=== PATIENT | male | born 1940 | race American Indian/Alaskan Native ===

== ENCOUNTER 2022-01-25 16:54 | Inpatient (IN) | payer MEDICARE ==
--- NOTE | 2022-01-25 17:59 | XRay Report ---
CHEST 2 VIEWS INDICATION / CLINICAL INFORMATION: Syncope. COMPARISON: None available. FINDINGS: SUPPORT DEVICES: None. HEART / MEDIASTINUM: Cardiomegaly with normal pulmonary vascularity. LUNGS / PLEURA: No significant pulmonary or pleural abnormality. No pneumothorax. ADDITIONAL FINDINGS: No significant additional findings. IMPRESSION: 1. Cardiomegaly without CHF Signer Name: Andrew Elder MD Signed: 01/25/2022 5:55 PM Workstation Name: [id number]
[2022-01-25 18:26] LABS: Hematocrit 45.7 % (35.5-45.6); Hemoglobin 15.6 gm/dl (11.8-15.2); Mean Corpuscular HGB Conc 34 % (32-34); Mean Corpuscular Volume 92 fl (84-94); Platelet Count 146 K/mm3 (140-440); Red Blood Count 4.97 M/mm3 (3.65-5.03); Red Cell Distribution Width 14.2 % (13.2-15.2)
[2022-01-25 18:36] LABS: INR 1.64 (0.87-1.13)
[2022-01-25 18:49] LABS: Alanine Aminotransferase 15 units/L (7-56); Albumin 3.8 g/dL (3.9-5); BUN/Creatinine Ratio 15; Blood Urea Nitrogen 17 mg/dL (9-20); Calcium 9.6 mg/dL (8.4-10.2); Hemolysis Index 15
[2022-01-25 19:41] LABS: HDL Cholesterol 49 mg/dL (40-59); LDL Cholesterol,Direct 87 mg/dL (50-130)
--- NOTE | 2022-01-25 20:12 | Cat Scan Report ---
CT head/brain wo con INDICATION / CLINICAL INFORMATION: 81 years Male; SYNCOPE. TECHNIQUE: Routine CT head without contrast. All CT scans at this location are performed using CT dos e reduction for ALARA by means of automated exposure control. COMPARISON: None. FINDINGS: BRAIN / INTRACRANIAL CONTENTS: No acute hemorrhage, mass effect, midline shift, hydrocephalus, or acu te, large territorial infarct. Mild to moderate, diffuse cerebral and cerebellar atrophy. There are [id number] areas of decreased attenuation in the white matter of the cerebral hemisph eres. These are nonspecific findings and may be related to microangiopathy (hypertension, diabetes, a therosclerosis), given the patient's age. It might be difficult to evaluate for small areas of ischem ia without diffusion imaging by MRI. CRANIOCERVICAL JUNCTION: No significant abnormality. ORBITS: No significant abnormality of visualized orbits. SINUSES / MASTOIDS: Visualized paranasal sinuses and mastoid air cells are essentially clear. ADDITIONAL FINDINGS: Atherosclerotic disease is seen in the anterior circulation. IMPRESSION: 1. No focal mass, hemorrhage, hydrocephalus, or acute, large territorial infarct. Signer Name: Carlos Gil MD, III Signed: 01/25/2022 8:08 PM Workstation Name: [id number]
[2022-01-25 20:19] LABS: Basophils % (Manual) 0 % (0.0-1.8); RBC Morphology Normal; Total Cells Counted 100
[2022-01-25] MEDS ORDERED: SODIUM CHLORIDE 0.9% 1000 ML 1,000 ML IV ONE (23:34)
[2022-01-26 00:05] LABS: INR 1.56 (0.87-1.13)
[2022-01-26] MEDS ORDERED: ONDANSETRON 4 MG/2 ML INJ IV PRN (02:16)
[2022-01-26] MEDS ORDERED: MORPHINE 4 MG/1 ML INJ IV PRN (02:16)
[2022-01-26] MEDS ORDERED: ACETAMINOPHEN 325 MG TAB PO PRN (02:16)
[2022-01-26] MEDS ORDERED: MORPHINE 2 MG/1 ML INJ IV PRN (02:16)
--- NOTE | 2022-01-26 02:18 | Emergency Department Report ---
ED General Adult HPI - General Chief complaint: Syncope Stated complaint: LOOSING TOO MUCH WATER/FAINTED Time Seen by Provider: 01/25/22 23:31 Source: patient Mode of arrival: Ambulatory Limitations: No Limitations - History of Present Illness Severity scale (0 -10): 0 - Related Data Allergies Allergy/AdvReac Type Severity Reaction Status Date / Time No Known Allergies Allergy Verified 01/25/22 17:25 ED Review of Systems ROS: Stated complaint: LOOSING TOO MUCH WATER/FAINTED Other details as noted in HPI ED Physical Exam - General Limitations: No Limitations General appearance: alert, in no apparent distress - Head Head exam: Present: atraumatic, normocephalic - Eye Eye exam: Present: normal appearance - ENT ENT exam: Present: mucous membranes moist - Neck Neck exam: Present: normal inspection - Respiratory Respiratory exam: Present: normal lung sounds bilaterally. Absent: respiratory distress - Cardiovascular Cardiovascular Exam: Present: regular rate, normal rhythm. Absent: systolic murmur, diastolic murmur, rubs, gallop - GI/Abdominal GI/Abdominal exam: Present: soft, normal bowel sounds - Rectal Rectal exam: Present: deferred - Extremities Exam Extremities exam: Present: normal inspection - Back Exam Back exam: Present: normal inspection - Neurological Exam Neurological exam: Present: alert, oriented X3 - Psychiatric Psychiatric exam: Present: normal affect, normal mood - Skin Skin exam: Present: warm, dry, intact, normal color. Absent: rash ED Course Vital Signs 01/25/22 01/25/22 01/25/22 17:20 23:18 23:30 Temperature 98.3 F Pulse Rate 60 62 Respiratory 20 20 Rate Blood Pressure Blood Pressure 95/63 [Right] O2 Sat by Pulse 100 95 Oximetry 01/25/22 01/25/22 01/26/22 23:31 23:45 00:01 Temperature Pulse Rate 64 64 59 L Respiratory 19 17 16 Rate Blood Pressure 133/86 133/86 133/86 Blood Pressure [Right] O2 Sat by Pulse 81 L 98 97 Oximetry 01/26/22 01/26/22 01/26/22 00:15 00:31 00:45 Temperature Pulse Rate 56 L 65 72 Respiratory 22 15 19 Rate Blood Pressure 133/86 117/73 117/73 Blood Pressure [Right] O2 Sat by Pulse 99 46 L 36 L Oximetry 01/26/22 01/26/22 01:01 01:15 Temperature Pulse Rate 63 68 Respiratory 15 16 Rate Blood Pressure 118/75 118/75 Blood Pressure [Right] O2 Sat by Pulse Oximetry ED Medical Decision Making - Lab Data Result diagrams: 01/25/22 17:57 01/25/22 17:57 - EKG Data -: EKG Interpreted by Me - EKG Data Interpretation: other (afib ) - Radiology Data Radiology results: pending, report reviewed, image reviewed - Medical Decision Making work up showed elevated trop , head CT negative , will admit for obs and card consult Critical care attestation.: If time is entered above; I have spent that time in minutes in the direct care of this critically ill patient, excluding procedure time. ED Disposition Clinical Impression: Syncope, Elevated troponin Disposition: ADMITTED INPATIENT Is pt being admited?: Yes Does the pt Need Aspirin: No Condition: Stable Instructions: Syncope (ED) Referrals: HAIR BOB MD [Primary Care Provider] - 3-5 Days
--- NOTE | 2022-01-26 02:29 | History and Physical Report ---
History of Present Illness Date of examination: 01/26/22 Date of admission: 01/26/2022 Chief complaint: Syncope History of present illness: 81-year-old -[place] male with significant past medical history of atrial fibrillation on Eliquis presents to the emergency room today for evaluation after having a syncopal episode. 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 He denies any chest pain or shortness of breath, denies any headache or dizziness denies any diaphoresis. Patient denies any fever or chills, no nausea or vomiting and no abdominal pain. [facility] Work-up in the emergency room today significant findings on the labs white troponin of 0.074. BNP of 4367. Chest x-ray reveals cardiomegaly without CHF. CT scan of the head was unremarkable. Patient being admitted for evaluation of his syncopal episode and the elevated troponin. Past History Past Medical History: atrial fib Past Surgical History: No surgical history Social history: no significant social history Family history: no significant family history Medications and Allergies Allergies Allergy/AdvReac Type Severity Reaction Status Date / Time No Known Allergies Allergy Verified 01/25/22 17:25 Active Meds: Active Medications Acetaminophen (Acetaminophen 325 Mg Tab) 650 mg PO Q4H PRN PRN Reason: Pain MILD(1-3)/Fever >100.5/CAMACHO Sodium Chloride (Nacl 0.9% 1000 Ml) 1,000 mls @ 250 mls/hr IV ONCE ONE Stop: 01/26/22 03:33 Last Admin: 01/26/22 00:03 Dose: 250 mls/hr Magnesium Hydroxide (Magnesium Hydroxide (Mom) Oral Liqd Udc) 30 ml PO Q4H PRN PRN Reason: Constipation Morphine Sulfate (Morphine 2 Mg/1 Ml Inj) 2 mg IV Q4H PRN PRN Reason: Pain, Moderate (4-6) Morphine Sulfate (Morphine 4 Mg/1 Ml Inj) 4 mg IV Q4H PRN PRN Reason: Pain , Severe (7-10) Ondansetron HCl (Ondansetron 4 Mg/2 Ml Inj) 4 mg IV Q8H PRN PRN Reason: Nausea And Vomiting Sodium Chloride (Sodium Chloride 0.9% 10 Ml Flush Syringe) 10 ml IV BID KELI Sodium Chloride (Sodium Chloride 0.9% 10 Ml Flush Syringe) 10 ml IV PRN PRN PRN Reason: LINE FLUSH Review of Systems Constitutional: no fever, no chills Ears, nose, mouth and throat: no nasal congestion, no sore throat Cardiovascular: no chest pain, no palpitations Respiratory: no cough, no shortness of breath Gastrointestinal: no abdominal pain, no nausea, no vomiting, no diarrhea Genitourinary Male: no dysuria, no hematuria, no flank pain Musculoskeletal: no neck pain, no low back pain Integumentary: no rash, no pruritis Neurological: no headaches, no confusion Psychiatric: no anxiety, no depression Endocrine: no polyphagia, no polydipsia, no polyuria, no nocturia Exam - Constitutional Vitals: Temp Pulse Resp BP Pulse Ox 98.3 F 68 16 118/75 36 L 01/25/22 17:20 01/26/22 01:15 01/26/22 01:15 01/26/22 01:15 01/26/22 00:45 General appearance: Present: no acute distress, well-nourished - EENT Eyes: Present: PERRL, EOM intact. Absent: scleral icterus ENT: hearing intact, clear oral mucosa, dentition normal - Neck Neck: Present: supple, normal ROM - Respiratory Respiratory effort: normal Respiratory: bilateral: CTA - Cardiovascular Rhythm: regular Heart Sounds: Present: S1 & S2. Absent: gallop, systolic murmur, diastolic murmur, rub, click - Extremities Extremities: no ischemia, pulses intact, pulses symmetrical, normal temperature, normal color, Full ROM Extremity abnormal: edema (2+ bilateral lower extremity edema) Peripheral Pulses: within normal limits - Abdominal General gastrointestinal: Present: soft, non-tender, non-distended, normal bowel sounds. Absent: mass - Integumentary Integumentary: Present: clear, warm, dry, normal turgor. Absent: rash - Musculoskeletal Musculoskeletal: strength equal bilaterally - Psychiatric Psychiatric: appropriate mood/affect, intact judgment & insight, memory intact, cooperative - Neurologic Neurologic: CNII-XII intact, no focal deficits, moves all extremities HEART Score - HEART Score Troponin: Troponin T 0.074 ng/mL (0.00-0.029) H 01/25/22 23:43 Results - Labs CBC & Chem 7: 01/25/22 17:57 01/25/22 17:57 Labs: Abnormal lab results 01/25/22 01/25/22 01/25/22 Range/Units 17:57 17:57 17:57 WBC 3.9 L (4.5-11.0) K/mm3 Hgb 15.6 H (11.8-15.2) gm/dl Hct 45.7 H (35.5-45.6) % Monocytes % (Manual) 20.0 H (0.0-7.3) % Lymphocytes # (Manual) 0.8 L (1.2-5.4) K/mm3 PT 21.4 H (12.2-14.9) Sec. INR 1.64 H (0.87-1.13) Sodium 135 L (137-145) mmol/L Chloride 91.4 L (98-107) mmol/L Carbon Dioxide 33 H (22-30) mmol/L Glucose 106 H (75-100) mg/dL Total Bilirubin 1.30 H (0.1-1.2) mg/dL Troponin T 0.074 H (0.00-0.029) ng/mL NT-Pro-B Natriuret Pep (0-900) pg/mL Albumin 3.8 L (3.9-5) g/dL 01/25/22 01/25/22 01/25/22 Range/Units 23:43 23:43 23:43 WBC (4.5-11.0) K/mm3 Hgb (11.8-15.2) gm/dl Hct (35.5-45.6) % Monocytes % (Manual) (0.0-7.3) % Lymphocytes # (Manual) (1.2-5.4) K/mm3 PT 20.6 H (12.2-14.9) Sec. INR 1.56 H (0.87-1.13) Sodium (137-145) mmol/L Chloride (98-107) mmol/L Carbon Dioxide (22-30) mmol/L Glucose (75-100) mg/dL Total Bilirubin (0.1-1.2) mg/dL Troponin T 0.074 H (0.00-0.029) ng/mL NT-Pro-B Natriuret Pep 4367 H (0-900) pg/mL Albumin (3.9-5) g/dL Assessment and Plan Assessment: 1. Syncope 2. Elevated troponin 3. History of A. fibrate controlled. Patient on Eliquis Plan: 1. Patient admitted and will be scheduled for echocardiogram, carotid Doppler. 2. Consult placed to cardiology for evaluation and recommendations. Patient follows up with 3. We will resume routine home medications once reconciled. 4 DVT prophylaxis: Patient currently on Eliquis. CODE STATUS: Full code
--- NOTE | 2022-01-26 10:31 | Consultation ---
History of Present Illness Consult date: 01/26/22 Consult reason: atrial fibrillation, congestive heart failure, syncope History of present illness: The patient is an 81-year-old man with a history of longstanding, dilated nonischemic cardiomyopathy. He has chronic atrial fibrillation on warfarin therapy. His cardiomyopathy dates back to 2007, when a cardiac catheterization demonstrated normal coronary arteries, but ejection fraction 20%. With medical therapy, he demonstrated near complete resolution of his cardiomyopathy by 2013. However in the past 2 weeks, he presented to the office with 3+ edema extending to the thighs, fatigue and dyspnea which was new occurring over the previous 2 weeks. We repeated the echocardiogram which now showed a recurrence of his card iomyopathy, ejection fraction was now back to 20 to 25%. The patient was recommended for hospitalization, but adamantly refused, preferring instead to be treated with oral diuretics at home. We placed him on furosemide and metolazone, which was effective and on return to the clinic a week later there was marked reduction in his lower extremity edema and his shortness of breath and fatigue had near complete resolution. He presented to the emergency room yesterday, following a syncopal episode at home. He surmises that the weakness and syncope was from his continued diuresis and possible volume loss. On his presentation to the emergency room, his heart rate was 60 and blood pressure was 95 systolic. This morning, he looks and feels better, has no chest pain, no shortness of breath and his edema is only restricted to the feet. There was no palpitations associated with the syncopal spell yesterday. EKG is atrial fibrillation with a well-controlled ventricular rate, no acute ST or T wave changes. Chest x-ray reveals a moderate severity cardiomegaly, but clear lungs. Past History Past Medical History: atrial fib, heart failure Past Surgical History: No surgical history Social history: no significant social history Family history: no significant family history Medications and Allergies Allergies Allergy/AdvReac Type Severity Reaction Status Date / Time No Known Allergies Allergy Verified 01/25/22 17:25 Home Medications Medication Instructions Recorded Confirmed Last Taken Type Aspirin BABY CHEW TAB 81 mg PO DAILY 01/26/22 01/26/22 01/25/22 10:00 History AtorvaSTATin 10 mg PO DAILY 01/26/22 01/26/22 01/25/22 10:00 History Coreg 3.125 mg PO BID 01/26/22 01/26/22 01/25/22 16:00 History Furosemide [Lasix] 40 mg PO DAILY 01/26/22 01/26/22 01/25/22 10:00 History Lisinopril [Zestril TAB] 2.5 mg PO QDAY 01/26/22 01/26/22 01/25/22 10:00 History Spironolactone [Aldactone] 25 mg PO QDAY 01/26/22 01/26/22 01/25/22 History Warfarin [Coumadin] 4 mg PO DAILY 01/26/22 01/26/22 01/25/22 16:00 History Active Meds: Active Medications Acetaminophen (Acetaminophen 325 Mg Tab) 650 mg PO Q4H PRN PRN Reason: Pain MILD(1-3)/Fever >100.5/CAMACHO Magnesium Hydroxide (Magnesium Hydroxide (Mom) Oral Liqd Udc) 30 ml PO Q4H PRN PRN Reason: Constipation Morphine Sulfate (Morphine 2 Mg/1 Ml Inj) 2 mg IV Q4H PRN PRN Reason: Pain, Moderate (4-6) Morphine Sulfate (Morphine 4 Mg/1 Ml Inj) 4 mg IV Q4H PRN PRN Reason: Pain , Severe (7-10) Ondansetron HCl (Ondansetron 4 Mg/2 Ml Inj) 4 mg IV Q8H PRN PRN Reason: Nausea And Vomiting Sodium Chloride (Sodium Chloride 0.9% 10 Ml Flush Syringe) 10 ml IV BID KELI Sodium Chloride (Sodium Chloride 0.9% 10 Ml Flush Syringe) 10 ml IV PRN PRN PRN Reason: LINE FLUSH Review of Systems Cardiovascular: syncope, lightheadedness, shortness of breath, no chest pain, no orthopnea, no palpitations, no rapid/irregular heart beat, no edema Physical Examination Vital Signs Temp Pulse Resp BP Pulse Ox 98.3 F 60 20 95/63 100 01/25/22 17:20 01/25/22 17:20 01/25/22 17:20 01/25/22 17:20 01/25/22 17:20 General appearance: no acute distress HEENT: Positive: PERRL Neck: Positive: neck supple Cardiac: Positive: irregularly irregular Lungs: Positive: Decreased Breath Sounds Neuro: Positive: Grossly Intact Abdomen: Positive: Soft Male genitourinary: Positive: deferred Skin: Positive: Clear Extremities: Present: +1 Edema Results 01/25/22 17:57 01/25/22 17:57 Cardiac Enzymes 01/25/22 Range/Units 17:57 AST 27 (5-40) units/L Coagulation 01/25/22 01/25/22 Range/Units 17:57 23:43 PT 21.4 H 20.6 H (12.2-14.9) Sec. INR 1.64 H 1.56 H (0.87-1.13) Lipids 01/25/22 Range/Units 17:57 Triglycerides 78 (2-149) mg/dL Cholesterol 147 (50-199) mg/dL HDL Cholesterol 49 (40-59) mg/dL Cholesterol/HDL Ratio 3.00 % CBC 01/25/22 Range/Units 17:57 WBC 3.9 L (4.5-11.0) K/mm3 RBC 4.97 (3.65-5.03) M/mm3 Hgb 15.6 H (11.8-15.2) gm/dl Hct 45.7 H (35.5-45.6) % Plt Count 146 (140-440) K/mm3 Comprehensive Metabolic Panel 01/25/22 Range/Units 17:57 Sodium 135 L (137-145) mmol/L Potassium 3.7 (3.6-5.0) mmol/L Chloride 91.4 L (98-107) mmol/L Carbon Dioxide 33 H (22-30) mmol/L BUN 17 (9-20) mg/dL Creatinine 1.1 (0.8-1.3) mg/dL Glucose 106 H (75-100) mg/dL Calcium 9.6 (8.4-10.2) mg/dL AST 27 (5-40) units/L ALT 15 (7-56) units/L Alkaline Phosphatase 71 (35-129) units/L Total Protein 7.3 (6.3-8.2) g/dL Albumin 3.8 L (3.9-5) g/dL EKG interpretations - Telemetry EKG Rhythm: Atrial Fibrillation Assessment and Plan - Patient Problems (1) Syncope Current Visit: Yes Status: Acute Plan to address problem: Syncope likely due to hypovolemia following recent diuresis, but due to underlying cardiomyopathy, I would recommend LifeVest monitoring. I have order ed a LifeVest and following LifeVest fitting, the patient will be stable for cardiac discharge. With regards to his medications, I will reduce the doses of lisinopril, and discontinue metolazone. Continue furosemide at moderate doses. (2) Chronic systolic heart failure Current Visit: Yes Status: Acute Plan to address problem: Patient has acute on chronic systolic heart failure which is resolving with outpatient medical therapy as outlined above.
--- NOTE | 2022-01-26 13:51 | Electrocardiograph Report ---
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
--- NOTE | 2022-01-26 14:49 | Vascular Lab Report ---
DUPLEX DOPPLER ULTRASOUND CAROTID, BILATERAL INDICATION / CLINICAL INFORMATION: syncope. COMPARISON: None available. FINDINGS: RIGHT CAROTID: Moderate atherosclerotic plaque. - PLAQUE ESTIMATE (%): < 50% - CCA velocity: 51 cm/sec. - ICA peak systolic velocity: 43 cm/sec. - ICA/CCA PSV Ratio: Less than 2. Right Vertebral Artery: Antegrade flow. LEFT CAROTID: Moderate atherosclerotic plaque. - PLAQUE ESTIMATE (%): < 50% - CCA velocity: 34 cm/sec. - ICA peak systolic velocity: 68 cm/sec. - ICA/CCA PSV Ratio: 2.0 Left Vertebral Artery: Antegrade flow. IMPRESSION: 1. Right Internal Carotid Artery: Less than 50% diameter stenosis. 2. Left Internal Carotid Artery: Less than 50% diameter stenosis. Velocity criteria are extrapolated from diameter data as defined by the Society of Radiologists in Ul trasound Consensus Conference, Radiology 2003; 229;340-346. NO STENOSIS (NORMAL) - Plaque = none; ICA PSV < 125 cm/sec; ICA/CCA PSV Ratio < 2.0 <50% STENOSIS - Plaque < 50%; ICA PSV < 125 cm/sec; ICA/CCA PSV Ratio < 2.0 50-69% STENOSIS - Plaque > 50%; ICA PSV = 125-230 cm/sec; ICA/CCA PSV Ratio = 2.0-4.0 >70% BUT <100% STENOSIS - Plaque > 50%; ICA PSV > 230 cm/sec; ICA/CCA PSV Ratio > 4.0 NEAR OCCLUSION - Plaque = visible lumen; ICA PSV = high/low/none; ICA/CCA PSV Ratio = variable TOTAL OCCLUSION - Plaque = no lumen; ICA PSV = none; ICA/CCA PSV Ratio = N/A Scribed by: Natalie Vergara RDMS, RVT, RMSKS Scribed: 01/26/2022 12:39 PM I have reviewed the images, agree with this report, and edited this report as needed. Signer Name: Mario Casey MD Signed: 01/26/2022 2:45 PM Workstation Name: [email or web address]
[2022-01-26] MEDS: FUROSEMIDE 40 MG TAB PO SCH (16:48)
[2022-01-26] MEDS: carvediloL 3.125 MG TAB PO SCH ×2 (16:48→22:23)
[2022-01-26] MEDS: SPIRONOLACTONE 25 MG TAB PO SCH (16:49)
[2022-01-26] MEDS ORDERED: WARFARIN 5 MG TAB PO SCH ×2 (17:00)
--- NOTE | 2022-01-27 02:02 | Event Note ---
Date: 01/26/22 Patient seen and evaluated Patient evaluated Admitted for syncopal episode at home Patient has nonischemic cardiomyopathy with ejection fraction for 20% Follows with [facility] heart cardiology consult appreciated Patient with atrial fibrillation he is rate controlled and on Eliquis Patient attributes his syncope to diuretics Called Glucoscan blockages less than 50% Echocardiogram done in the office 20 to 25% Possible discharge tomorrow if patient is stable Time spent 25 minutes
[2022-01-27 05:17] LABS: Basophils % (Auto) 0.8 % (0.0-1.8); Eosinophils % (Auto) 0.7 % (0.0-4.3); Hematocrit 47.8 % (35.5-45.6); Hemoglobin 16.1 gm/dl (11.8-15.2); Lymphocytes # (Auto) 0.6 K/mm3 (1.2-5.4); Lymphocytes % (Auto) 12.8 % (13.4-35.0); Mean Corpuscular HGB Conc 34 % (32-34); Mean Corpuscular Volume 93 fl (84-94); Monocytes # (Auto) 0.7 K/mm3 (0.0-0.8); Platelet Count 149 K/mm3 (140-440); Red Blood Count 5.15 M/mm3 (3.65-5.03); Red Cell Distribution Width 14.2 % (13.2-15.2)
[2022-01-27 05:31] LABS: INR 1.57 (0.87-1.13)
[2022-01-27 05:36] LABS: BUN/Creatinine Ratio 22; Blood Urea Nitrogen 22 mg/dL (9-20); Calcium 9.1 mg/dL (8.4-10.2); Hemolysis Index 84
--- NOTE | 2022-01-27 09:02 | Discharge Summary ---
Providers - Providers Date of Admission: 01/26/22 02:17 Date of discharge: 01/27/22 Attending physician: ELMER BELTRAN MD 01/26/22 02:16 Consult to Physician [CONS] Routine Comment: Consulting Provider: CASSY BROOKS Physician Instructions: Reason For Exam: Syncope, Elevated troponin Primary care physician: HAIR BOB Hospitalization Reason for admission: Syncope Condition: Stable Pertinent studies: Reviewed. Procedures: None. Hospital course: Patient is a 81-year-old male with past medical history of atrial fibrillation on Eliquis, longstanding dilated nonischemic cardiomyopathy who presented to the ED for evaluation after syncopal episodes at home. 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 Patient denied any chest pain, shortness of breath, headache, dizziness, diaphoresis, fevers or chills, nausea, vomiting, abdominal pain, or altered mentation. Patient follows up with [facility]. On presentation, the patient was found to to have soft blood pressure of 95/63 that improved with IV fluid resuscitation. Cardiology was consulted upon admission. Patient's metolazone was discontinued. His dose of lisinopril was also reduced. Patient was evaluated with chest x-ray, CT head noncontrast, and bilateral carotid Dopplers that were unremarkable. Cardiology recommended LifeVest for patient. Patient is medically clear for discharge. Disposition: 01 HOME / SELF CARE / HOMELESS Final Discharge Diagnosis (Prints w/discharge instructions): Syncope, nonischemic cardiomyopathy, chronic atrial fibrillation on Eliquis Time spent for discharge: 45 min Core Measure Documentation - Palliative Care Palliative Care/ Comfort Measures: Not Applicable - Core Measures Any of the following diagnoses?: history only Exam - Constitutional Vitals: Temp Pulse Resp BP Pulse Ox 98.2 F 55 L 16 114/70 85 01/27/22 05:50 01/27/22 05:50 01/27/22 05:50 01/27/22 05:50 01/27/22 05:50 Plan Activity: advance as tolerated Diet: low salt Additional Instructions: Patient is a 81-year-old male with past medical history of atrial fibrillation on Eliquis, longstanding dilated nonischemic cardiomyopathy who presented to the ED for evaluation after syncopal episodes at home. 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 Patient denied any chest pain, shortness of breath, headache, dizziness, diaphoresis, fevers or chills, nausea, vomiting, abdominal pain, or altered mentation. Patient follows up with [facility]. On presentation, the patient was found to to have soft blood pressure of 95/63 that improved with IV fluid resuscitation. Cardiology was consulted upon admission. Patient's metolazone was discontinued. His dose of lisinopril was also reduced. Patient was evaluated with chest x-ray, CT head noncontrast, and bilateral carotid Dopplers that were unremarkable. Cardiology recommended LifeVest for patient. Patient is medically clear for discharge. Care Plan Goals: Patient is medically clear for discharge. Assessment: Patient is a 81-year-old male with past medical history of atrial fibrillation on Eliquis, longstanding dilated nonischemic cardiomyopathy who presented to the ED for evaluation after syncopal episodes at home. 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 Patient denied any chest pain, shortness of breath, headache, dizziness, diaphoresis, fevers or chills, nausea, vomiting, abdominal pain, or altered mentation. Patient follows up with [facility]. On presentation, the patient was found to to have soft blood pressure of 95/63 that improved with IV fluid resuscitation. Cardiology was consulted upon admission. Patient's metolazone was discontinued. His dose of lisinopril was also reduced. Patient was evaluated with chest x-ray, CT head noncontrast, and bilateral carotid Dopplers that were unremarkable. Cardiology recommended LifeVest for patient. Patient is medically clear for discharge. Follow up with: HAIR BOB MD [Primary Care Provider] - 3-5 Days
--- NOTE | 2022-01-27 09:32 | Progress Note ---
Assessment and Plan 1. Chronic combined systolic and diastolic heart failure 2. Dilated nonischemic cardiomyopathy 3. Chronic atrial fibrillation with a controlled ventricular response 4. Syncope and collapse Plan. Patient is currently stable etiology of syncope and collapse was felt to be secondary to excessive diuresis. Medication has been adjusted. 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 Subjective Date of service: 01/27/22 Interval history: No cardiac symptoms Objective Vital Signs Temp Pulse Resp BP BP Pulse Ox 01/27/22 09:03 97.3 F L 01/27/22 09:00 20 98 01/27/22 08:09 53 L 20 132/89 97 01/27/22 05:50 98.2 F 55 L 16 114/70 85 01/26/22 23:01 98.1 F 53 L 16 104/71 100 01/26/22 20:55 60 98 01/26/22 19:08 98.9 F 87 18 123/88 99 01/26/22 17:00 18 100 01/26/22 13:21 19 94/63 - Physical Examination General: Appears Well, No Apparent Distress HEENT: Positive: PERRL Neck: Positive: neck supple, trachea midline. Negative: JVD/HJR Cardiac: Positive: Reg Rate and Rhythm, irregularly irregular, S1/S2, PMI, Dilated, Laterally Displaced Lungs: Positive: clear to auscultation, No Wheeze, Rales, Rhonchi Neuro: Positive: Grossly Intact Abdomen: Positive: Soft Skin: Positive: Clear Extremities: Absent: edema - Labs and Meds Coagulation 01/27/22 Range/Units 04:34 PT 21.1 H (12.2-14.9) Sec. INR 1.57 H (0.87-1.13) CBC 01/27/22 Range/Units 04:34 WBC 4.5 (4.5-11.0) K/mm3 RBC 5.15 H (3.65-5.03) M/mm3 Hgb 16.1 H (11.8-15.2) gm/dl Hct 47.8 H (35.5-45.6) % Plt Count 149 (140-440) K/mm3 Lymph # (Auto) 0.6 L (1.2-5.4) K/mm3 Spink # (Auto) 0.7 (0.0-0.8) K/mm3 Eos # (Auto) 0.0 (0.0-0.4) K/mm3 Baso # (Auto) 0.0 (0.0-0.1) K/mm3 Comprehensive Metabolic Panel 01/27/22 Range/Units 04:34 Sodium 138 (137-145) mmol/L Potassium 4.1 (3.6-5.0) mmol/L Chloride 94.8 L (98-107) mmol/L Carbon Dioxide 31 H (22-30) mmol/L BUN 22 H (9-20) mg/dL Creatinine 1.0 (0.8-1.3) mg/dL Glucose 85 (75-100) mg/dL Calcium 9.1 (8.4-10.2) mg/dL
[2022-01-27] MEDS: FUROSEMIDE 40 MG TAB PO SCH (10:15)
[2022-01-27] MEDS: carvediloL 3.125 MG TAB PO SCH ×2 (10:15→22:07)
[2022-01-27] MEDS: LISINOPRIL 5 MG TAB PO SCH (10:15)
[2022-01-27] MEDS: SPIRONOLACTONE 25 MG TAB PO SCH (10:16)
--- NOTE | 2022-01-27 13:16 | Progress Note ---
Assessment and Plan Assessment and plan: #Syncope Likely secondary to overdiuresis given recent increase in diuretic dose by outpatient clinical systems educator #Dilated nonischemic cardiomyopathy Continue Coreg 3.125 mg twice daily, p.o. Lasix 40 mg daily, lisinopril 2.5 mg daily, spironolactone 25 mg daily. Mother told his own has been discontinued. Cardiology consulted; appreciate recs Pending LifeVest. #Rate controlled atrial fibrillation Patient will continue warfarin 5 mg daily (INR goal 23) #Discharge planning - Patient is pending LifeVest - Case management has been made aware. - Discharge is tentatively 48-72 hours #Advanced care planning -Disease education conducted, care plan discussed, diagnoses discussed, prognosis discussed, and patient acknowledges understanding with care plan -Time: +30 min Disposition Plan: Continue medical management Total Time Spent with Patient (Minutes): 45 min History Interval history: No acute events overnight. Hospitalist Physical - Constitutional Vitals: Temp Pulse Resp BP Pulse Ox 97.3 F L 53 L 20 132/89 98 01/27/22 09:03 01/27/22 08:09 01/27/22 09:00 01/27/22 08:09 01/27/22 09:00 General appearance: Present: no acute distress, well-nourished - EENT Eyes: Present: PERRL, EOM intact ENT: hearing intact, clear oral mucosa, dentition normal - Neck Neck: Present: supple, normal ROM - Respiratory Respiratory effort: normal Respiratory: bilateral: CTA - Cardiovascular Rhythm: regular Heart Sounds: Present: S1 & S2 - Extremities Extremities: no ischemia, pulses intact, pulses symmetrical, No edema, normal temperature, normal color, Full ROM Peripheral Pulses: within normal limits - Abdominal General gastrointestinal: soft, non-tender, non-distended, normal bowel sounds - Integumentary Integumentary: Present: clear, warm, dry - Psychiatric Psychiatric: appropriate mood/affect, intact judgment & insight, memory intact, cooperative - Neurologic Neurologic: CNII-XII intact, moves all extremities - Allied Health Allied health notes reviewed: nursing HEART Score - HEART Score Troponin: Troponin T 0.074 ng/mL (0.00-0.029) H 01/25/22 23:43 Results - Labs CBC & Chem 7: 01/27/22 04:34 01/27/22 04:34 Labs: Laboratory Last Values WBC 4.5 K/mm3 (4.5-11.0) 01/27/22 04:34 RBC 5.15 M/mm3 (3.65-5.03) H 01/27/22 04:34 Hgb 16.1 gm/dl (11.8-15.2) H 01/27/22 04:34 Hct 47.8 % (35.5-45.6) H 01/27/22 04:34 MCV 93 fl (84-94) 01/27/22 04:34 MCH 31 pg (28-32) 01/27/22 04:34 MCHC 34 % (32-34) 01/27/22 04:34 RDW 14.2 % (13.2-15.2) 01/27/22 04:34 Plt Count 149 K/mm3 (140-440) 01/27/22 04:34 Lymph % (Auto) 12.8 % (13.4-35.0) L 01/27/22 04:34 [place]un % (Auto) 16.0 % (0.0-7.3) H 01/27/22 04:34 Eos % (Auto) 0.7 % (0.0-4.3) 01/27/22 04:34 Baso % (Auto) 0.8 % (0.0-1.8) 01/27/22 04:34 Lymph # (Auto) 0.6 K/mm3 (1.2-5.4) L 01/27/22 04:34 [place]un # (Auto) 0.7 K/mm3 (0.0-0.8) 01/27/22 04:34 Eos # (Auto) 0.0 K/mm3 (0.0-0.4) 01/27/22 04:34 Baso # (Auto) 0.0 K/mm3 (0.0-0.1) 01/27/22 04:34 Add Manual Diff Complete 01/25/22 17:57 Total Counted 100 01/25/22 17:57 Seg Neutrophils % 69.7 % (40.0-70.0) 01/27/22 04:34 Seg Neuts % (Manual) 59.0 % (40.0-70.0) 01/25/22 17:57 Band Neutrophils % 0 % 01/25/22 17:57 Lymphocytes % (Manual) 20.0 % (13.4-35.0) 01/25/22 17:57 Reactive Lymphs % (Man) 0 % 01/25/22 17:57 Monocytes % (Manual) 20.0 % (0.0-7.3) H 01/25/22 17:57 Eosinophils % (Manual) 1.0 % (0.0-4.3) 01/25/22 17:57 Basophils % (Manual) 0 % (0.0-1.8) 01/25/22 17:57 Metamyelocytes % 0 % 01/25/22 17:57 Myelocytes % 0 % 01/25/22 17:57 Promyelocytes % 0 % 01/25/22 17:57 Blast Cells % 0 % 01/25/22 17:57 Nucleated RBC % Not Reportable 01/25/22 17:57 Seg Neutrophils # 3.1 K/mm3 (1.8-7.7) 01/27/22 04:34 Seg Neutrophils # Man 2.3 K/mm3 (1.8-7.7) 01/25/22 17:57 Band Neutrophils # 0.0 K/mm3 01/25/22 17:57 Lymphocytes # (Manual) 0.8 K/mm3 (1.2-5.4) L 01/25/22 17:57 Abs React Lymphs (Man) 0.0 K/mm3 01/25/22 17:57 Monocytes # (Manual) 0.8 K/mm3 (0.0-0.8) 01/25/22 17:57 Eosinophils # (Manual) 0.0 K/mm3 (0.0-0.4) 01/25/22 17:57 Basophils # (Manual) 0.0 K/mm3 (0.0-0.1) 01/25/22 17:57 Metamyelocytes # 0.0 K/mm3 01/25/22 17:57 Myelocytes # 0.0 K/mm3 01/25/22 17:57 Promyelocytes # 0.0 K/mm3 01/25/22 17:57 Blast Cells # 0.0 K/mm3 01/25/22 17:57 WBC Morphology Not Reportable 01/25/22 17:57 Hypersegmented Neuts Not Reportable 01/25/22 17:57 Hyposegmented Neuts Not Reportable 01/25/22 17:57 Hypogranular Neuts Not Reportable 01/25/22 17:57 Smudge Cells Not Reportable 01/25/22 17:57 Toxic Granulation Not Reportable 01/25/22 17:57 Toxic Vacuolation Not Reportable 01/25/22 17:57 Dohle Bodies Not Reportable 01/25/22 17:57 Pelger-Huet Anomaly Not Reportable 01/25/22 17:57 Bruno Rods Not Reportable 01/25/22 17:57 Platelet Estimate Not Reportable 01/25/22 17:57 Clumped Platelets Not Reportable 01/25/22 17:57 Plt Clumps, EDTA Not Reportable 01/25/22 17:57 Large Platelets Not Reportable 01/25/22 17:57 Giant Platelets Not Reportable 01/25/22 17:57 Platelet Satelliting Not Reportable 01/25/22 17:57 Plt Morphology Comment Not Reportable 01/25/22 17:57 RBC Morphology Normal 01/25/22 17:57 Dimorphic RBCs Not Reportable 01/25/22 17:57 Polychromasia Not Reportable 01/25/22 17:57 Hypochromasia Not Reportable 01/25/22 17:57 Poikilocytosis Not Reportable 01/25/22 17:57 Anisocytosis Not Reportable 01/25/22 17:57 Microcytosis Not Reportable 01/25/22 17:57 Macrocytosis Not Reportable 01/25/22 17:57 Spherocytes Not Reportable 01/25/22 17:57 Pappenheimer Bodies Not Reportable 01/25/22 17:57 Sickle Cells Not Reportable 01/25/22 17:57 Target Cells Not Reportable 01/25/22 17:57 Tear Drop Cells Not Reportable 01/25/22 17:57 Ovalocytes Not Reportable 01/25/22 17:57 Helmet Cells Not Reportable 01/25/22 17:57 [place] Bodies Not Reportable 01/25/22 17:57 [place] Rings Not Reportable 01/25/22 17:57 Nori Cells Not Reportable 01/25/22 17:57 Bite Cells Not Reportable 01/25/22 17:57 Crenated Cell Not Reportable 01/25/22 17:57 Elliptocytes Not Reportable 01/25/22 17:57 Acanthocytes (Spur) Not Reportable 01/25/22 17:57 Rouleaux Not Reportable 01/25/22 17:57 Hemoglobin C Crystals Not Reportable 01/25/22 17:57 Schistocytes Not Reportable 01/25/22 17:57 Malaria parasites Not Reportable 01/25/22 17:57 Jayesh Bodies Not Reportable 01/25/22 17:57 Hem Pathologist Commnt No 01/25/22 17:57 PT 21.1 Sec. (12.2-14.9) H 01/27/22 04:34 INR 1.57 (0.87-1.13) H 01/27/22 04:34 Sodium 138 mmol/L (137-145) 01/27/22 04:34 Potassium 4.1 mmol/L (3.6-5.0) 01/27/22 04:34 Chloride 94.8 mmol/L (98-107) L 01/27/22 04:34 Carbon Dioxide 31 mmol/L (22-30) H 01/27/22 04:34 Anion Gap 16 mmol/L 01/27/22 04:34 BUN 22 mg/dL (9-20) H 01/27/22 04:34 Creatinine 1.0 mg/dL (0.8-1.3) 01/27/22 04:34 Estimated GFR > 60 ml/min 01/27/22 04:34 BUN/Creatinine Ratio 22 % 01/27/22 04:34 Glucose 85 mg/dL (75-100) 01/27/22 04:34 Calcium 9.1 mg/dL (8.4-10.2) 01/27/22 04:34 Total Bilirubin 1.30 mg/dL (0.1-1.2) H 01/25/22 17:57 AST 27 units/L (5-40) 01/25/22 17:57 ALT 15 units/L (7-56) 01/25/22 17:57 Alkaline Phosphatase 71 units/L (35-129) 01/25/22 17:57 Troponin T 0.074 ng/mL (0.00-0.029) H 01/25/22 23:43 NT-Pro-B Natriuret Pep 4367 pg/mL (0-900) H 01/25/22 23:43 Total Protein 7.3 g/dL (6.3-8.2) 01/25/22 17:57 Albumin 3.8 g/dL (3.9-5) L 01/25/22 17:57 Albumin/Globulin Ratio 1.1 % 01/25/22 17:57 Triglycerides 78 mg/dL (2-149) 01/25/22 17:57 Cholesterol 147 mg/dL (50-199) 01/25/22 17:57 LDL Cholesterol Direct 87 mg/dL (50-130) 01/25/22 17:57 HDL Cholesterol 49 mg/dL (40-59) 01/25/22 17:57 Cholesterol/HDL Ratio 3.00 % 01/25/22 17:57 Garvin/IV: Voiding Method Toilet Active Medications - Current Medications Current Medications: Generic Name Dose Route Start Last Admin Trade Name Freq PRN Reason Stop Dose Admin Acetaminophen 650 mg 01/26/22 02:16 Acetaminophen 325 Mg Tab PO Q4H PRN Pain MILD(1-3)/Fever >100.5/CAMACHO Carvedilol 3.125 mg 01/26/22 13:00 01/27/22 10:15 Carvedilol 3.125 Mg Tab PO 3.125 mg BID KELI Administration Furosemide 40 mg 01/26/22 13:00 01/27/22 10:15 Furosemide 40 Mg Tab PO 40 mg QDAY KELI Administration Lisinopril 2.5 mg 01/27/22 10:00 01/27/22 10:15 Lisinopril 5 Mg Tab PO 2.5 mg QDAY KELI Administration Magnesium Hydroxide 30 ml 01/26/22 02:16 Magnesium Hydroxide (Mom) Oral Liqd Udc PO Q4H PRN Constipation Morphine Sulfate 2 mg 01/26/22 02:16 Morphine 2 Mg/1 Ml Inj IV Q4H PRN Pain, Moderate (4-6) Morphine Sulfate 4 mg 01/26/22 02:16 Morphine 4 Mg/1 Ml Inj IV Q4H PRN Pain , Severe (7-10) Ondansetron HCl 4 mg 01/26/22 02:16 Ondansetron 4 Mg/2 Ml Inj IV Q8H PRN Nausea And Vomiting Sodium Chloride 10 ml 01/26/22 10:00 01/27/22 10:16 Sodium Chloride 0.9% 10 Ml Flush Syringe IV 10 ml BID KELI Administration Sodium Chloride 10 ml 01/26/22 02:16 Sodium Chloride 0.9% 10 Ml Flush Syringe IV PRN PRN LINE FLUSH Spironolactone 25 mg 01/26/22 13:00 01/27/22 10:16 Spironolactone 25 Mg Tab PO 25 mg QDAY KELI Administration Warfarin Sodium 5 mg 01/26/22 17:00 01/26/22 16:50 Warfarin 5 Mg Tab PO 5 mg DAILY@1700 KELI Administration Warfarin Sodium 7.5 mg 01/27/22 17:00 Warfarin 7.5 Mg Tab PO 01/27/22 17:01 DAILY@1700 ONE
[2022-01-27] MEDS ORDERED: WARFARIN 7.5 MG TAB PO ONE (17:00)
[2022-01-28 05:15] LABS: INR 1.51 (0.87-1.13)
[2022-01-28] MEDS: SPIRONOLACTONE 25 MG TAB PO SCH (09:08)
[2022-01-28] MEDS: carvediloL 3.125 MG TAB PO SCH ×3 (09:09→21:21)
[2022-01-28] MEDS: LISINOPRIL 5 MG TAB PO SCH (09:09)
[2022-01-28] MEDS: FUROSEMIDE 40 MG TAB PO SCH (09:09)
--- NOTE | 2022-01-28 09:24 | Progress Note ---
Assessment and Plan Assessment and plan: #Syncoperesolved Likely secondary to overdiuresis given recent increase in diuretic dose by outpatient senior accountant #Dilated nonischemic cardiomyopathystable Continue Coreg 3.125 mg twice daily, p.o. Lasix 40 mg daily, lisinopril 2.5 mg daily, spironolactone 25 mg daily. Mother told his own has been discontinued. Cardiology consulted; appreciate recs Pending LifeVest. #Rate controlled atrial fibrillationstable Patient will continue warfarin 7.5 mg daily (INR goal 23) #Discharge planning - Patient is pending LifeVest - Case management has been made aware. - Discharge is tentatively 24-48 hours #Advanced care planning -Disease education conducted, care plan discussed, diagnoses discussed, prognosis discussed, and patient acknowledges understanding with care plan -Time: +30 min Disposition Plan: Pending LifeVest. Total Time Spent with Patient (Minutes): 30 min History Interval history: No acute events over night. The patient denies fevers, chills, nausea, vomiting, abdominal pain, chest pain/pressure, shortness of breath, urinary symptoms, we akness, or confusion. Hospitalist Physical - Constitutional Vitals: Temp Pulse Resp BP Pulse Ox 98.6 F 51 L 16 116/73 99 01/28/22 07:39 01/28/22 09:09 01/28/22 08:22 01/28/22 09:09 01/28/22 08:22 General appearance: Present: no acute distress, well-nourished - EENT Eyes: Present: PERRL, EOM intact ENT: hearing intact, clear oral mucosa, dentition normal - Neck Neck: Present: supple, normal ROM - Respiratory Respiratory effort: normal Respiratory: bilateral: CTA - Cardiovascular Rhythm: regular Heart Sounds: Present: S1 & S2 - Extremities Extremities: no ischemia, pulses intact, pulses symmetrical, No edema, normal temperature, normal color, Full ROM Peripheral Pulses: within normal limits - Abdominal General gastrointestinal: soft, non-tender, non-distended, normal bowel sounds - Integumentary Integumentary: Present: clear, warm, dry - Psychiatric Psychiatric: appropriate mood/affect, intact judgment & insight, memory intact, cooperative - Neurologic Neurologic: CNII-XII intact, moves all extremities - Allied Health Allied health notes reviewed: nursing HEART Score - HEART Score Troponin: Troponin T 0.074 ng/mL (0.00-0.029) H 01/25/22 23:43 Results - Labs CBC & Chem 7: 01/27/22 04:34 01/27/22 04:34 Labs: Laboratory Last Values WBC 4.5 K/mm3 (4.5-11.0) 01/27/22 04:34 RBC 5.15 M/mm3 (3.65-5.03) H 01/27/22 04:34 Hgb 16.1 gm/dl (11.8-15.2) H 01/27/22 04:34 Hct 47.8 % (35.5-45.6) H 01/27/22 04:34 MCV 93 fl (84-94) 01/27/22 04:34 MCH 31 pg (28-32) 01/27/22 04:34 MCHC 34 % (32-34) 01/27/22 04:34 RDW 14.2 % (13.2-15.2) 01/27/22 04:34 Plt Count 149 K/mm3 (140-440) 01/27/22 04:34 Lymph % (Auto) 12.8 % (13.4-35.0) L 01/27/22 04:34 [place] % (Auto) 16.0 % (0.0-7.3) H 01/27/22 04:34 Eos % (Auto) 0.7 % (0.0-4.3) 01/27/22 04:34 Baso % (Auto) 0.8 % (0.0-1.8) 01/27/22 04:34 Lymph # (Auto) 0.6 K/mm3 (1.2-5.4) L 01/27/22 04:34 [place] # (Auto) 0.7 K/mm3 (0.0-0.8) 01/27/22 04:34 Eos # (Auto) 0.0 K/mm3 (0.0-0.4) 01/27/22 04:34 Baso # (Auto) 0.0 K/mm3 (0.0-0.1) 01/27/22 04:34 Add Manual Diff Complete 01/25/22 17:57 Total Counted 100 01/25/22 17:57 Seg Neutrophils % 69.7 % (40.0-70.0) 01/27/22 04:34 Seg Neuts % (Manual) 59.0 % (40.0-70.0) 01/25/22 17:57 Band Neutrophils % 0 % 01/25/22 17:57 Lymphocytes % (Manual) 20.0 % (13.4-35.0) 01/25/22 17:57 Reactive Lymphs % (Man) 0 % 01/25/22 17:57 Monocytes % (Manual) 20.0 % (0.0-7.3) H 01/25/22 17:57 Eosinophils % (Manual) 1.0 % (0.0-4.3) 01/25/22 17:57 Basophils % (Manual) 0 % (0.0-1.8) 01/25/22 17:57 Metamyelocytes % 0 % 01/25/22 17:57 Myelocytes % 0 % 01/25/22 17:57 Promyelocytes % 0 % 01/25/22 17:57 Blast Cells % 0 % 01/25/22 17:57 Nucleated RBC % Not Reportable 01/25/22 17:57 Seg Neutrophils # 3.1 K/mm3 (1.8-7.7) 01/27/22 04:34 Seg Neutrophils # Man 2.3 K/mm3 (1.8-7.7) 01/25/22 17:57 Band Neutrophils # 0.0 K/mm3 01/25/22 17:57 Lymphocytes # (Manual) 0.8 K/mm3 (1.2-5.4) L 01/25/22 17:57 Abs React Lymphs (Man) 0.0 K/mm3 01/25/22 17:57 Monocytes # (Manual) 0.8 K/mm3 (0.0-0.8) 01/25/22 17:57 Eosinophils # (Manual) 0.0 K/mm3 (0.0-0.4) 01/25/22 17:57 Basophils # (Manual) 0.0 K/mm3 (0.0-0.1) 01/25/22 17:57 Metamyelocytes # 0.0 K/mm3 01/25/22 17:57 Myelocytes # 0.0 K/mm3 01/25/22 17:57 Promyelocytes # 0.0 K/mm3 01/25/22 17:57 Blast Cells # 0.0 K/mm3 01/25/22 17:57 WBC Morphology Not Reportable 01/25/22 17:57 Hypersegmented Neuts Not Reportable 01/25/22 17:57 Hyposegmented Neuts Not Reportable 01/25/22 17:57 Hypogranular Neuts Not Reportable 01/25/22 17:57 Smudge Cells Not Reportable 01/25/22 17:57 Toxic Granulation Not Reportable 01/25/22 17:57 Toxic Vacuolation Not Reportable 01/25/22 17:57 Dohle Bodies Not Reportable 01/25/22 17:57 Pelger-Huet Anomaly Not Reportable 01/25/22 17:57 Bruno Rods Not Reportable 01/25/22 17:57 Platelet Estimate Not Reportable 01/25/22 17:57 Clumped Platelets Not Reportable 01/25/22 17:57 Plt Clumps, EDTA Not Reportable 01/25/22 17:57 Large Platelets Not Reportable 01/25/22 17:57 Giant Platelets Not Reportable 01/25/22 17:57 Platelet Satelliting Not Reportable 01/25/22 17:57 Plt Morphology Comment Not Reportable 01/25/22 17:57 RBC Morphology Normal 01/25/22 17:57 Dimorphic RBCs Not Reportable 01/25/22 17:57 Polychromasia Not Reportable 01/25/22 17:57 Hypochromasia Not Reportable 01/25/22 17:57 Poikilocytosis Not Reportable 01/25/22 17:57 Anisocytosis Not Reportable 01/25/22 17:57 Microcytosis Not Reportable 01/25/22 17:57 Macrocytosis Not Reportable 01/25/22 17:57 Spherocytes Not Reportable 01/25/22 17:57 Pappenheimer Bodies Not Reportable 01/25/22 17:57 Sickle Cells Not Reportable 01/25/22 17:57 Target Cells Not Reportable 01/25/22 17:57 Tear Drop Cells Not Reportable 01/25/22 17:57 Ovalocytes Not Reportable 01/25/22 17:57 Helmet Cells Not Reportable 01/25/22 17:57 [place] Bodies Not Reportable 01/25/22 17:57 [place] Rings Not Reportable 01/25/22 17:57 [place] Cells Not Reportable 01/25/22 17:57 Bite Cells Not Reportable 01/25/22 17:57 Crenated Cell Not Reportable 01/25/22 17:57 Elliptocytes Not Reportable 01/25/22 17:57 Acanthocytes (Spur) Not Reportable 01/25/22 17:57 Rouleaux Not Reportable 01/25/22 17:57 Hemoglobin C Crystals Not Reportable 01/25/22 17:57 Schistocytes Not Reportable 01/25/22 17:57 Malaria parasites Not Reportable 01/25/22 17:57 Jayesh Bodies Not Reportable 01/25/22 17:57 Hem Pathologist Commnt No 01/25/22 17:57 PT 20.5 Sec. (12.2-14.9) H 01/28/22 04:25 INR 1.51 (0.87-1.13) H 01/28/22 04:25 Sodium 138 mmol/L (137-145) 01/27/22 04:34 Potassium 4.1 mmol/L (3.6-5.0) 01/27/22 04:34 Chloride 94.8 mmol/L (98-107) L 01/27/22 04:34 Carbon Dioxide 31 mmol/L (22-30) H 01/27/22 04:34 Anion Gap 16 mmol/L 01/27/22 04:34 BUN 22 mg/dL (9-20) H 01/27/22 04:34 Creatinine 1.0 mg/dL (0.8-1.3) 01/27/22 04:34 Estimated GFR > 60 ml/min 01/27/22 04:34 BUN/Creatinine Ratio 22 % 01/27/22 04:34 Glucose 85 mg/dL (75-100) 01/27/22 04:34 Calcium 9.1 mg/dL (8.4-10.2) 01/27/22 04:34 Total Bilirubin 1.30 mg/dL (0.1-1.2) H 01/25/22 17:57 AST 27 units/L (5-40) 01/25/22 17:57 ALT 15 units/L (7-56) 01/25/22 17:57 Alkaline Phosphatase 71 units/L (35-129) 01/25/22 17:57 Troponin T 0.074 ng/mL (0.00-0.029) H 01/25/22 23:43 NT-Pro-B Natriuret Pep 4367 pg/mL (0-900) H 01/25/22 23:43 Total Protein 7.3 g/dL (6.3-8.2) 01/25/22 17:57 Albumin 3.8 g/dL (3.9-5) L 01/25/22 17:57 Albumin/Globulin Ratio 1.1 % 01/25/22 17:57 Triglycerides 78 mg/dL (2-149) 01/25/22 17:57 Cholesterol 147 mg/dL (50-199) 01/25/22 17:57 LDL Cholesterol Direct 87 mg/dL (50-130) 01/25/22 17:57 HDL Cholesterol 49 mg/dL (40-59) 01/25/22 17:57 Cholesterol/HDL Ratio 3.00 % 01/25/22 17:57 Garvin/IV: Voiding Method Toilet Active Medications - Current Medications Current Medications: Generic Name Dose Route Start Last Admin Trade Name Freq PRN Reason Stop Dose Admin Acetaminophen 650 mg 01/26/22 02:16 Acetaminophen 325 Mg Tab PO Q4H PRN Pain MILD(1-3)/Fever >100.5/[place] Carvedilol 3.125 mg 01/26/22 13:00 01/28/22 09:09 Carvedilol 3.125 Mg Tab PO Not Given BID KELI Furosemide 40 mg 01/26/22 13:00 01/28/22 09:09 Furosemide 40 Mg Tab PO 40 mg QDAY KELI Administration Lisinopril 2.5 mg 01/27/22 10:00 01/28/22 09:09 Lisinopril 5 Mg Tab PO 2.5 mg QDAY KELI Administration Magnesium Hydroxide 30 ml 01/26/22 02:16 Magnesium Hydroxide (Mom) Oral Liqd Udc PO Q4H PRN Constipation Morphine Sulfate 2 mg 01/26/22 02:16 Morphine 2 Mg/1 Ml Inj IV Q4H PRN Pain, Moderate (4-6) Morphine Sulfate 4 mg 01/26/22 02:16 Morphine 4 Mg/1 Ml Inj IV Q4H PRN Pain , Severe (7-10) Ondansetron HCl 4 mg 01/26/22 02:16 Ondansetron 4 Mg/2 Ml Inj IV Q8H PRN Nausea And Vomiting Sodium Chloride 10 ml 01/26/22 10:00 01/28/22 09:10 Sodium Chloride 0.9% 10 Ml Flush Syringe IV 10 ml BID KELI Administration Sodium Chloride 10 ml 01/26/22 02:16 Sodium Chloride 0.9% 10 Ml Flush Syringe IV PRN PRN LINE FLUSH Spironolactone 25 mg 01/26/22 13:00 01/28/22 09:08 Spironolactone 25 Mg Tab PO 25 mg QDAY KELI Administration
--- NOTE | 2022-01-28 09:51 | Progress Note ---
Assessment and Plan 1. Chronic combined systolic and diastolic heart failure 2. Dilated nonischemic cardiomyopathy 3. Chronic atrial fibrillation with a controlled ventricular response 4. Syncope and collapse Plan. Patient is currently stable etiology of syncope and collapse was felt to be secondary to excessive diuresis. Medication has been adjusted. He is to follow-up with his continuous improvement black belt in the office in 10 days. Subjective Date of service: 01/28/22 Interval history: No cardiac symptoms Objective Vital Signs Temp Pulse Pulse Resp BP BP Pulse Ox 01/28/22 09:09 51 L 116/73 01/28/22 09:08 56 L 116/73 01/28/22 08:22 51 L 16 99 01/28/22 08:21 51 L 01/28/22 07:39 98.6 F 51 L 16 116/73 92 01/28/22 01:02 98.2 F 90 20 103/68 97 01/27/22 23:36 98 01/27/22 20:50 59 L 01/27/22 19:53 97.5 F L 50 L 18 101/72 98 01/27/22 16:00 98.5 F 59 L 18 99/67 96 01/27/22 12:30 97.3 F L 55 L 20 96 01/27/22 12:29 126/85 - Physical Examination General: Appears Well, No Apparent Distress HEENT: Positive: PERRL Neck: Positive: neck supple, trachea midline. Negative: JVD/HJR Cardiac: Positive: Regular Rate, S1/S2, PMI, Dilated, Laterally Displaced. Negative: S3, S4 Lungs: Positive: clear to auscultation, No Wheeze, Rales, Rhonchi Neuro: Positive: Grossly Intact Abdomen: Positive: Soft Skin: Positive: Clear Extremities: Absent: edema - Labs and Meds Coagulation 01/28/22 Range/Units 04:25 PT 20.5 H (12.2-14.9) Sec. INR 1.51 H (0.87-1.13)
[2022-01-28] MEDS: MAGNESIUM HYDROXIDE (MOM) ORAL LIQD UDC PO PRN (12:24)
[2022-01-28] MEDS ORDERED: WARFARIN 10 MG TAB PO SCH (17:00)
[2022-01-29 05:22] LABS: INR 1.71 (0.87-1.13)
[2022-01-29] MEDS: MAGNESIUM HYDROXIDE (MOM) ORAL LIQD UDC PO PRN ×2 (08:32→16:53)
--- NOTE | 2022-01-29 10:10 | Progress Note ---
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 Lasix 40 mg daily, lisinopril 2.5 mg daily, spironolactone 25 mg daily. Mother told his own has been discontinued. Cardiology consulted; appreciate recs Pending LifeVest. #Rate controlled atrial fibrillationstable Patient will continue warfarin 7.5 mg daily (INR goal 23) #Discharge planning - Patient is pending LifeVest - Case management has been made aware. - Discharge is tentatively 0-24 hours #Advanced care planning -Disease education conducted, care plan discussed, diagnoses discussed, prognosis discussed, and patient acknowledges understanding with care plan -Time: +30 min Disposition Plan: Pending LifeVest Total Time Spent with Patient (Minutes): 30 minutes History Interval history: No acute events over night. The patient denies fevers, chills, nausea, vomiting, abdominal pain, chest pain/pressure, shortness of breath, urinary symptoms, we akness, or confusion. Hospitalist Physical - Constitutional Vitals: Temp Pulse Resp BP Pulse Ox 98.0 F 53 L 18 117/75 93 01/29/22 07:58 01/29/22 07:59 01/29/22 07:58 01/29/22 07:58 01/29/22 07:59 General appearance: Present: no acute distress, well-nourished - EENT Eyes: Present: PERRL, EOM intact ENT: hearing intact, clear oral mucosa, dentition normal - Neck Neck: Present: supple, normal ROM - Respiratory Respiratory effort: normal Respiratory: bilateral: CTA - Cardiovascular Rhythm: regular Heart Sounds: Present: S1 & S2 - Extremities Extremities: no ischemia, pulses intact, pulses symmetrical, No edema, normal temperature, normal color, Full ROM Peripheral Pulses: within normal limits - Abdominal General gastrointestinal: soft, non-tender, non-distended, normal bowel sounds - Integumentary Integumentary: Present: clear, warm, dry - Psychiatric Psychiatric: appropriate mood/affect, intact judgment & insight, memory intact, cooperative - Neurologic Neurologic: CNII-XII intact, moves all extremities - Allied Health Allied health notes reviewed: nursing HEART Score - HEART Score Troponin: Troponin T 0.074 ng/mL (0.00-0.029) H 01/25/22 23:43 Results - Labs CBC & Chem 7: 01/27/22 04:34 01/27/22 04:34 Labs: Laboratory Last Values WBC 4.5 K/mm3 (4.5-11.0) 01/27/22 04:34 RBC 5.15 M/mm3 (3.65-5.03) H 01/27/22 04:34 Hgb 16.1 gm/dl (11.8-15.2) H 01/27/22 04:34 Hct 47.8 % (35.5-45.6) H 01/27/22 04:34 MCV 93 fl (84-94) 01/27/22 04:34 MCH 31 pg (28-32) 01/27/22 04:34 MCHC 34 % (32-34) 01/27/22 04:34 RDW 14.2 % (13.2-15.2) 01/27/22 04:34 Plt Count 149 K/mm3 (140-440) 01/27/22 04:34 Lymph % (Auto) 12.8 % (13.4-35.0) L 01/27/22 04:34 [place] % (Auto) 16.0 % (0.0-7.3) H 01/27/22 04:34 Eos % (Auto) 0.7 % (0.0-4.3) 01/27/22 04:34 Baso % (Auto) 0.8 % (0.0-1.8) 01/27/22 04:34 Lymph # (Auto) 0.6 K/mm3 (1.2-5.4) L 01/27/22 04:34 [place] # (Auto) 0.7 K/mm3 (0.0-0.8) 01/27/22 04:34 Eos # (Auto) 0.0 K/mm3 (0.0-0.4) 01/27/22 04:34 Baso # (Auto) 0.0 K/mm3 (0.0-0.1) 01/27/22 04:34 Add Manual Diff Complete 01/25/22 17:57 Total Counted 100 01/25/22 17:57 Seg Neutrophils % 69.7 % (40.0-70.0) 01/27/22 04:34 Seg Neuts % (Manual) 59.0 % (40.0-70.0) 01/25/22 17:57 Band Neutrophils % 0 % 01/25/22 17:57 Lymphocytes % (Manual) 20.0 % (13.4-35.0) 01/25/22 17:57 Reactive Lymphs % (Man) 0 % 01/25/22 17:57 Monocytes % (Manual) 20.0 % (0.0-7.3) H 01/25/22 17:57 Eosinophils % (Manual) 1.0 % (0.0-4.3) 01/25/22 17:57 Basophils % (Manual) 0 % (0.0-1.8) 01/25/22 17:57 Metamyelocytes % 0 % 01/25/22 17:57 Myelocytes % 0 % 01/25/22 17:57 Promyelocytes % 0 % 01/25/22 17:57 Blast Cells % 0 % 01/25/22 17:57 Nucleated RBC % Not Reportable 01/25/22 17:57 Seg Neutrophils # 3.1 K/mm3 (1.8-7.7) 01/27/22 04:34 Seg Neutrophils # Man 2.3 K/mm3 (1.8-7.7) 01/25/22 17:57 Band Neutrophils # 0.0 K/mm3 01/25/22 17:57 Lymphocytes # (Manual) 0.8 K/mm3 (1.2-5.4) L 01/25/22 17:57 Abs React Lymphs (Man) 0.0 K/mm3 01/25/22 17:57 Monocytes # (Manual) 0.8 K/mm3 (0.0-0.8) 01/25/22 17:57 Eosinophils # (Manual) 0.0 K/mm3 (0.0-0.4) 01/25/22 17:57 Basophils # (Manual) 0.0 K/mm3 (0.0-0.1) 01/25/22 17:57 Metamyelocytes # 0.0 K/mm3 01/25/22 17:57 Myelocytes # 0.0 K/mm3 01/25/22 17:57 Promyelocytes # 0.0 K/mm3 01/25/22 17:57 Blast Cells # 0.0 K/mm3 01/25/22 17:57 WBC Morphology Not Reportable 01/25/22 17:57 Hypersegmented Neuts Not Reportable 01/25/22 17:57 Hyposegmented Neuts Not Reportable 01/25/22 17:57 Hypogranular Neuts Not Reportable 01/25/22 17:57 Smudge Cells Not Reportable 01/25/22 17:57 Toxic Granulation Not Reportable 01/25/22 17:57 Toxic Vacuolation Not Reportable 01/25/22 17:57 Dohle Bodies Not Reportable 01/25/22 17:57 Pelger-Huet Anomaly Not Reportable 01/25/22 17:57 Bruno Rods Not Reportable 01/25/22 17:57 Platelet Estimate Not Reportable 01/25/22 17:57 Clumped Platelets Not Reportable 01/25/22 17:57 Plt Clumps, EDTA Not Reportable 01/25/22 17:57 Large Platelets Not Reportable 01/25/22 17:57 Giant Platelets Not Reportable 01/25/22 17:57 Platelet Satelliting Not Reportable 01/25/22 17:57 Plt Morphology Comment Not Reportable 01/25/22 17:57 RBC Morphology Normal 01/25/22 17:57 Dimorphic RBCs Not Reportable 01/25/22 17:57 Polychromasia Not Reportable 01/25/22 17:57 Hypochromasia Not Reportable 01/25/22 17:57 Poikilocytosis Not Reportable 01/25/22 17:57 Anisocytosis Not Reportable 01/25/22 17:57 Microcytosis Not Reportable 01/25/22 17:57 Macrocytosis Not Reportable 01/25/22 17:57 Spherocytes Not Reportable 01/25/22 17:57 Pappenheimer Bodies Not Reportable 01/25/22 17:57 Sickle Cells Not Reportable 01/25/22 17:57 Target Cells Not Reportable 01/25/22 17:57 Tear Drop Cells Not Reportable 01/25/22 17:57 Ovalocytes Not Reportable 01/25/22 17:57 Helmet Cells Not Reportable 01/25/22 17:57 [place]-Twain Bodies Not Reportable 01/25/22 17:57 [place] Rings Not Reportable 01/25/22 17:57 Nori Cells Not Reportable 01/25/22 17:57 Bite Cells Not Reportable 01/25/22 17:57 Crenated Cell Not Reportable 01/25/22 17:57 Elliptocytes Not Reportable 01/25/22 17:57 Acanthocytes (Spur) Not Reportable 01/25/22 17:57 Rouleaux Not Reportable 01/25/22 17:57 Hemoglobin C Crystals Not Reportable 01/25/22 17:57 Schistocytes Not Reportable 01/25/22 17:57 Malaria parasites Not Reportable 01/25/22 17:57 Jayesh Bodies Not Reportable 01/25/22 17:57 Hem Pathologist Commnt No 01/25/22 17:57 PT 22.7 Sec. (12.2-14.9) H 01/29/22 04:48 INR 1.71 (0.87-1.13) H 01/29/22 04:48 Sodium 138 mmol/L (137-145) 01/27/22 04:34 Potassium 4.1 mmol/L (3.6-5.0) 01/27/22 04:34 Chloride 94.8 mmol/L (98-107) L 01/27/22 04:34 Carbon Dioxide 31 mmol/L (22-30) H 01/27/22 04:34 Anion Gap 16 mmol/L 01/27/22 04:34 BUN 22 mg/dL (9-20) H 01/27/22 04:34 Creatinine 1.0 mg/dL (0.8-1.3) 01/27/22 04:34 Estimated GFR > 60 ml/min 01/27/22 04:34 BUN/Creatinine Ratio 22 % 01/27/22 04:34 Glucose 85 mg/dL (75-100) 01/27/22 04:34 Calcium 9.1 mg/dL (8.4-10.2) 01/27/22 04:34 Total Bilirubin 1.30 mg/dL (0.1-1.2) H 01/25/22 17:57 AST 27 units/L (5-40) 01/25/22 17:57 ALT 15 units/L (7-56) 01/25/22 17:57 Alkaline Phosphatase 71 units/L (35-129) 01/25/22 17:57 Troponin T 0.074 ng/mL (0.00-0.029) H 01/25/22 23:43 NT-Pro-B Natriuret Pep 4367 pg/mL (0-900) H 01/25/22 23:43 Total Protein 7.3 g/dL (6.3-8.2) 01/25/22 17:57 Albumin 3.8 g/dL (3.9-5) L 01/25/22 17:57 Albumin/Globulin Ratio 1.1 % 01/25/22 17:57 Triglycerides 78 mg/dL (2-149) 01/25/22 17:57 Cholesterol 147 mg/dL (50-199) 01/25/22 17:57 LDL Cholesterol Direct 87 mg/dL (50-130) 01/25/22 17:57 HDL Cholesterol 49 mg/dL (40-59) 01/25/22 17:57 Cholesterol/HDL Ratio 3.00 % 01/25/22 17:57 [place]/IV: Voiding Method Condom Catheter Active Medications - Current Medications Current Medications: Generic Name Dose Route Start Last Admin Trade Name Freq PRN Reason Stop Dose Admin Acetaminophen 650 mg 01/26/22 02:16 Acetaminophen 325 Mg Tab PO Q4H PRN Pain MILD(1-3)/Fever >100.5/[place] Carvedilol 3.125 mg 01/26/22 13:00 01/28/22 21:21 Carvedilol 3.125 Mg Tab PO Not Given BID KELI Furosemide 40 mg 01/26/22 13:00 01/28/22 09:09 Furosemide 40 Mg Tab PO 40 mg QDAY KELI Administration Lisinopril 2.5 mg 01/27/22 10:00 01/28/22 09:09 Lisinopril 5 Mg Tab PO 2.5 mg QDAY KELI Administration Magnesium Hydroxide 30 ml 01/26/22 02:16 01/29/22 08:32 Magnesium Hydroxide (Mom) Oral Liqd Udc PO 30 ml Q4H PRN Administration Constipation Morphine Sulfate 2 mg 01/26/22 02:16 Morphine 2 Mg/1 Ml Inj IV Q4H PRN Pain, Moderate (4-6) Morphine Sulfate 4 mg 01/26/22 02:16 Morphine 4 Mg/1 Ml Inj IV Q4H PRN Pain , Severe (7-10) Ondansetron HCl 4 mg 01/26/22 02:16 Ondansetron 4 Mg/2 Ml Inj IV Q8H PRN Nausea And Vomiting Sodium Chloride 10 ml 01/26/22 10:00 01/28/22 21:22 Sodium Chloride 0.9% 10 Ml Flush Syringe IV 10 ml BID KELI Administration Sodium Chloride 10 ml 01/26/22 02:16 Sodium Chloride 0.9% 10 Ml Flush Syringe IV PRN PRN LINE FLUSH Spironolactone 25 mg 01/26/22 13:00 01/28/22 09:08 Spironolactone 25 Mg Tab PO 25 mg QDAY KELI Administration Warfarin Sodium 5 mg 01/29/22 17:00 Warfarin 5 Mg Tab PO 01/30/22 16:59 DAILY@1700 NR
[2022-01-29] MEDS: FUROSEMIDE 40 MG TAB PO SCH (10:12)
[2022-01-29] MEDS: LISINOPRIL 5 MG TAB PO SCH (10:12)
[2022-01-29] MEDS: SPIRONOLACTONE 25 MG TAB PO SCH (10:13)
[2022-01-29] MEDS: carvediloL 3.125 MG TAB PO SCH (10:14)
--- NOTE | 2022-01-29 12:33 | Progress Note ---
Assessment and Plan - Patient Problems (1) Syncope Current Visit: Yes Status: Acute Plan to address problem: Syncope determined likely due to hypovolemia. Due to underlying severe cardiomyopathy, we have recommended LifeVest monitoring on discharge. He is awaiting LifeVest fitting prior to anticipated discharge today. (2) Chronic systolic heart failure Current Visit: Yes Status: Acute Plan to address problem: Patient has acute on chronic systolic heart failure which is resolving with outpatient medical therapy as outlined above. Subjective Date of service: 01/29/22 Principal diagnosis: Systolic heart failure, chronic atrial fibrillation Interval history: Patient is comfortable, no acute distress. His edema has completely resolved. He is still awaiting fitting of recommended LifeVest. Objective Vital Signs Temp Pulse Resp BP BP Pulse Ox 01/29/22 11:47 54 L 98 01/29/22 11:08 96 01/29/22 11:00 98.2 F 64 123/75 01/29/22 07:59 53 L 93 01/29/22 07:58 98.0 F 18 117/75 01/29/22 05:18 98.7 F 54 L 16 114/69 100 01/29/22 05:00 16 100 01/29/22 03:00 56 L 01/29/22 00:25 99.4 F 52 L 16 95/61 100 01/28/22 21:21 56 L 94/57 01/28/22 20:27 99.3 F 56 L 16 94/57 99 01/28/22 16:16 100 H - Physical Examination General: Appears Well, No Apparent Distress HEENT: Positive: PERRL Neck: Positive: neck supple, trachea midline. Negative: JVD/HJR Cardiac: Positive: Irregularly Regular Lungs: Positive: clear to auscultation Neuro: Positive: Grossly Intact Abdomen: Positive: Soft Skin: Positive: Clear Extremities: Absent: edema - Labs and Meds Coagulation 01/29/22 Range/Units 04:48 PT 22.7 H (12.2-14.9) Sec. INR 1.71 H (0.87-1.13)
[2022-01-29] MEDS ORDERED: WARFARIN 5 MG TAB PO NR (17:00)
[2022-01-29 18:14] VITALS: BP 137/46
== END 2022-01-29 19:05 | disposition home or self-care (01) | DRG 641 ==
LOC: ED 16:54 → 4A 01-26 02:17
PROVIDERS: ADMIT Internal Medicine Geriatric Medicine; ATTEND Student in an Organized Health Care Education/Training Program
DX: E86.1 Hypovolemia (principal); I50.42 Chronic combined systolic (congestive) and diastolic (congestive) heart failure; I42.0 Dilated cardiomyopathy; I48.20 Chronic atrial fibrillation, unspecified; R77.8 Other specified abnormalities of plasma proteins; Z79.82 Long term (current) use of aspirin; Z79.899 Other long term (current) drug therapy; Z79.01 Long term (current) use of anticoagulants
CPT/HCPCS: 36415; 70450; 71046; 80048; 80053; 80061; 83880; 84484; 85007; 85025; 85610; 93005; 93880; G0378; J7030

== ENCOUNTER 2022-01-30 00:13 | Emergency (ER) | payer MEDICARE ==
--- NOTE | 2022-01-30 00:28 | Event Note ---
Date: 01/30/22 Medical screening examination note: 81-year-old gentleman brought to the hospital by EMS with an EMS articulated complaint of painless loss of consciousness. Patient currently awake, alert, breathing spontaneously, protecting airway and in no acute distress. Obtain EKG, appropriate laboratory studies, place patient on court recording monitor, detailed history and physical to be performed.
[2022-01-30 01:12] LABS: Hematocrit 45.7 % (35.5-45.6); Hemoglobin 15.4 gm/dl (11.8-15.2); Mean Corpuscular HGB Conc 34 % (32-34); Mean Corpuscular Volume 91 fl (84-94); Platelet Count 131 K/mm3 (140-440)
--- NOTE | 2022-01-30 01:22 | XRay Report ---
CHEST 1 VIEW 01/30/2022 12:03 AM INDICATION / CLINICAL INFORMATION: Syncope. COMPARISON: 01/25/2022 FINDINGS: SUPPORT DEVICES: External monitor device. HEART / MEDIASTINUM: Unchanged cardiomegaly LUNGS / PLEURA: No significant pulmonary or pleural abnormality. No pneumothorax. ADDITIONAL FINDINGS: No significant additional findings. IMPRESSION: 1. No acute findings. Signer Name: Emre Toro DO Signed: 01/30/2022 1:18 AM Workstation Name: [id number]
[2022-01-30 01:34] LABS: Alanine Aminotransferase 27 units/L (7-56); Albumin 3.5 g/dL (3.9-5); BUN/Creatinine Ratio 30; Blood Urea Nitrogen 30 mg/dL (9-20); Calcium 9.6 mg/dL (8.4-10.2); Hemolysis Index 39
[2022-01-30 01:37] LABS: INR 1.87 (0.87-1.13)
[2022-01-30] MEDS ORDERED: SODIUM CHLORIDE 0.9% 250ML 250 ML IV ONE (01:58)
--- NOTE | 2022-01-30 01:58 | Emergency Department Report ---
ED General Adult HPI - General Chief complaint: Syncope Stated complaint: SYNCOPE PUI?: No Time Seen by Provider: 01/30/22 01:34 Source: patient, EMS ( EMS documentation not available at time of chart dictation ), RN notes reviewed, old records reviewed Mode of arrival: Wheelchair Limitations: No Limitations - History of Present Illness Initial comments: The patient was evaluated in the emergency department for symptoms described in the history of present illness. He/she was evaluated in the context of the global COVID-19 pandemic, which necessitated consideration that the patient might be at risk for infection with the virus that causes COVID-19. Institutional protocols and algorithms that pertain to the evaluation of patients at risk for COVID-19 are in a state of rapid change based on information released by regulatory bodies including the CDC and federal and state organizations. These policies and algorithms were followed during the patient's care in the emergency department. Please note that these policies, procedures and recommendations changed on a rapid basis. Patient is a pleasant and cooperative 81-year-old gentleman, who presents to the department today with a complaint of losing consciousness while defecating. It happened earlier on yesterday, and was not associate with physical pain. Prior to the event, the patient reports that he is in his usual state of health. He denies headache, neck pain, chest pain, abdominal pain, new/different shortness of breath, urinary symptoms, hematemesis and bright red blood per rectum. Of note, this patient was recently admitted to the medical service for evaluation of syncope. Has past medical history includes A. fib on Eliquis, longstanding dilated nonischemic cardiomyopathy, and was felt to be over diuresed. He had a carotid duplex which was essentially unremarkable, he is discharged with a LifeVest which he continues to remain compliant with. He was recently seen by [facility], who he also follows up with, his metaxalone is discontinued, and lisinopril dose is reduced. The patient has just been in the ER for hours at this point time, without recurrent episodes of loss of consciousness. He reports that he feels a little bit chilly, but otherwise denies complaints. He lives at home with his , who called 911. -: Sudden Consistency: now resolved Improves with: none Worsens with: other (Defecation) - Related Data Home Medications Medication Instructions Recorded Confirmed Last Taken Aspirin BABY CHEW TAB 81 mg PO DAILY 01/26/22 01/26/22 01/25/22 10:00 AtorvaSTATin 10 mg PO DAILY 01/26/22 01/26/22 01/25/22 10:00 Coreg 3.125 mg PO BID 01/26/22 01/26/22 01/25/22 16:00 Furosemide [Lasix] 40 mg PO DAILY 01/26/22 01/26/22 01/25/22 10:00 Lisinopril [Zestril TAB] 2.5 mg PO QDAY 01/26/22 01/26/22 01/25/22 10:00 Spironolactone [Aldactone] 25 mg PO QDAY 01/26/22 01/26/22 01/25/22 Warfarin [Coumadin] 4 mg PO DAILY 01/26/22 01/26/22 01/25/22 16:00 Allergies Allergy/AdvReac Type Severity Reaction Status Date / Time No Known Allergies Allergy Verified 01/25/22 17:25 ED Review of Systems ROS: Stated complaint: SYNCOPE Other details as noted in HPI Constitutional: denies: fever Eyes: denies: eye discharge ENT: denies: epistaxis Respiratory: denies: wheezing Cardiovascular: syncope. denies: chest pain Gastrointestinal: denies: abdominal pain, hematemesis, melena, hematochezia Genitourinary: denies: dysuria Neurological: denies: weakness Hematological/Lymphatic: denies: easy bleeding ED Past Medical Hx - Social History Smoking Status: Never Smoker Substance Use Type: None - Medications Home Medications: Home Medications Medication Instructions Recorded Confirmed Last Taken Type Aspirin BABY CHEW TAB 81 mg PO DAILY 01/26/22 01/26/22 01/25/22 10:00 History AtorvaSTATin 10 mg PO DAILY 01/26/22 01/26/22 01/25/22 10:00 History Coreg 3.125 mg PO BID 01/26/22 01/26/22 01/25/22 16:00 History Furosemide [Lasix] 40 mg PO DAILY 01/26/22 01/26/22 01/25/22 10:00 History Lisinopril [Zestril TAB] 2.5 mg PO QDAY 01/26/22 01/26/22 01/25/22 10:00 History Spironolactone [Aldactone] 25 mg PO QDAY 01/26/22 01/26/22 01/25/22 History Warfarin [Coumadin] 4 mg PO DAILY 01/26/22 01/26/22 01/25/22 16:00 History ED Physical Exam - General Limitations: No Limitations General appearance: alert, in no apparent distress - Head Head exam: Present: atraumatic, normocephalic - Eye Eye exam: Present: normal appearance, EOMI. Absent: nystagmus - ENT ENT exam: Present: normal exam, normal orophraynx, mucous membranes moist, normal external ear exam - Neck Neck exam: Present: normal inspection, full ROM. Absent: tenderness, meningismus - Respiratory Respiratory exam: Present: normal lung sounds bilaterally. Absent: respiratory distress, wheezes, rales, rhonchi, stridor, decreased breath sounds - Cardiovascular Cardiovascular Exam: Present: bradycardia, irregular rhythm, normal heart sounds. Absent: systolic murmur, diastolic murmur, rubs, gallop - GI/Abdominal GI/Abdominal exam: Present: soft, normal bowel sounds. Absent: distended, tenderness, guarding, rigid - Rectal Rectal exam: Present: normal inspection, heme (-) stool, other (Patient provides verbal consent for rectal examination. Chaperoned by Derian Kilgore). Absent: black stool, bloody stool, fecal impaction, hemorrhoids, mass - Extremities Exam Extremities exam: Present: normal inspection, full ROM, other (2+ pulses noted in the bilateral upper and lower extremities. There is no palpable cord. negative Homans sign. Muscular compartments are soft. The pelvis is stable.). Absent: calf tenderness - Back Exam Back exam: Present: normal inspection. Absent: tenderness, CVA tenderness (R), CVA tenderness (L), paraspinal tenderness, vertebral tenderness - Neurological Exam Neurological exam: Present: alert, oriented X3, other (There is no facial droop. The tongue is midline. EOMI. Sensation is intact to light touch. 5 out of 5 strength in 4 extremities). Absent: motor sensory deficit - Psychiatric Psychiatric exam: Present: flat affect - Skin Skin exam: Present: warm, dry, intact, normal color. Absent: rash ED Course Vital Signs 01/30/22 01/30/22 01/30/22 00:49 00:54 01:00 Temperature Pulse Rate 59 L 60 Respiratory 14 15 15 Rate Blood Pressure 105/66 105/66 Blood Pressure [Right] O2 Sat by Pulse 100 Oximetry 01/30/22 01/30/22 01/30/22 01:16 01:30 01:34 Temperature Pulse Rate 60 57 L Respiratory 16 16 Rate Blood Pressure 101/58 77/58 Blood Pressure 109/69 [Right] O2 Sat by Pulse 99 100 Oximetry 01/30/22 01/30/22 01/30/22 01:46 02:00 02:04 Temperature Pulse Rate 57 L 73 Respiratory 15 13 Rate Blood Pressure 109/69 106/71 Blood Pressure 111/81 [Right] O2 Sat by Pulse 99 86 Oximetry 01/30/22 01/30/22 01/30/22 02:07 02:16 02:30 Temperature 98.7 F Pulse Rate 56 L 62 65 Respiratory 14 11 L 13 Rate Blood Pressure 111/81 107/74 Blood Pressure 111/81 [Right] O2 Sat by Pulse 100 100 100 Oximetry 01/30/22 01/30/22 01/30/22 02:46 03:00 03:05 Temperature Pulse Rate 65 59 L Respiratory 14 15 Rate Blood Pressure 103/66 88/55 Blood Pressure 100/66 [Right] O2 Sat by Pulse 100 99 Oximetry 01/30/22 01/30/22 03:16 03:30 Temperature Pulse Rate 60 63 Respiratory 13 15 Rate Blood Pressure 100/64 100/63 Blood Pressure [Right] O2 Sat by Pulse 99 100 Oximetry - Reevaluation(s) Reevaluation #1: 01/30/22 02:27 Differential diagnosis, including not limited to: Orthostasis, vagal event, electrolyte derangement, type II troponin leak Assessment and plan: 81-year-old gentleman, with complex past medical history, just evaluated at this hospital and discharged yesterday for syncope, felt to be secondary to overzealous diuresis, medications adjusted appropriately by his cardiology team, observed in the hospital for days without documentation of recurrent episode of syncope or loss of consciousness, who presents to the department today with an episode of loss of consciousness after defecating. This is very suspicious for vagal event. His physical exam is benign and unremarkable. He has no blood on rectal examination. He did not hit his head and he denies a headache. He has a chronically elevated troponin, and I suspect that his troponin leak today is a type II troponin leak. I did contact covering cardiology, Dr. Nguyen, and I discussed the patient's history, physical, laboratory studies and clinical impression. He is in agreement that this is likely a type II troponin leak, and does not require further diagnostic investigation or evaluation. Patient is observed in this department for hours without clinical decompensation, or recurrent episode of loss of consciousness. He continues to wear his LifeVest. It appears that he may be discharged to follow-up with his outpatient brand executive Return precautions are reviewed. All questions answered. Guaiac negative on rectal examination 01/30/22 03:39 Sleeping comfortably in stretcher. No acute distress. Blood pressure 100/64. Unchanged rhythm on monitor. No recurrent loss of consciousness. Reevaluation #2: 01/30/22 04:03 Patient observed in this department for approximately 4 hours. No episodes of loss of consciousness. Continues to sleep comfortably. He does have a componen t of low blood pressure, but this appears to be chronic when compared to his prior values. He is also sleeping at this time, and is quite diminutive. I believe he is reasonable and suitable to follow-up with his outpatient primary care brand executive for further outpatient evaluation management. I suspect that this patient had a vagal event when defecating. ED Medical Decision Making - Lab Data Result diagrams: 01/30/22 00:34 01/30/22 00:34 Vital Signs 01/30/22 01/30/22 01/30/22 00:49 00:54 01:00 Temperature Pulse Rate 59 L 60 Respiratory 14 15 15 Rate Blood Pressure 105/66 105/66 Blood Pressure [Right] O2 Sat by Pulse 100 Oximetry 01/30/22 01/30/22 01/30/22 01:16 01:30 01:34 Temperature Pulse Rate 60 57 L Respiratory 16 16 Rate Blood Pressure 101/58 77/58 Blood Pressure 109/69 [Right] O2 Sat by Pulse 99 100 Oximetry 01/30/22 01/30/22 01/30/22 01:46 02:00 02:04 Temperature Pulse Rate 57 L 73 Respiratory 15 13 Rate Blood Pressure 109/69 106/71 Blood Pressure 111/81 [Right] O2 Sat by Pulse 99 86 Oximetry 01/30/22 02:07 Temperature 98.7 F Pulse Rate 56 L Respiratory 14 Rate Blood Pressure Blood Pressure 111/81 [Right] O2 Sat by Pulse 100 Oximetry Lab Results 01/30/22 01/30/2201/30/22 Range/Units 00:34 00:34 00:34 WBC 4.5 (4.5-11.0) K/mm3 RBC 5.00 (3.65-5.03) M/mm3 Hgb 15.4 H (11.8-15.2) gm/dl Hct 45.7 H (35.5-45.6) % MCV 91 (84-94) fl MCH 31 (28-32) pg MCHC 34 (32-34) % RDW 14.0 (13.2-15.2) % Plt Count 131 L (140-440) K/mm3 [place] % (Auto) Yeast Culture Operator Add Manual Diff Complete Total Counted 100 Seg Neuts % (Manual) 62.0 (40.0-70.0) % Band Neutrophils % 0 % Lymphocytes % (Manual) 13.0 L (13.4-35.0) % Reactive Lymphs % (Man) 0 % Monocytes % (Manual) 24.0 H (0.0-7.3) % Eosinophils % (Manual) 1.0 (0.0-4.3) % Basophils % (Manual) 0 (0.0-1.8) % Metamyelocytes % 0 % Myelocytes % 0 % Promyelocytes % 0 % Blast Cells % 0 % Nucleated RBC % Not Reportable Seg Neutrophils # Man 2.8 (1.8-7.7) K/mm3 Band Neutrophils # 0.0 K/mm3 Lymphocytes # (Manual) 0.6 L (1.2-5.4) K/mm3 Abs React Lymphs (Man) 0.0 K/mm3 Monocytes # (Manual) 1.1 H (0.0-0.8) K/mm3 Eosinophils # (Manual) 0.0 (0.0-0.4) K/mm3 Basophils # (Manual) 0.0 (0.0-0.1) K/mm3 Metamyelocytes # 0.0 K/mm3 Myelocytes # 0.0 K/mm3 Promyelocytes # 0.0 K/mm3 Blast Cells # 0.0 K/mm3 WBC Morphology Not Reportable Hypersegmented Neuts Not Reportable Hyposegmented Neuts Not Reportable Hypogranular Neuts Not Reportable Smudge Cells Not Reportable Toxic Granulation Not Reportable Toxic Vacuolation Not Reportable Dohle Bodies Not Reportable Pelger-Huet Anomaly Not Reportable Bruno Rods Not Reportable Platelet Estimate Not Reportable Clumped Platelets Not Reportable Plt Clumps, EDTA Not Reportable Large Platelets Not Reportable Giant Platelets Not Reportable Platelet Satelliting Not Reportable Plt Morphology Comment Not Reportable RBC Morphology Normal Dimorphic RBCs Not Reportable Polychromasia Not Reportable Hypochromasia Not Reportable Poikilocytosis Not Reportable Anisocytosis Not Reportable Microcytosis Not Reportable Macrocytosis Not Reportable Spherocytes Not Reportable Pappenheimer Bodies Not Reportable Sickle Cells Not Reportable Target Cells Not Reportable Tear Drop Cells Not Reportable Ovalocytes Not Reportable Helmet Cells Not Reportable [place] Bodies Not Reportable [place] Rings Not Reportable Leon Cells Not Reportable Bite Cells Not Reportable Crenated Cell Not Reportable Elliptocytes Not Reportable Acanthocytes (Spur) Not Reportable Rouleaux Not Reportable Hemoglobin C Crystals Not Reportable Schistocytes Not Reportable Malaria parasites Not Reportable Jayesh Bodies Not Reportable Hem Pathologist Commnt No PT 24.4 H (12.2-14.9) Sec. INR 1.87 H (0.87-1.13) Sodium 136 L (137-145) mmol/L Potassium 3.9 (3.6-5.0) mmol/L Chloride 92.8 L (98-107) mmol/L Carbon Dioxide 30 (22-30) mmol/L Anion Gap 17 mmol/L BUN 30 H (9-20) mg/dL Creatinine 1.0 (0.8-1.3) mg/dL Estimated GFR > 60 ml/min BUN/Creatinine Ratio 30 % Glucose 113 H (75-100) mg/dL Calcium 9.6 (8.4-10.2) mg/dL Magnesium 1.90 (1.7-2.3) mg/dL Total Bilirubin 1.10 (0.1-1.2) mg/dL AST 44 H (5-40) units/L ALT 27 (7-56) units/L Alkaline Phosphatase 63 (35-129) units/L Troponin T 0.152 H* D (0.00-0.029) ng/mL NT-Pro-B Natriuret Pep (0-900) pg/mL Total Protein 7.2 (6.3-8.2) g/dL Albumin 3.5 L (3.9-5) g/dL Albumin/Globulin Ratio 0.9 % 01/30/22 Range/Units 00:34 WBC (4.5-11.0) K/mm3 RBC (3.65-5.03) M/mm3 Hgb (11.8-15.2) gm/dl Hct (35.5-45.6) % MCV (84-94) fl MCH (28-32) pg MCHC (32-34) % RDW (13.2-15.2) % Plt Count (140-440) K/mm3 [place] % (Auto) Add Manual Diff Total Counted Seg Neuts % (Manual) (40.0-70.0) % Band Neutrophils % % Lymphocytes % (Manual) (13.4-35.0) % Reactive Lymphs % (Man) % Monocytes % (Manual) (0.0-7.3) % Eosinophils % (Manual) (0.0-4.3) % Basophils % (Manual) (0.0-1.8) % Metamyelocytes % % Myelocytes % % Promyelocytes % % Blast Cells % % Nucleated RBC % Seg Neutrophils # Man (1.8-7.7) K/mm3 Band Neutrophils # K/mm3 Lymphocytes # (Manual) (1.2-5.4) K/mm3 Abs React Lymphs (Man) K/mm3 Monocytes # (Manual) (0.0-0.8) K/mm3 Eosinophils # (Manual) (0.0-0.4) K/mm3 Basophils # (Manual) (0.0-0.1) K/mm3 Metamyelocytes # K/mm3 Myelocytes # K/mm3 Promyelocytes # K/mm3 Blast Cells # K/mm3 WBC Morphology Hypersegmented Neuts Hyposegmented Neuts Hypogranular Neuts Smudge Cells Toxic Granulation Toxic Vacuolation Dohle Bodies Pelger-Huet Anomaly Bruno Rods Platelet Estimate Clumped Platelets Plt Clumps, EDTA Large Platelets Giant Platelets Platelet Satelliting Plt Morphology Comment RBC Morphology Dimorphic RBCs Polychromasia Hypochromasia Poikilocytosis Anisocytosis Microcytosis Macrocytosis Spherocytes Pappenheimer Bodies Sickle Cells Target Cells Tear Drop Cells Ovalocytes Helmet Cells [place] Bodies [place] Rings Leon Cells Bite Cells Crenated Cell Elliptocytes Acanthocytes (Spur) Rouleaux Hemoglobin C Crystals Schistocytes Malaria parasites Jayesh Bodies Hem Pathologist Commnt PT (12.2-14.9) Sec. INR (0.87-1.13) Sodium (137-145) mmol/L Potassium (3.6-5.0) mmol/L Chloride (98-107) mmol/L Carbon Dioxide (22-30) mmol/L Anion Gap mmol/L BUN (9-20) mg/dL Creatinine (0.8-1.3) mg/dL Estimated GFR ml/min BUN/Creatinine Ratio % Glucose (75-100) mg/dL Calcium (8.4-10.2) mg/dL Magnesium (1.7-2.3) mg/dL Total Bilirubin (0.1-1.2) mg/dL AST (5-40) units/L ALT (7-56) units/L Alkaline Phosphatase (35-129) units/L Troponin T (0.00-0.029) ng/mL NT-Pro-B Natriuret Pep 7948 H (0-900) pg/mL Total Protein (6.3-8.2) g/dL Albumin (3.9-5) g/dL Albumin/Globulin Ratio % - EKG Data -: EKG Interpreted by Az Rate: normal - EKG Data 01/30/22 02:24 The EKG today is interpreted at 01: 44 the EKG today appears to be unchanged from prior EKG from January 2022 This is A. fib/flutter with variable conduction. There is a borderline leftward axis deviation. There are PVCs. There is low voltage. The QTC is 4 1 9 ms. This is an abnormal EKG. This is not a STEMI. - Radiology Data Radiology results: pending, report reviewed, image reviewed CHEST 1 VIEW 01/30/2022 12:03 AM INDICATION / CLINICAL INFORMATION: Syncope. COMPARISON: 01/25/2022 FINDINGS: SUPPORT DEVICES: External monitor device. HEART / MEDIASTINUM: Unchanged cardiomegaly LUNGS / PLEURA: No significant pulmonary or pleural abnormality. No pneumothorax. ADDITIONAL FINDINGS: No significant additional findings. IMPRESSION: 1. No acute findings. Signer Name: Emre Toro DO Signed: 01/30/2022 12:18 AM Workstation Name: [id number] Critical care attestation.: If time is entered above; I have spent that time in minutes in the direct care of this critically ill patient, excluding procedure time. ED Disposition Clinical Impression: Syncope Disposition: 01 HOME / SELF CARE / HOMELESS Is pt being admited?: No Does the pt Need Aspirin: No Condition: Good Instructions: Syncope, Syncope (ED) Additional Instructions: Do not drive or operate motor vehicles for the next 6 months. Please follow-up with your outpatient brand executive within the next week. Please avoid consumption of alcohol, tobacco and smoke products. Participate in physical activities as tolerated. Continue current outpatient medications as recently prescribed. Suspect that patient had temporary decrease in consciousness, likely secondary to defecation which can sometimes happen. Please return to the emergency room right away with new pain, worsened pain, migration of pain, projectile vomiting, change in mental status, confusion, inability tolerate liquid feeds, new, worsened or different symptoms not present on the initial emergency room evaluation Referrals: CASSY BROOKS MD [Staff Physician] - 3-5 Days
[2022-01-30 02:09] LABS: Basophils % (Manual) 0 % (0.0-1.8); RBC Morphology Normal; Total Cells Counted 100
[2022-01-30 03:36] VITALS: BP 100/63
--- NOTE | 2022-01-30 12:21 | Electrocardiograph Report ---
[facility] Test Date: 2022-01-30 Test Time: 01:44:34 Pat Name: GINA STYLES Department: Room: Gender: M Nurse Discharge: KIRSTEN : 1940 Requested By: BERNA SHERMAN Order Number: [id number] Reading MD: Daniel Rodriguez Measurements Intervals [place] Rate: 52 P: 0 MN: 204 QRS: -46 QRSD: 83 T: 121 QT: 450 QTc: 419 Interpretive Statements Atrial fibrillation with controlled VR. Atrial premature complexes Left anterior fascicular block Anteroseptal infarct, age indeterminate Compared to ECG 01/25/2022 18:07:00 probably no significant change noted. Aberrant conduction of supraventricular beat(s) no longer present Electronically Signed On 01-30-2022 12:21:01 EDT by Daniel Rodriguez
== END 2022-01-30 04:30 | disposition home or self-care (01) ==
LOC: ED 00:13
DX: R55 Syncope and collapse (principal)
CPT/HCPCS: 36415; 71045; 80053; 82270; 83735; 83880; 84484; 85007; 85025; 85610; 93005; 99284; J7050

== ENCOUNTER 2022-04-06 15:32 | Inpatient (IN) | payer MEDICARE ==
[2022-04-06] MEDS ORDERED: SODIUM CHLORIDE 0.9% 1000 ML 1,000 ML IV ONE (17:27)
--- NOTE | 2022-04-06 18:05 | History and Physical Report ---
History of Present Illness Chief complaint: He is getting weaker and more confused and I cannot take care of him like this History of present illness: 82 YO Male with Atrial Fib on therapeutic anticoagulation with Eliquis, Systolic CHF, Debility, Vascular Dementia, Cerebral Atherosclerosis presents ED for evaluation. Patient has diminished cognition and provides minimal history. Patient is at bedside and provides more complete history. As per the patient has experienced increased weakness and confusion over the past 2 months with worsening symptoms over the past 2 weeks. Patient acknowledges increased weakness, decreased exercise tolerance, dyspnea on exertion, dyspnea at rest, decreased exercise tolerance, lower extremity swelling, orthopnea as well as paroxysmal Nocturnal dyspnea. Patient has experienced 10 pound weight gain in the past week. Patient treated with outpatient therapy with diuretic, fluid restriction with worsening of the aforementioned symptoms. The patient was seen and evaluated by his marketing campaign analyst today due to failed outpatient therapy. EMS was notified and the patient was subsequent transported to [facility] for further care and evaluation of the aforementioned symptoms. The patient was seen and evaluated in the emergency department. All lab and imaging studies reviewed. Patient found to have clinical symptoms consistent with CHF decompensation. Patient mated to telemetry and initiated on CHF protocol. Cardiology team consulted in ED. Patient denies fever, chills, chest pain, palpitation, productive cough, skin rash, recent contact, known exposure to COVID-19. Prior admission on 01/06/2022 reviewed. All medication listed at time of admission has been reconciled. Advanced care planning conducted in ED. Past History Past Medical History: atrial fib, heart failure Past Surgical History: No surgical history, Other (Reviewed) Social history: , lives with family Family history: hypertension Medications and Allergies Allergies Allergy/AdvReac Type Severity Reaction Status Date / Time No Known Allergies Allergy Verified 04/06/22 16:43 Home Medications Medication Instructions Recorded Confirmed Last Taken Type Aspirin BABY CHEW TAB 81 mg PO DAILY 01/26/22 01/26/22 01/25/22 10:00 History AtorvaSTATin 10 mg PO DAILY 01/26/22 01/26/22 01/25/22 10:00 History Coreg 3.125 mg PO BID 01/26/22 01/26/22 01/25/22 16:00 History Furosemide [Lasix] 40 mg PO DAILY 01/26/22 01/26/22 01/25/22 10:00 History Lisinopril [Zestril TAB] 2.5 mg PO QDAY 01/26/22 01/26/22 01/25/22 10:00 History Spironolactone [Aldactone] 25 mg PO QDAY 01/26/22 01/26/22 01/25/22 History Warfarin [Coumadin] 4 mg PO DAILY 01/26/22 01/26/22 01/25/22 16:00 History Active Meds: Active Medications Sodium Chloride (Nacl 0.9% 1000 Ml) 1,000 mls @ 999 mls/hr IV BOLUS ONE Stop: 04/06/22 18:27 Last Admin: 04/06/22 17:40 Dose: 999 mls/hr Review of Systems Constitutional: no weight loss, no weight gain, no fever, no chills Ears, nose, mouth and throat: no ear pain, no tinnitis, no decreased hearing, no nose pain, no nasal congestion Cardiovascular: orthopnea, edema, shortness of breath, dyspnea on exertion, paroxysmal nocturnal dyspnea, leg edema, decreased exercise tolerance, no chest pain, no palpitations, no syncope Respiratory: no cough, no cough with sputum, no excessive sputum Gastrointestinal: no abdominal pain, no nausea, no vomiting, no diarrhea Genitourinary Male: no hematuria, no flank pain, no discharge, no urinary frequency Rectal: no pain, no incontinence Musculoskeletal: no neck stiffness, no shooting arm pain, no arm numbness/tingling, no shooting leg pain Integumentary: no rash, no pruritis, no redness, no sores, no wounds Neurological: no transient paralysis, no paralysis, no parathesias, no numbness, no tingling Psychiatric: no anxiety, no change in sleep habits, no sleep disturbances, no hypersomnia, no suicidal ideation Endocrine: no cold intolerance, no heat intolerance, no excessive thirst, no polydipsia, no nocturia Hematologic/Lymphatic: no easy bruising, no easy bleeding Allergic/Immunologic: no urticaria, no allergic rhinitis, no wheezing Exam - Constitutional Vitals: Temp Pulse Resp BP Pulse Ox 98.4 F 78 20 109/72 97 04/06/22 17:08 04/06/22 17:08 04/06/22 17:08 04/06/22 17:08 04/06/22 17:08 General appearance: Present: mild distress - EENT Eyes: Present: PERRL ENT: clear oral mucosa, hearing decreased - Neck Neck: Present: supple, normal ROM, masses or JVD - Respiratory Respiratory effort: normal Respiratory: bilateral: diminished, rales - Cardiovascular Heart Sounds: Present: S1 & S2. Absent: rub, click - Extremities Extremities: pulses symmetrical Extremity abnormal: edema Peripheral Pulses: within normal limits - Abdominal General gastrointestinal: Present: soft, non-tender, non-distended, normal bowel sounds Male genitourinary: Present: normal - Integumentary Integumentary: Present: clear, warm, dry - Musculoskeletal Musculoskeletal: gait normal, strength equal bilaterally - Psychiatric Psychiatric: no appropriate mood/affect, no intact judgment & insight, cooperative - Neurologic Neurologic: CNII-XII intact, moves all extremities Assessment and Plan - Patient Problems (1) Systolic CHF Status: Acute Qualifiers: Heart failure chronicity: acute Qualified Code(s): I50.21 - Acute systolic (congestive) heart failure Plan to address problem: CHF protocol: Strict I's/O, monitor Q shift, daily weight, afterload reduction and blood pressure control, diuretic therapy, cardiology team consulted, echocardiogram ordered and pending at time of admission, supplemental oxygen, thyroid panel, magnesium level. (2) Atrial fibrillation Status: Acute Qualifiers: Atrial fibrillation type: longstanding persistent Qualified Code(s): I48.11 - Longstanding persistent atrial fibrillation Plan to address problem: Continue therapy anticoagulation, rate currently controlled, cardiology team consulted, echocardiogram ordered and pending (3) Vascular dementia Status: Acute Qualifiers: Dementia behavioral disturbance: without behavioral disturbance Qualified Code(s): F01.50 - Vascular dementia without behavioral disturbance Plan to address problem: Verbal prompting, verbal redirection, benzodiazepine therapy as clinically indicated. (4) Cerebral atherosclerosis Status: Acute Plan to address problem: Risk factor reduction, antiplatelet therapy as clinically indicated, supportive care. (5) Debility Status: Acute Plan to address problem: Treat CHF, supportive care. (6) DVT prophylaxis Status: Acute Plan to address problem: SCD to bilateral lower extremities while in bed, continue therapeutic anticoagulation. (7) Advance care planning Status: Acute Plan to address problem: Disease education conducted, care plan discussed, diagnoses discussed, prognosis discussed, patient is full code. Patient acknowledges understanding and agreement with care plan, +30 minutes. (8) Preventative health care Status: Acute Plan to address problem: Patient and counseled regarding risk factor reduction, outpatient follow-up with primary care physician for all age and risk factor appropriate screening test, +30 minutes.
--- NOTE | 2022-04-06 18:08 | XRay Report ---
CHEST 1 VIEW 04/06/2022 4:53 PM INDICATION / CLINICAL INFORMATION: Altered Mental Status. COMPARISON: 01/30/2022 chest FINDINGS: SUPPORT DEVICES: External cardiac device in place, which mildly limits the examination. HEART / MEDIASTINUM: Stable cardiomegaly and indwelling Watchman device position. LUNGS / PLEURA: No significant pulmonary or pleural abnormality. No pneumothorax. ADDITIONAL FINDINGS: None IMPRESSION: 1. Stable chest without acute cardiopulmonary process. Signer Name: Allen Keane MD Signed: 04/06/2022 6:03 PM Workstation Name: [id number]
[2022-04-06] MEDS ORDERED: ACETAMINOPHEN 325 MG TAB PO PRN (18:29)
[2022-04-06] MEDS ORDERED: ONDANSETRON 4 MG/2 ML INJ IV PRN (18:29)
[2022-04-06] MEDS ORDERED: oxyCODONE /ACETAMINOPHEN 5-325MG TAB PO PRN (18:29)
[2022-04-06] MEDS ORDERED: ALBUTEROL 2.5 MG/3 ML NEBU IH PRN (18:29)
[2022-04-06] MEDS ORDERED: HYDROmorphone 0.5 MG/0.5 ML INJ IV PRN (18:29)
[2022-04-06 18:32] LABS: Amphetamine Screen,Urine Negative; Benzodiazepines Screen,Urine Negative; Cannabinoid Screen,Urine Negative; Cocaine Screen,Urine Negative; Methadone Screen,Urine Negative; Opiate Screen,Urine Negative
[2022-04-06 19:19] LABS: Basophils % (Auto) 0.5 % (0.0-1.8); Eosinophils # (Auto) 0.7 K/mm3 (0.0-0.4); Hematocrit 41.6 % (35.5-45.6); Hemoglobin 14.4 gm/dl (11.8-15.2); Lymphocytes # (Auto) 0.7 K/mm3 (1.2-5.4); Lymphocytes % (Auto) 9.4 % (13.4-35.0); Mean Corpuscular HGB Conc 35 % (32-34); Mean Corpuscular Volume 94 fl (84-94); Monocytes # (Auto) 0.9 K/mm3 (0.0-0.8); Platelet Count 152 K/mm3 (140-440); Red Blood Count 4.44 M/mm3 (3.65-5.03); Red Cell Distribution Width 14.2 % (13.2-15.2)
[2022-04-06 19:22] LABS: Color,Urine Straw (Yellow)
[2022-04-06 19:26] LABS: Alanine Aminotransferase 22 units/L (7-56); Albumin 3.8 g/dL (3.9-5); BUN/Creatinine Ratio 35; Blood Urea Nitrogen 45 mg/dL (9-20); Calcium 9.1 mg/dL (8.4-10.2); Hemolysis Index 24
[2022-04-06 19:33] LABS: WBC,Urine < 1.0 /HPF (0.0-6.0)
[2022-04-06 19:42] LABS: INR 1.32 (0.87-1.13)
[2022-04-06 19:48] LABS: Partial Thromboplastin Time 31.8 Sec. (24.2-36.6)
[2022-04-06 20:00] LABS: Free T4 (Free Thyroxine) 1.71 ng/dL (0.76-1.46)
[2022-04-06 20:22] LABS: Chol/HDL Ratio 3.14 %; HDL Cholesterol 41 mg/dL (40-59); LDL Cholesterol,Direct 81 mg/dL (50-130)
--- NOTE | 2022-04-06 20:38 | Emergency Department Report ---
ED General Adult HPI - General Chief complaint: Weakness Stated complaint: WEAKNESS PUI?: No Time Seen by Provider: 04/06/22 17:16 Source: EMS Mode of arrival: Stretcher Limitations: No Limitations - History of Present Illness Initial comments: pt here with weakness, went to primary today, bp was low, send here for further work up dr Hall mold worker here for work up he said he has been urinating alot lately , no fever no chets pain , SOB and chf -: Gradual, This evening Severity scale (0 -10): 0 Consistency: constant Improves with: none Worsens with: none Associated Symptoms: malaise, shortness of breath, weakness. denies: diaphoresis, fever/chills - Related Data Home Medications Medication Instructions Recorded Confirmed Last Taken Aspirin BABY CHEW TAB 81 mg PO DAILY 01/26/22 01/26/22 01/25/22 10:00 AtorvaSTATin 10 mg PO DAILY 01/26/22 01/26/22 01/25/22 10:00 Coreg 3.125 mg PO BID 01/26/22 01/26/22 01/25/22 16:00 Furosemide [Lasix] 40 mg PO DAILY 01/26/22 01/26/22 01/25/22 10:00 Lisinopril [Zestril TAB] 2.5 mg PO QDAY 01/26/22 01/26/22 01/25/22 10:00 Spironolactone [Aldactone] 25 mg PO QDAY 01/26/22 01/26/22 01/25/22 Warfarin [Coumadin] 4 mg PO DAILY 01/26/22 01/26/22 01/25/22 16:00 Allergies Allergy/AdvReac Type Severity Reaction Status Date / Time No Known Allergies Allergy Verified 04/06/22 16:43 ED Review of Systems ROS: Stated complaint: WEAKNESS Other details as noted in HPI Constitutional: denies: chills, fever Eyes: denies: eye pain, eye discharge, vision change ENT: denies: ear pain, throat pain Respiratory: denies: cough, shortness of breath, wheezing Cardiovascular: denies: chest pain, palpitations Endocrine: no symptoms reported Gastrointestinal: denies: abdominal pain, nausea, diarrhea Genitourinary: denies: urgency, dysuria Musculoskeletal: denies: back pain, joint swelling, arthralgia Skin: denies: rash, lesions Neurological: denies: headache, weakness, paresthesias Psychiatric: denies: anxiety, depression Hematological/Lymphatic: denies: easy bleeding, easy bruising ED Past Medical Hx - Past Medical History Previous Medical History?: Yes Hx Congestive Heart Failure: Yes Additional medical history: afib, mitral valve, cardiomyopothy - Social History Smoking Status: Never Smoker Substance Use Type: None - Medications Home Medications: Home Medications Medication Instructions Recorded Confirmed Last Taken Type Aspirin BABY CHEW TAB 81 mg PO DAILY 01/26/22 01/26/22 01/25/22 10:00 History AtorvaSTATin 10 mg PO DAILY 01/26/22 01/26/22 01/25/22 10:00 History Coreg 3.125 mg PO BID 01/26/22 01/26/22 01/25/22 16:00 History Furosemide [Lasix] 40 mg PO DAILY 01/26/22 01/26/22 01/25/22 10:00 History Lisinopril [Zestril TAB] 2.5 mg PO QDAY 01/26/22 01/26/22 01/25/22 10:00 History Spironolactone [Aldactone] 25 mg PO QDAY 01/26/22 01/26/22 01/25/22 History Warfarin [Coumadin] 4 mg PO DAILY 01/26/22 01/26/22 01/25/22 16:00 History ED Physical Exam - General Limitations: No Limitations General appearance: alert, other (weak) - Head Head exam: Present: atraumatic, normocephalic - Eye Eye exam: Present: normal appearance - ENT ENT exam: Present: mucous membranes moist - Neck Neck exam: Present: normal inspection - Respiratory Respiratory exam: Present: normal lung sounds bilaterally. Absent: respiratory distress - Cardiovascular Cardiovascular Exam: Present: regular rate, irregular rhythm. Absent: systolic murmur, diastolic murmur, rubs, gallop - GI/Abdominal GI/Abdominal exam: Present: soft, normal bowel sounds - Rectal Rectal exam: Present: deferred - Extremities Exam Extremities exam: Present: normal inspection - Back Exam Back exam: Present: normal inspection - Neurological Exam Neurological exam: Present: alert, oriented X3 - Psychiatric Psychiatric exam: Present: normal affect, normal mood - Skin Skin exam: Present: warm, dry, intact, normal color. Absent: rash ED Course Vital Signs 04/06/22 04/06/22 04/06/22 16:38 17:08 18:18 Temperature 98.4 F 98.7 F Pulse Rate 70 78 66 Respiratory 14 20 16 Rate Blood Pressure 109/72 Blood Pressure 104/58 109/72 112/77 [Left] O2 Sat by Pulse 98 97 97 Oximetry 04/06/22 19:30 Temperature 97.8 F Pulse Rate 72 Respiratory 19 Rate Blood Pressure Blood Pressure 109/76 [Left] O2 Sat by Pulse 98 Oximetry ED Medical Decision Making - Lab Data Result diagrams: 04/06/22 18:28 04/06/22 18:28 - EKG Data -: EKG Interpreted by Va - EKG Data Interpretation: nonspecific ST-T wave tori, other (afib ) - Radiology Data Radiology results: report reviewed, image reviewed - Medical Decision Making work up showed CHF , borderline BP, ekg showed Afiv CVR , no rvr , will admit for card consult Critical care attestation.: If time is entered above; I have spent that time in minutes in the direct care of this critically ill patient, excluding procedure time. ED Disposition Clinical Impression: Weakness, Chronic systolic heart failure Atrial fibrillation Qualifiers: Atrial fibrillation type: longstanding persistent Qualified Code(s): I48.11 - Longstanding persistent atrial fibrillation Disposition: 01 HOME / SELF CARE / HOMELESS Is pt being admited?: No Does the pt Need Aspirin: No Condition: Stable Instructions: Apixaban oral tablets
[2022-04-06] MEDS ORDERED: COREG 3.125 MG PO SCH (22:00)
[2022-04-06] MEDS: LISINOPRIL 5 MG TAB PO SCH (22:41)
[2022-04-06] MEDS: carvediloL 3.125 MG TAB PO SCH (22:58)
[2022-04-06] MEDS: APIXABAN 5 MG TAB PO SCH (22:59)
[2022-04-07] MEDS: FUROSEMIDE 20 MG/2 ML INJ IV SCH ×2 (05:31→18:00)
[2022-04-07 05:41] LABS: BUN/Creatinine Ratio 32; Blood Urea Nitrogen 41 mg/dL (9-20); Calcium 9.2 mg/dL (8.4-10.2); Hemolysis Index 4
--- NOTE | 2022-04-07 07:49 | Progress Note ---
Assessment and Plan Assessment and plan: #Acute on chronic combined systolic and diastolic heart failure #dilated cardiomyopathy -TTE 04/07/2022: LVEF 20-25%, thickened pericardium -continue IV lasix 20mg BID, coreg, and lisinopril at home doses -continue telemetry, patient has LifeVest and is compliant at home -Cardiology following, assistance appreciated #Chronic atrial fibrillation -continue eliquis and coreg -Cardiology following -continue telemetry #Vascular dementia-stable #Cerebral atherosclerosis -patient currently alert and oriented -maintain sleep-awake cycle to avoid delirium/worsening #Debility -PT evaluation pending #Advance care planning -Disease education conducted, care plan discussed, diagnoses discussed, progno sis discussed, patient is full code. Patient acknowledges understanding and agreement with care plan. NOK Stephanie Frazier was contacted [phone], +30 minutes. History Interval history: No acute events overnight. Patient is alert to person and place. He denies shortness of breath, chest pain and palpitations. He has been using the urinal for his increased urinary output. He has no acute complaints at this time. Hospitalist Physical - Physical exam Narrative exam: GENERAL: Thin elderly male. In no acute distress. HEENT: Normocephalic. Atraumatic. NECK: Supple. CHEST/LUNGS: CTAB on room air HEART/CARDIOVASCULAR: RRR. No murmur, rubs or gallops appreciated. ABDOMEN: +BS. NT/ND. SKIN: No rashes noted. NEURO: No focal motor deficit. Follows all commands and is ambulatory. MUSCULOSKELETAL: No joint effusion EXTREMITIES: No cyanosis, clubbing. He has 1+ b/l lower extremity edema PSYCH: Cooperative. - Constitutional Vitals: Temp Pulse Resp BP Pulse Ox 98.2 F 57 L 16 94/58 96 04/07/22 04:19 04/07/22 06:42 04/07/22 04:19 04/07/22 04:19 04/07/22 04:19 HEART Score - HEART Score Troponin: Troponin T 0.100 ng/mL (0.00-0.029) H 04/06/22 18:28 Results - Labs CBC & Chem 7: 04/08/22 05:00 04/08/22 04:00 Labs: Laboratory Last Values WBC 7.4 K/mm3 (4.5-11.0) 04/06/22 18: RBC 4.44 M/mm3 (3.65-5.03) 04/06/22 18: Hgb 14.4 gm/dl (11.8-15.2) 04/06/22 18: Hct 41.6 % (35.5-45.6) 04/06/22 18: MCV 94 fl (84-94) 04/06/22 18: MCH 32 pg (28-32) 04/06/22 18: MCHC 35 % (32-34) H 04/06/22 18: RDW 14.2 % (13.2-15.2) 04/06/22: Plt Count 152 K/mm3 (140-440) 04/06/22: Lymph % (Auto) 9.4 % (13.4-35.0) L 04/06/22 18: Harris % (Auto) 12.0 % (0.0-7.3) H 04/06/22 18: Eos % (Auto) 10.0 % (0.0-4.3) H 04/06/22 18: Baso % (Auto) 0.5 % (0.0-1.8) 04/06/22: Lymph # (Auto) 0.7 K/mm3 (1.2-5.4) L 04/06/22 18: Harris # (Auto) 0.9 K/mm3 (0.0-0.8) H 04/06/22 18: Eos # (Auto) 0.7 K/mm3 (0.0-0.4) H 04/06/22 18: Baso # (Auto) 0.0 K/mm3 (0.0-0.1) 04/06/22 18: Seg Neutrophils % 68.1 % (40.0-70.0) 04/06/22 18: Seg Neutrophils # 5.1 K/mm3 (1.8-7.7) 04/06/22 18: PT 17.9 Sec. (12.2-14.9) H 04/06/22 18: INR 1.32 (0.87-1.13) H 04/06/22 18: APTT 31.8 Sec. (24.2-36.6) 04/06/22 18:28 Sodium 137 mmol/L (137-145) 04/07/22 04:53 Potassium 3.9 mmol/L (3.6-5.0) 04/07/22 04:53 Chloride 93.6 mmol/L (98-107) L 04/07/22 04:53 Carbon Dioxide 30 mmol/L (22-30) 04/07/22 04:53 Anion Gap 17 mmol/L 04/07/22 04:53 BUN 41 mg/dL (9-20) H 04/07/22 04:53 Creatinine 1.3 mg/dL (0.8-1.3) 04/07/22 04:53 Estimated GFR > 60 ml/min 04/07/22 04:53 BUN/Creatinine Ratio 32 % 04/07/22 04:53 Glucose 101 mg/dL (75-100) H 04/07/22 04:53 Lactic Acid 1.80 mmol/L (0.7-2.0) 04/06/22 18:28 Calcium 9.2 mg/dL (8.4-10.2) 04/07/22 04:53 Magnesium 1.70 mg/dL (1.7-2.3) 04/06/22 14:29 Total Bilirubin 1.30 mg/dL (0.1-1.2) H 04/06/22 18:28 AST 31 units/L (5-40) 04/06/22 18:28 ALT 22 units/L (7-56) 04/06/22 18:28 Alkaline Phosphatase 64 units/L (35-129) 04/06/22 18:28 Total Creatine Kinase 38 units/L (55-170) L 04/06/22 18:28 Troponin T 0.100 ng/mL (0.00-0.029) H 04/06/22 18:28 NT-Pro-B Natriuret Pep 3636 pg/mL (0-900) H 04/06/22 14:29 Total Protein 6.4 g/dL (6.3-8.2) 04/06/22 18:28 Albumin 3.8 g/dL (3.9-5) L 04/06/22 18:28 Albumin/Globulin Ratio 1.5 % 04/06/22 18:28 Triglycerides 66 mg/dL (2-149) 04/06/22 18:28 Cholesterol 129 mg/dL (50-199) 04/06/22 18:28 LDL Cholesterol Direct 81 mg/dL (50-130) 04/06/22 18:28 HDL Cholesterol 41 mg/dL (40-59) 04/06/22 18:28 Cholesterol/HDL Ratio 3.14 % 04/06/22 18:28 TSH 0.629 mlU/mL (0.270-4.200) 04/06/22 14:29 Free T4 1.71 ng/dL (0.76-1.46) H 04/06/22 14:29 Urine Color Straw (Yellow) 04/06/22 17:43 Urine Turbidity Clear (Clear) 04/06/22 17:43 Specific [place] (Man) 1.010 (1.003-1.030) 04/06/22 17:43 Ur Protein (Man) Negative mg/dL (Negative) 04/06/22 17:43 Ur Ketones (Man) Negative (Negative) 04/06/22 17:43 Ur Nitrite (Man) Negative (Negative) 04/06/22 17:43 Urine Bilirubin (Man) Negative (Negative) 04/06/22 17:43 Leukocyte Esterase (Man) Negative (Negative) 04/06/22 17:43 Urine WBC (Auto) < 1.0 /HPF (0.0-6.0) 04/06/22 17:43 Urine RBC (Auto) 1.0 /HPF (0.0-6.0) 04/06/22 17:43 Urine RBC (Manual) Negative (Negative) 04/06/22 17:43 Salicylates < 0.3 mg/dL (2.8-20.0) L 04/06/22 18:28 Urine Opiates Screen Negative 04/06/22 17:43 Urine Methadone Screen Negative 04/06/22 17:43 Acetaminophen 5.0 ug/mL (10.0-30.0) L 04/06/22 18:28 Ur Barbiturates Screen Negative 04/06/22 17:43 Ur Phencyclidine Scrn Negative 04/06/22 17:43 Ur Amphetamines Screen Negative 04/06/22 17:43 U Benzodiazepines Scrn Negative 04/06/22 17:43 Urine Cocaine Screen Negative 04/06/22 17:43 U Marijuana (THC) Screen Negative 04/06/22 17:43 Drugs of Abuse Note Disclamer 04/06/22 17:43 Plasma/Serum Alcohol < 0.01 % (0-0.07) 04/06/22 18:28 Garvin/IV: Voiding Method Urinal Active Medications - Current Medications Current Medications: Generic Name Dose Route Start Last Admin Trade Name Freq PRN Reason Stop Dose Admin Acetaminophen 650 mg 04/06/22 18:29 Acetaminophen 325 Mg Tab PO Q4H PRN Pain MILD(1-3)/Fever >100.5/CAMACHO Albuterol 2.5 mg 04/06/22 18:29 Albuterol 2.5 Mg/3 Ml Nebu IH Q4HRT PRN Shortness Of Breath Apixaban 5 mg 04/06/22 22:00 04/06/22 22:59 Apixaban 5 Mg Tab PO 5 mg Q12HR KELI Administration Protocol Aspirin 81 mg 04/07/22 10:00 Aspirin 81 Mg Tab Chew PO QDAY KELI Atorvastatin Calcium 10 mg 04/07/22 10:00 Atorvastatin 10 Mg Tab PO DAILY [facility] Carvedilol 3.125 mg 04/06/22 22:00 04/06/22 22:58 Carvedilol 3.125 Mg Tab PO 3.125 mg BID KELI Administration Furosemide 20 mg 04/07/22 06:00 04/07/22 05:31 Furosemide 20 Mg/2 Ml Inj IV 20 mg BID@0600,1800 KELI Administration Hydromorphone HCl 0.5 mg 04/06/22 18:29 Hydromorphone 0.5 Mg/0.5 Ml Inj IV Q23H PRN Pain , Severe (7-10) Lisinopril 2.5 mg 04/06/22 22:00 04/06/22 22:41 Lisinopril 5 Mg Tab PO Not Given BID KELI Ondansetron HCl 4 mg 04/06/22 18:29 Ondansetron 4 Mg/2 Ml Inj IV Q8H PRN Nausea And Vomiting Oxycodone/Acetaminophen 1 tab 04/06/22 18:29 Oxycodone /Acetaminophen 5-325mg Tab PO Q16H PRN Pain, Moderate (4-6) Sodium Chloride 10 ml 04/06/22 22:00 04/06/22 22:30 Sodium Chloride 0.9% 10 Ml Flush Syringe IV 10 ml BID KELI Administration Sodium Chloride 10 ml 04/06/22 18:29 Sodium Chloride 0.9% 10 Ml Flush Syringe IV PRN PRN LINE FLUSH Spironolactone 25 mg 04/07/22 10:00 Spironolactone 25 Mg Tab PO QDAY KELI
[2022-04-07] MEDS: APIXABAN 5 MG TAB PO SCH ×2 (09:19→21:32)
[2022-04-07] MEDS: ASPIRIN 81 MG TAB CHEW PO SCH (09:19)
[2022-04-07] MEDS: LISINOPRIL 5 MG TAB PO SCH ×2 (09:26→21:45)
[2022-04-07] MEDS: SPIRONOLACTONE 25 MG TAB PO SCH (09:26)
[2022-04-07] MEDS: carvediloL 3.125 MG TAB PO SCH ×2 (09:26→21:45)
[2022-04-07] MEDS ORDERED: ASPIRIN 81 MG TAB CHEW PO SCH (10:00)
[2022-04-07] MEDS ORDERED: NON-FORMULARY EACH (Aspirin Baby Chew Tab 81 MG) PO SCH (10:00)
[2022-04-07] MEDS ORDERED: NON-FORMULARY EACH (Lisinopril [Zestril Tab] 2.5 MG Tablet) PO SCH (10:00)
[2022-04-07] MEDS ORDERED: WARFARIN 2 MG TAB PO SCH (10:00)
--- NOTE | 2022-04-07 12:43 | Consultation ---
History of Present Illness Consult date: 04/07/22 Consult reason: atrial fibrillation, congestive heart failure History of present illness: 82-year-old -German male with a history of dilated cardiomyopathy and congestive heart failure with chronic atrial fibrillation presenting with sh ortness of breath Past History Past Medical History: atrial fib, heart failure Past Surgical History: No surgical history, Other (Reviewed) Social history: , lives with family Family history: hypertension Medications and Allergies Allergies Allergy/AdvReac Type Severity Reaction Status Date / Time No Known Allergies Allergy Verified 04/06/22 16:43 Home Medications Medication Instructions Recorded Confirmed Last Taken Type Aspirin BABY CHEW TAB 81 mg PO DAILY 01/26/22 01/26/22 01/25/22 10:00 History AtorvaSTATin 10 mg PO DAILY 01/26/22 01/26/22 01/25/22 10:00 History Coreg 3.125 mg PO BID 01/26/22 01/26/22 01/25/22 16:00 History Furosemide [Lasix] 40 mg PO DAILY 01/26/22 01/26/22 01/25/22 10:00 History Lisinopril [Zestril TAB] 2.5 mg PO QDAY 01/26/22 01/26/22 01/25/22 10:00 History Spironolactone [Aldactone] 25 mg PO QDAY 01/26/22 01/26/22 01/25/22 History Warfarin [Coumadin] 4 mg PO DAILY 01/26/22 01/26/22 01/25/22 16:00 History Active Meds: Active Medications Acetaminophen (Acetaminophen 325 Mg Tab) 650 mg PO Q4H PRN PRN Reason: Pain MILD(1-3)/Fever >100.5/CAMACHO Albuterol (Albuterol 2.5 Mg/3 Ml Nebu) 2.5 mg IH Q4HRT PRN PRN Reason: Shortness Of Breath Apixaban (Apixaban 5 Mg Tab) 5 mg PO Q12HR [facility]; Protocol Last Admin: 04/07/22 09:19 Dose: 5 mg Aspirin (Aspirin 81 Mg Tab Chew) 81 mg PO QDAY [facility] Last Admin: 04/07/22 09:19 Dose: 81 mg Atorvastatin Calcium (Atorvastatin 10 Mg Tab) 10 mg PO DAILY [facility] Last Admin: 04/07/22 09:19 Dose: 10 mg Carvedilol (Carvedilol 3.125 Mg Tab) 3.125 mg PO BID [facility] Last Admin: 04/07/22 09:26 Dose: 3.125 mg Furosemide (Furosemide 20 Mg/2 Ml Inj) 20 mg IV BID@0600,1800 [facility] Last Admin: 04/07/22 05:31 Dose: 20 mg Hydromorphone HCl (Hydromorphone 0.5 Mg/0.5 Ml Inj) 0.5 mg IV Q23H PRN PRN Reason: Pain , Severe (7-10) Lisinopril (Lisinopril 5 Mg Tab) 2.5 mg PO BID [facility] Last Admin: 04/07/22 09:26 Dose: Not Given Ondansetron HCl (Ondansetron 4 Mg/2 Ml Inj) 4 mg IV Q8H PRN PRN Reason: Nausea And Vomiting Oxycodone/Acetaminophen (Oxycodone /Acetaminophen 5-325mg Tab) 1 tab PO Q16H PRN PRN Reason: Pain, Moderate (4-6) Sodium Chloride (Sodium Chloride 0.9% 10 Ml Flush Syringe) 10 ml IV BID [facility] Last Admin: 04/07/22 09:20 Dose: 10 ml Sodium Chloride (Sodium Chloride 0.9% 10 Ml Flush Syringe) 10 ml IV PRN PRN PRN Reason: LINE FLUSH Spironolactone (Spironolactone 25 Mg Tab) 25 mg PO QDAY [facility] Last Admin: 04/07/22 09:26 Dose: Not Given Review of Systems Constitutional: fatigue, weakness, no weight loss, no weight gain, no fever, no anorexia Ears, nose, mouth and throat: no deferred, no ear pain, no ear discharge, no tinnitis, no nose pain, no nasal discharge, no epistaxis Cardiovascular: no chest pain, no orthopnea, no palpitations, no edema, no lightheadedness Respiratory: no cough, no cough with sputum, no excessive sputum, no hemoptysis, no shortness of breath, no dyspnea on exertion Gastrointestinal: no abdominal pain, no nausea, no vomiting, no diarrhea, no melena, no hematochezia Genitourinary Male: no dysuria, no hematuria, no flank pain, no discharge, no urinary frequency, no urinary hesitancy Rectal: no pain, no incontinence, no bleeding Musculoskeletal: no neck pain, no shooting arm pain, no hot joints, no muscle weakness, no muscle cramps, no loss of height Integumentary: no rash, no pruritis Neurological: no transient paralysis, no paralysis, no weakness, no headaches, no migraines, no aphasia Psychiatric: anxiety, memory loss Endocrine: no cold intolerance, no heat intolerance, no polyphagia, no excessive thirst, no polyuria Allergic/Immunologic: no urticaria, no allergic rhinitis, no wheezing Physical Examination Vital Signs Pulse Resp BP Pulse Ox 70 14 104/58 98 04/06/22 16:38 04/06/22 16:38 04/06/22 16:38 04/06/22 16:38 General appearance: no acute distress HEENT: Positive: PERRL, Sinus Tenderness, Mucus Membranes Moist Neck: Positive: neck supple, trachea midline. Negative: JVD/HJR Cardiac: Positive: Reg Rate and Rhythm, Regular Rate, S1/S2, S3, PMI, Dilated, Laterally Displaced Lungs: Positive: clear to auscultation, No Wheeze, Rales, Rhonchi Neuro: Positive: Grossly Intact, No Lateralizing Findings Abdomen: Positive: Soft, Active Bowel Sounds Skin: Negative: Rash Extremities: Absent: edema Results 04/06/22 18:28 04/07/22 04:53 Cardiac Enzymes 04/06/22 Range/Units 18:28 AST 31 (5-40) units/L Coagulation 04/06/22 Range/Units 18:28 PT 17.9 H (12.2-14.9) Sec. INR 1.32 H (0.87-1.13) APTT 31.8 (24.2-36.6) Sec. Lipids 04/06/22 Range/Units 18:28 Triglycerides 66 (2-149) mg/dL Cholesterol 129 (50-199) mg/dL HDL Cholesterol 41 (40-59) mg/dL Cholesterol/HDL Ratio 3.14 % CBC 04/06/22 Range/Units 18:28 WBC 7.4 (4.5-11.0) K/mm3 RBC 4.44 (3.65-5.03) M/mm3 Hgb 14.4 (11.8-15.2) gm/dl Hct 41.6 (35.5-45.6) % Plt Count 152 (140-440) K/mm3 Lymph # (Auto) 0.7 L (1.2-5.4) K/mm3 [place] # (Auto) 0.9 H (0.0-0.8) K/mm3 Eos # (Auto) 0.7 H (0.0-0.4) K/mm3 Baso # (Auto) 0.0 (0.0-0.1) K/mm3 Comprehensive Metabolic Panel 04/06/22 04/07/22 Range/Units 18:28 04:53 Sodium 132 L 137 (137-145) mmol/L Potassium 4.3 3.9 (3.6-5.0) mmol/L Chloride 89.1 L 93.6 L (98-107) mmol/L Carbon Dioxide 31 H 30 (22-30) mmol/L BUN 45 H 41 H (9-20) mg/dL Creatinine 1.3 1.3 (0.8-1.3) mg/dL Glucose 110 H 101 H (75-100) mg/dL Calcium 9.1 9.2 (8.4-10.2) mg/dL AST 31 (5-40) units/L ALT 22 (7-56) units/L Alkaline Phosphatase 64 (35-129) units/L Total Protein 6.4 (6.3-8.2) g/dL Albumin 3.8 L (3.9-5) g/dL - EKG Interpretation EKG shows: atrial fibrillation EKG interpretations - Telemetry EKG Rhythm: Atrial Fibrillation Assessment and Plan 1. Chronic combined systolic and diastolic heart failure 2. Dilated cardiomyopathy with biventricular failure left ventricular ejection fraction 20 to 25% 3. Permanent atrial fibrillation 4. Cerebrovascular disease 5. Dementia without behavioral abnormality type unspecified Patient is stable his chest x-ray shows no acute cardiopulmonary process i.e. 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 Patient has a LifeVest on Plan. Resume home medication continue present conservative management
[2022-04-07] MEDS ORDERED: SODIUM CHLORIDE 0.9% 500 ML IVPB IV ONE (18:00)
[2022-04-07] MEDS: POLYETHYLENE GLYCOL 3350 17 GM POWDER PO PRN (18:28)
[2022-04-08] MEDS: FUROSEMIDE 20 MG/2 ML INJ IV SCH (06:40)
[2022-04-08 07:37] LABS: BUN/Creatinine Ratio 37; Blood Urea Nitrogen 41 mg/dL (9-20); Calcium 9.1 mg/dL (8.4-10.2); Hemolysis Index 19
[2022-04-08 07:47] LABS: Hematocrit 42.8 % (35.5-45.6); Hemoglobin 14.7 gm/dl (11.8-15.2); Mean Corpuscular HGB Conc 34 % (32-34); Mean Corpuscular Volume 92 fl (84-94); Platelet Count 169 K/mm3 (140-440); Red Blood Count 4.65 M/mm3 (3.65-5.03); Red Cell Distribution Width 14.2 % (13.2-15.2)
--- NOTE | 2022-04-08 10:15 | Progress Note ---
Assessment and Plan 1. Chronic combined systolic and diastolic heart failure 2. Dilated cardiomyopathy with biventricular failure left ventricular ejection fraction 20 to 25% 3. Permanent atrial fibrillation 4. Cerebrovascular disease 5. Dementia without behavioral abnormality type unspecified Patient is stable his chest x-ray shows no acute cardiopulmonary process i.e. 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 Patient has a LifeVest on Plan. Resume home medication continue present conservative management. Discharge planning Subjective Date of service: 04/08/22 Interval history: No cardiac complains. Objective Vital Signs Temp Pulse Resp BP BP Pulse Ox 04/08/22 08:13 98.6 F 65 16 122/80 92 04/08/22 04:18 62 04/08/22 04:02 97.6 F 63 16 107/72 81 L 04/08/22 04:00 18 96 04/08/22 00:15 57 L 04/07/22 23:14 97.8 F 72 16 85/57 97 04/07/22 21:45 55 L 84/56 04/07/22 20:08 70 04/07/22 19:15 98.3 F 73 16 85/55 96 04/07/22 17:58 78 77/51 04/07/22 16:40 18 92 04/07/22 15:41 98.0 F 64 16 88/41 100 04/07/22 12:20 71 04/07/22 11:47 98.0 F 65 16 98/56 57 L - Physical Examination HEENT: Positive: PERRL, Sinus Tenderness, Mucus Membranes Moist Neck: Positive: neck supple, trachea midline. Negative: JVD/HJR Cardiac: Positive: irregularly irregular, S1/S2, S3, PMI, Dilated, Laterally Displaced Lungs: Positive: clear to auscultation, No Wheeze, Rales, Rhonchi Neuro: Positive: Grossly Intact, No Lateralizing Findings Abdomen: Positive: Soft, Active Bowel Sounds Skin: Negative: Rash Extremities: Absent: edema - Labs and Meds CBC 04/08/22 Range/Units 05:00 WBC 7.5 (4.5-11.0) K/mm3 RBC 4.65 (3.65-5.03) M/mm3 Hgb 14.7 (11.8-15.2) gm/dl Hct 42.8 (35.5-45.6) % Plt Count 169 (140-440) K/mm3 Comprehensive Metabolic Panel 04/08/22 Range/Units 04:00 Sodium 133 L (137-145) mmol/L Potassium 4.0 (3.6-5.0) mmol/L Chloride 89.9 L (98-107) mmol/L Carbon Dioxide 32 H (22-30) mmol/L BUN 41 H (9-20) mg/dL Creatinine 1.1 (0.8-1.3) mg/dL Glucose 101 H (75-100) mg/dL Calcium 9.1 (8.4-10.2) mg/dL
[2022-04-08] MEDS: FUROSEMIDE 40 MG TAB PO SCH (10:29)
[2022-04-08] MEDS: SPIRONOLACTONE 25 MG TAB PO SCH (10:29)
[2022-04-08] MEDS: APIXABAN 5 MG TAB PO SCH ×2 (10:29→21:07)
[2022-04-08] MEDS: ASPIRIN 81 MG TAB CHEW PO SCH (10:30)
[2022-04-08] MEDS: LISINOPRIL 5 MG TAB PO SCH ×2 (10:30→21:18)
[2022-04-08] MEDS: carvediloL 3.125 MG TAB PO SCH ×2 (10:30→21:18)
--- NOTE | 2022-04-08 11:57 | Progress Note ---
Assessment and Plan Assessment and plan: #Acute on chronic combined systolic and diastolic heart failure #dilated cardiomyopathy -TTE 04/07/2022: LVEF 20-25%, thickened pericardium -continue IV lasix 20mg BID, coreg, and lisinopril at home doses -continue telemetry, patient has LifeVest and is compliant at home -Cardiology following, assistance appreciated #Chronic atrial fibrillation -continue eliquis and coreg -Cardiology following -continue telemetry #Vascular dementia-stable #Cerebral atherosclerosis -patient currently alert and oriented -maintain sleep-awake cycle to avoid delirium/worsening #Debility -PT evaluation pending #Advance care planning -Disease education conducted, care plan discussed, diagnoses discussed, progno sis discussed, patient is full code. Patient acknowledges understanding and agreement with care plan. NOK Stephanie Frazier was contacted [phone]. She has been having a hard time taking care of the patient at home. She would like him to come home with some assistance. +30 minutes. History Interval history: No acute events overnight. Patient has no complaints at this time. He continues to have adequate UOP. Hospitalist Physical - Physical exam Narrative exam: GENERAL: Thin elderly male. In no acute distress. HEENT: Normocephalic. Atraumatic. NECK: Supple. CHEST/LUNGS: CTAB on room air HEART/CARDIOVASCULAR: RRR. No murmur, rubs or gallops appreciated. ABDOMEN: +BS. NT/ND. SKIN: No rashes noted. NEURO: No focal motor deficit. Follows all commands and is ambulatory. MUSCULOSKELETAL: No joint effusion EXTREMITIES: No cyanosis, clubbing. He has 1+ b/l lower extremity edema improving. PSYCH: Cooperative. - Constitutional Vitals: Temp Pulse Resp BP Pulse Ox 98.6 F 68 16 122/80 97 04/08/22 08:13 04/08/22 10:30 04/08/22 08:13 04/08/22 10:30 04/08/22 10:00 General appearance: Present: mild distress HEART Score - HEART Score Troponin: Troponin T 0.100 ng/mL (0.00-0.029) H 04/06/22 18:28 Results - Labs CBC & Chem 7: 04/08/22 05:00 04/09/22 04:51 Labs: Laboratory Last Values WBC 7.5 K/mm3 (4.5-11.0) 04/08/22 05:00 RBC 4.65 M/mm3 (3.65-5.03) 04/08/22 05:00 Hgb 14.7 gm/dl (11.8-15.2) 04/08/22 05:00 Hct 42.8 % (35.5-45.6) 04/08/22 05:00 MCV 92 fl (84-94) 04/08/22 05:00 MCH 32 pg (28-32) 04/08/22 05:00 MCHC 34 % (32-34) 04/08/22 05:00 RDW 14.2 % (13.2-15.2) 04/08/22 05:00 Plt Count 169 K/mm3 (140-440) 04/08/22 05:00 Lymph % (Auto) 9.4 % (13.4-35.0) L 04/06/22 18:28 [place] % (Auto) 12.0 % (0.0-7.3) H 04/06/22 18:28 Eos % (Auto) 10.0 % (0.0-4.3) H 04/06/22 18:28 Baso % (Auto) 0.5 % (0.0-1.8) 04/06/22 18:28 Lymph # (Auto) 0.7 K/mm3 (1.2-5.4) L 04/06/22 18:28 [place] # (Auto) 0.9 K/mm3 (0.0-0.8) H 04/06/22 18:28 Eos # (Auto) 0.7 K/mm3 (0.0-0.4) H 04/06/22 18:28 Baso # (Auto) 0.0 K/mm3 (0.0-0.1) 04/06/22 18:28 Seg Neutrophils % 68.1 % (40.0-70.0) 04/06/22 18: Seg Neutrophils # 5.1 K/mm3 (1.8-7.7) 04/06/22 18:28 PT 17.9 Sec. (12.2-14.9) H 04/06/22 18:28 INR 1.32 (0.87-1.13) H 04/06/22 18:28 APTT 31.8 Sec. (24.2-36.6) 04/06/22 18:28 Sodium 133 mmol/L (137-145) L 04/08/22 04:00 Potassium 4.0 mmol/L (3.6-5.0) 04/08/22 04:00 Chloride 89.9 mmol/L (98-107) L 04/08/22 04:00 Carbon Dioxide 32 mmol/L (22-30) H 04/08/22 04:00 Anion Gap 15 mmol/L 04/08/22 04:00 BUN 41 mg/dL (9-20) H 04/08/22 04:00 Creatinine 1.1 mg/dL (0.8-1.3) 04/08/22 04:00 Estimated GFR > 60 ml/min 04/08/22 04:00 BUN/Creatinine Ratio 37 % 04/08/22 04:00 Glucose 101 mg/dL (75-100) H 04/08/22 04:00 Lactic Acid 1.80 mmol/L (0.7-2.0) 04/06/22 18:28 Calcium 9.1 mg/dL (8.4-10.2) 04/08/22 04:00 Magnesium 1.70 mg/dL (1.7-2.3) 04/06/22 14:29 Total Bilirubin 1.30 mg/dL (0.1-1.2) H 04/06/22 18:28 AST 31 units/L (5-40) 04/06/22 18:28 ALT 22 units/L (7-56) 04/06/22 18:28 Alkaline Phosphatase 64 units/L (35-129) 04/06/22 18:28 Total Creatine Kinase 38 units/L (55-170) L 04/06/22 18:28 Troponin T 0.100 ng/mL (0.00-0.029) H 04/06/22 18:28 NT-Pro-B Natriuret Pep 3636 pg/mL (0-900) H 04/06/22 14:29 Total Protein 6.4 g/dL (6.3-8.2) 04/06/22 18:28 Albumin 3.8 g/dL (3.9-5) L 04/06/22 18:28 Albumin/Globulin Ratio 1.5 % 04/06/22 18:28 Triglycerides 66 mg/dL (2-149) 04/06/22 18:28 Cholesterol 129 mg/dL (50-199) 04/06/22 18:28 LDL Cholesterol Direct 81 mg/dL (50-130) 04/06/22 18:28 HDL Cholesterol 41 mg/dL (40-59) 04/06/22 18:28 Cholesterol/HDL Ratio 3.14 % 04/06/22 18:28 TSH 0.629 mlU/mL (0.270-4.200) 04/06/22 14:29 Free T4 1.71 ng/dL (0.76-1.46) H 04/06/22 14:29 Urine Color Straw (Yellow) 04/06/22 17:43 Urine Turbidity Clear (Clear) 04/06/22 17:43 Specific [place] (Man) 1.010 (1.003-1.030) 04/06/22 17:43 Ur Protein (Man) Negative mg/dL (Negative) 04/06/22 17:43 Ur Ketones (Man) Negative (Negative) 04/06/22 17:43 Ur Nitrite (Man) Negative (Negative) 04/06/22 17:43 Urine Bilirubin (Man) Negative (Negative) 04/06/22 17:43 Leukocyte Esterase (Man) Negative (Negative) 04/06/22 17:43 Urine WBC (Auto) < 1.0 /HPF (0.0-6.0) 04/06/22 17:43 Urine RBC (Auto) 1.0 /HPF (0.0-6.0) 04/06/22 17:43 Urine RBC (Manual) Negative (Negative) 04/06/22 17:43 Salicylates < 0.3 mg/dL (2.8-20.0) L 04/06/22 18:28 Urine Opiates Screen Negative 04/06/22 17:43 Urine Methadone Screen Negative 04/06/22 17:43 Acetaminophen 5.0 ug/mL (10.0-30.0) L 04/06/22 18:28 Ur Barbiturates Screen Negative 04/06/22 17:43 Ur Phencyclidine Scrn Negative 04/06/22 17:43 Ur Amphetamines Screen Negative 04/06/22 17:43 U Benzodiazepines Scrn Negative 04/06/22 17:43 Urine Cocaine Screen Negative 04/06/22 17:43 U Marijuana (THC) Screen Negative 04/06/22 17:43 Drugs of Abuse Note Disclamer 04/06/22 17:43 Plasma/Serum Alcohol < 0.01 % (0-0.07) 04/06/22 18:28 [place]/IV: Voiding Method Urinal Active Medications - Current Medications Current Medications: Generic Name Dose Route Start Last Admin Trade Name Freq PRN Reason Stop Dose Admin Acetaminophen 650 mg 04/06/22 18:29 Acetaminophen 325 Mg Tab PO Q4H PRN Pain MILD(1-3)/Fever >100.5/[place] Albuterol 2.5 mg 04/06/22 18:29 Albuterol 2.5 Mg/3 Ml Nebu IH Q4HRT PRN Shortness Of Breath Apixaban 5 mg 04/06/22 22:00 04/08/22 10:29 Apixaban 5 Mg Tab PO 5 mg Q12HR KELI Administration Protocol Aspirin 81 mg 04/07/22 10:00 04/08/22 10:30 Aspirin 81 Mg Tab Chew PO 81 mg QDAY KELI Administration Atorvastatin Calcium 10 mg 04/07/22 10:00 04/08/22 10:29 Atorvastatin 10 Mg Tab PO 10 mg DAILY KELI Administration Carvedilol 3.125 mg 04/06/22 22:00 04/08/22 10:30 Carvedilol 3.125 Mg Tab PO 3.125 mg BID KELI Administration Furosemide 40 mg 04/08/22 10:00 04/08/22 10:29 Furosemide 40 Mg Tab PO 20 mg DAILY KELI Administration Hydromorphone HCl 0.5 mg 04/06/22 18:29 Hydromorphone 0.5 Mg/0.5 Ml Inj IV Q23H PRN Pain , Severe (7-10) Lisinopril 2.5 mg 04/06/22 22:00 04/08/22 10:30 Lisinopril 5 Mg Tab PO 2.5 mg BID KELI Administration Ondansetron HCl 4 mg 04/06/22 18:29 Ondansetron 4 Mg/2 Ml Inj IV Q8H PRN Nausea And Vomiting Oxycodone/Acetaminophen 1 tab 04/06/22 18:29 Oxycodone /Acetaminophen 5-325mg Tab PO Q16H PRN Pain, Moderate (4-6) Polyethylene Glycol 17 gm 04/07/22 18:21 04/07/22 18:28 Polyethylene Glycol 3350 17 Gm Powder PO 17 gm BID PRN Administration Constipation Sodium Chloride 10 ml 04/06/22 22:00 04/08/22 10:33 Sodium Chloride 0.9% 10 Ml Flush Syringe IV 10 ml BID KELI Administration Sodium Chloride 10 ml 04/06/22 18:29 Sodium Chloride 0.9% 10 Ml Flush Syringe IV PRN PRN LINE FLUSH Spironolactone 25 mg 04/07/22 10:00 04/08/22 10:29 Spironolactone 25 Mg Tab PO 25 mg QDAY KELI Administration
--- NOTE | 2022-04-09 09:57 | Progress Note ---
Assessment and Plan 1. Chronic combined systolic and diastolic heart failure 2. Dilated cardiomyopathy with biventricular failure left ventricular ejection fraction 20 to 25% 3. Permanent atrial fibrillation 4. Cerebrovascular disease 5. Dementia without behavioral abnormality type unspecified Patient is stable his chest x-ray shows no acute cardiopulmonary process i.e. 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 Patient has a LifeVest on Plan. Resume home medication continue present conservative management. Discharge planning Subjective Date of service: 04/09/22 Interval history: No cardiac complains. Objective Vital Signs Temp Pulse Pulse Resp BP BP Pulse Ox 04/09/22 08:23 56 L 95 04/09/22 08:22 98.4 F 18 92/68 04/09/22 05:03 61 04/09/22 04:09 97.2 F L 57 L 16 93/63 100 04/08/22 23:47 65 18 84/57 99 04/08/22 22:40 97.9 F 58 L 18 93/62 04/08/22 22:37 63 18 90/56 97 04/08/22 21:20 68 18 100 04/08/22 21:18 85/64 04/08/22 16:47 98.4 F 54 L 16 99/55 90 04/08/22 13:32 60 24 94 04/08/22 12:00 60 04/08/22 11:41 98.0 F 38 L 16 91/55 89 04/08/22 10:30 68 122/80 04/08/22 10:29 122/80 04/08/22 10:00 97 - Physical Examination General: Appears Well, No Apparent Distress HEENT: Positive: PERRL, Sinus Tenderness, Mucus Membranes Moist Neck: Positive: neck supple, trachea midline. Negative: JVD/HJR Cardiac: Positive: irregularly irregular, S1/S2, S3, PMI, Laterally Displaced. Negative: S4 Lungs: Positive: clear to auscultation, No Wheeze, Rales, Rhonchi Neuro: Positive: Grossly Intact, No Lateralizing Findings Abdomen: Positive: Soft, Active Bowel Sounds Skin: Negative: Rash Extremities: Absent: edema - Labs and Meds Comprehensive Metabolic Panel 04/09/22 Range/Units 04:51 Creatinine 1.0 (0.8-1.3) mg/dL - Telemetry EKG Rhythm: Atrial Fibrillation
--- NOTE | 2022-04-09 11:13 | Progress Note ---
Assessment and Plan Assessment and plan: #Acute on chronic combined systolic and diastolic heart failure #dilated cardiomyopathy -TTE 04/07/2022: LVEF 20-25%, thickened pericardium -continue IV lasix 20mg BID, coreg, and lisinopril at home doses -continue telemetry, patient has LifeVest and is compliant at home -Cardiology following, assistance appreciated #Chronic atrial fibrillation -continue eliquis and coreg -Cardiology following -continue telemetry #Vascular dementia-stable #Cerebral atherosclerosis -patient currently alert and oriented -maintain sleep-awake cycle to avoid delirium/worsening #Debility -PT evaluation pending #Advance care planning -Disease education conducted, care plan discussed, diagnoses discussed, progno sis discussed, patient is full code. Patient acknowledges understanding and agreement with care plan. NOK Stephanie Frazier was contacted [phone]. She has been having a hard time taking care of the patient at home. She would like him to come home with some assistance. +30 minutes. History Interval history: No acute events overnight. Patient has no complaints at this time. He ate 100% of his breakfast. Hospitalist Physical - Physical exam Narrative exam: GENERAL: Thin elderly male. In no acute distress. HEENT: Normocephalic. Atraumatic. NECK: Supple. CHEST/LUNGS: CTAB on room air HEART/CARDIOVASCULAR: RRR. No murmur, rubs or gallops appreciated. ABDOMEN: +BS. NT/ND. SKIN: No rashes noted. NEURO: No focal motor deficit. Follows all commands. MUSCULOSKELETAL: No joint effusion EXTREMITIES: No cyanosis, clubbing. He has 1+ b/l lower extremity edema improving. PSYCH: Cooperative. - Constitutional Vitals: Temp Pulse Resp BP Pulse Ox 98.4 F 56 L 18 92/68 95 04/09/22 08:22 04/09/22 08:23 04/09/22 08:22 04/09/22 08:22 04/09/22 08:23 General appearance: Present: mild distress HEART Score - HEART Score Troponin: Troponin T 0.100 ng/mL (0.00-0.029) H 04/06/22 18:28 Results - Labs CBC & Chem 7: 04/08/22 05:00 04/09/22 04:51 Labs: Laboratory Last Values WBC 7.5 K/mm3 (4.5-11.0) 04/08/22 05:00 RBC 4.65 M/mm3 (3.65-5.03) 04/08/22 05:00 Hgb 14.7 gm/dl (11.8-15.2) 04/08/22 05:00 Hct 42.8 % (35.5-45.6) 04/08/22 05:00 MCV 92 fl (84-94) 04/08/22 05:00 MCH 32 pg (28-32) 04/08/22 05:00 MCHC 34 % (32-34) 04/08/22 05:00 RDW 14.2 % (13.2-15.2) 04/08/22 05:00 Plt Count 169 K/mm3 (140-440) 04/08/22 05:00 Lymph % (Auto) 9.4 % (13.4-35.0) L 04/06/22 18:28 [place] % (Auto) 12.0 % (0.0-7.3) H 04/06/22 18:28 Eos % (Auto) 10.0 % (0.0-4.3) H 04/06/22 18:28 Baso % (Auto) 0.5 % (0.0-1.8) 04/06/22 18:28 Lymph # (Auto) 0.7 K/mm3 (1.2-5.4) L 04/06/22 18:28 [place] # (Auto) 0.9 K/mm3 (0.0-0.8) H 04/06/22 18:28 Eos # (Auto) 0.7 K/mm3 (0.0-0.4) H 04/06/22 18:28 Baso # (Auto) 0.0 K/mm3 (0.0-0.1) 04/06/22 18:28 Seg Neutrophils % 68.1 % (40.0-70.0) 04/06/22 18: Seg Neutrophils # 5.1 K/mm3 (1.8-7.7) 04/06/22 18:28 PT 17.9 Sec. (12.2-14.9) H 04/06/22 18:28 INR 1.32 (0.87-1.13) H 04/06/22 18:28 APTT 31.8 Sec. (24.2-36.6) 04/06/22 18:28 Sodium 133 mmol/L (137-145) L 04/08/22 04:00 Potassium 4.0 mmol/L (3.6-5.0) 04/08/22 04:00 Chloride 89.9 mmol/L (98-107) L 04/08/22 04:00 Carbon Dioxide 32 mmol/L (22-30) H 04/08/22 04:00 Anion Gap 15 mmol/L 04/08/22 04:00 BUN 41 mg/dL (9-20) H 04/08/22 04:00 Creatinine 1.0 mg/dL (0.8-1.3) 04/09/22 04:51 Estimated GFR > 60 ml/min 04/09/22 04:51 BUN/Creatinine Ratio 37 % 04/08/22 04:00 Glucose 101 mg/dL (75-100) H 04/08/22 04:00 Lactic Acid 1.80 mmol/L (0.7-2.0) 04/06/22 18:28 Calcium 9.1 mg/dL (8.4-10.2) 04/08/22 04:00 Magnesium 1.70 mg/dL (1.7-2.3) 04/06/22 14:29 Total Bilirubin 1.30 mg/dL (0.1-1.2) H 04/06/22 18:28 AST 31 units/L (5-40) 04/06/22 18:28 ALT 22 units/L (7-56) 04/06/22 18:28 Alkaline Phosphatase 64 units/L (35-129) 04/06/22 18:28 Total Creatine Kinase 38 units/L (55-170) L 04/06/22 18:28 Troponin T 0.100 ng/mL (0.00-0.029) H 04/06/22 18:28 NT-Pro-B Natriuret Pep 3636 pg/mL (0-900) H 04/06/22 14:29 Total Protein 6.4 g/dL (6.3-8.2) 04/06/22 18:28 Albumin 3.8 g/dL (3.9-5) L 04/06/22 18:28 Albumin/Globulin Ratio 1.5 % 04/06/22 18:28 Triglycerides 66 mg/dL (2-149) 04/06/22 18:28 Cholesterol 129 mg/dL (50-199) 04/06/22 18:28 LDL Cholesterol Direct 81 mg/dL (50-130) 04/06/22 18:28 HDL Cholesterol 41 mg/dL (40-59) 04/06/22 18:28 Cholesterol/HDL Ratio 3.14 % 04/06/22 18:28 TSH 0.629 mlU/mL (0.270-4.200) 04/06/22 14:29 Free T4 1.71 ng/dL (0.76-1.46) H 04/06/22 14:29 Urine Color Straw (Yellow) 04/06/22 17:43 Urine Turbidity Clear (Clear) 04/06/22 17:43 Specific [place] (Man) 1.010 (1.003-1.030) 04/06/22 17:43 Ur Protein (Man) Negative mg/dL (Negative) 04/06/22 17:43 Ur Ketones (Man) Negative (Negative) 04/06/22 17:43 Ur Nitrite (Man) Negative (Negative) 04/06/22 17:43 Urine Bilirubin (Man) Negative (Negative) 04/06/22 17:43 Leukocyte Esterase (Man) Negative (Negative) 04/06/22 17:43 Urine WBC (Auto) < 1.0 /HPF (0.0-6.0) 04/06/22 17:43 Urine RBC (Auto) 1.0 /HPF (0.0-6.0) 04/06/22 17:43 Urine RBC (Manual) Negative (Negative) 04/06/22 17:43 Salicylates < 0.3 mg/dL (2.8-20.0) L 04/06/22 18:28 Urine Opiates Screen Negative 04/06/22 17:43 Urine Methadone Screen Negative 04/06/22 17:43 Acetaminophen 5.0 ug/mL (10.0-30.0) L 04/06/22 18:28 Ur Barbiturates Screen Negative 04/06/22 17:43 Ur Phencyclidine Scrn Negative 04/06/22 17:43 Ur Amphetamines Screen Negative 04/06/22 17:43 U Benzodiazepines Scrn Negative 04/06/22 17:43 Urine Cocaine Screen Negative 04/06/22 17:43 U Marijuana (THC) Screen Negative 04/06/22 17:43 Drugs of Abuse Note Disclamer 04/06/22 17:43 Plasma/Serum Alcohol < 0.01 % (0-0.07) 04/06/22 18:28 Garvin/IV: Voiding Method Urinal Active Medications - Current Medications Current Medications: Generic Name Dose Route Start Last Admin Trade Name Freq PRN Reason Stop Dose Admin Acetaminophen 650 mg 04/06/22 18:29 Acetaminophen 325 Mg Tab PO Q4H PRN Pain MILD(1-3)/Fever >100.5/CAMACHO Albuterol 2.5 mg 04/06/22 18:29 Albuterol 2.5 Mg/3 Ml Nebu IH Q4HRT PRN Shortness Of Breath Apixaban 5 mg 04/06/22 22:00 04/08/22 21:07 Apixaban 5 Mg Tab PO 5 mg Q12HR KELI Administration Protocol Aspirin 81 mg 04/07/22 10:00 04/08/22 10:30 Aspirin 81 Mg Tab Chew PO 81 mg QDAY KELI Administration Atorvastatin Calcium 10 mg 04/07/22 10:00 04/08/22 10:29 Atorvastatin 10 Mg Tab PO 10 mg DAILY KELI Administration Carvedilol 3.125 mg 04/06/22 22:00 04/08/22 21:18 Carvedilol 3.125 Mg Tab PO Not Given BID KELI Furosemide 40 mg 04/08/22 10:00 04/08/22 10:29 Furosemide 40 Mg Tab PO 20 mg DAILY KELI Administration Hydromorphone HCl 0.5 mg 04/06/22 18:29 Hydromorphone 0.5 Mg/0.5 Ml Inj IV Q23H PRN Pain , Severe (7-10) Lisinopril 2.5 mg 04/06/22 22:00 04/08/22 21:18 Lisinopril 5 Mg Tab PO Not Given BID KELI Ondansetron HCl 4 mg 04/06/22 18:29 Ondansetron 4 Mg/2 Ml Inj IV Q8H PRN Nausea And Vomiting Oxycodone/Acetaminophen 1 tab 04/06/22 18:29 Oxycodone /Acetaminophen 5-325mg Tab PO Q16H PRN Pain, Moderate (4-6) Polyethylene Glycol 17 gm 04/07/22 18:21 04/07/22 18:28 Polyethylene Glycol 3350 17 Gm Powder PO 17 gm BID PRN Administration Constipation Sodium Chloride 10 ml 04/06/22 22:00 04/08/22 21:07 Sodium Chloride 0.9% 10 Ml Flush Syringe IV 10 ml BID KELI Administration Sodium Chloride 10 ml 04/06/22 18:29 Sodium Chloride 0.9% 10 Ml Flush Syringe IV PRN PRN LINE FLUSH Spironolactone 25 mg 04/07/22 10:00 04/08/22 10:29 Spironolactone 25 Mg Tab PO 25 mg QDAY KELI Administration
[2022-04-09] MEDS: ASPIRIN 81 MG TAB CHEW PO SCH (11:50)
[2022-04-09] MEDS: APIXABAN 5 MG TAB PO SCH ×2 (11:51→21:34)
[2022-04-09] MEDS: LISINOPRIL 5 MG TAB PO SCH ×2 (11:54→21:35)
[2022-04-09] MEDS: FUROSEMIDE 40 MG TAB PO SCH (11:55)
[2022-04-09] MEDS: SPIRONOLACTONE 25 MG TAB PO SCH (11:56)
[2022-04-09] MEDS: carvediloL 3.125 MG TAB PO SCH ×2 (11:56→21:35)
--- NOTE | 2022-04-09 16:43 | Electrocardiograph Report ---
[facility] Test Date: 2022-04-06 Test Time: 17:49:34 Pat Name: GINA STYLES Department: Room: A471 1 Gender: M House Coordinator: 911 : 1940 Requested By: ALLEY HEARD Order Number: [id number] Reading MD: Jazmyn Hall Measurements Intervals [place] Rate: 69 P: MI: QRS: 205 QRSD: 85 T: QT: 442 QTc: 474 Interpretive Statements Atrial fibrillation with well-controlled ventricular rate Ventricular premature complex Right axis deviation Low voltage QRS Compared to ECG 01/30/2022 01:44:34 No significant change Electronically Signed On 04-09-2022 16:42:51 EDT by Jazmyn Hall
[2022-04-10] MEDS: ASPIRIN 81 MG TAB CHEW PO SCH (09:41)
[2022-04-10] MEDS: APIXABAN 5 MG TAB PO SCH ×2 (09:41→21:36)
[2022-04-10] MEDS: carvediloL 3.125 MG TAB PO SCH ×2 (09:41→22:00)
[2022-04-10] MEDS: SPIRONOLACTONE 25 MG TAB PO SCH (09:42)
[2022-04-10] MEDS: FUROSEMIDE 40 MG TAB PO SCH (09:42)
[2022-04-10] MEDS: LISINOPRIL 5 MG TAB PO SCH ×2 (09:44→22:00)
[2022-04-10 09:58] LABS: Hematocrit 39.1 % (35.5-45.6); Hemoglobin 13.4 gm/dl (11.8-15.2); Mean Corpuscular HGB Conc 34 % (32-34); Mean Corpuscular Volume 93 fl (84-94); Platelet Count 160 K/mm3 (140-440); Red Blood Count 4.19 M/mm3 (3.65-5.03); Red Cell Distribution Width 14.1 % (13.2-15.2)
--- NOTE | 2022-04-10 12:53 | Progress Note ---
Assessment and Plan - Patient Problems (1) Chronic systolic heart failure Current Visit: Yes Status: Acute Plan to address problem: Patient has chronic systolic left ventricular failure, chronic dilated nonischemic cardiomyopathy, chronic atrial fibrillation. Continue guideline directed medical therapy as outlined. Stable for cardiac discharge. (2) Chronic atrial fibrillation Current Visit: Yes Status: Acute Plan to address problem: Patient was on warfarin anticoagulation at the time of his presentation, but has now been switched to Eliquis 5 mg twice daily. Subjective Date of service: 04/10/22 Principal diagnosis: Weakness, systolic heart failure Interval history: Patient is comfortable, looks and feels better today, states that he has been ambulating in the [place] with no symptoms. He wants to go home today. Objective Vital Signs Temp Pulse Resp BP Pulse Ox 04/10/22 08:10 18 96 04/10/22 07:33 98.3 F 56 L 17 97/58 100 04/10/22 05:00 52 L 04/10/22 04:00 18 96 04/10/22 03:36 98.1 F 57 L 16 86/53 98 04/09/22 23:27 64 80/52 100 04/09/22 21:35 61 106/64 04/09/22 21:00 62 04/09/22 20:03 99.0 F 61 16 106/64 100 04/09/22 16:08 97.3 F L 68 18 100/63 100 04/09/22 14:44 96 04/09/22 13:00 63 - Physical Examination General: Appears Well, No Apparent Distress HEENT: Positive: PERRL, Mucus Membranes Moist Neck: Positive: neck supple, trachea midline Cardiac: Positive: irregularly irregular Lungs: Positive: Decreased Breath Sounds Neuro: Positive: Grossly Intact, No Lateralizing Findings Abdomen: Positive: Soft, Active Bowel Sounds Skin: Positive: Clear Extremities: Absent: edema - Labs and Meds CBC 04/10/22 Range/Units 08:50 WBC 6.5 (4.5-11.0) K/mm3 RBC 4.19 (3.65-5.03) M/mm3 Hgb 13.4 (11.8-15.2) gm/dl Hct 39.1 (35.5-45.6) % Plt Count 160 (140-440) K/mm3
--- NOTE | 2022-04-10 19:55 | Progress Note ---
Assessment and Plan Assessment and plan: #Acute on chronic combined systolic and diastolic heart failure Continue NT failure medications Input output monitoring, low-sodium diet Fluid restriction, supportive care Cardiology following #dilated cardiomyopathy -TTE 04/07/2022: LVEF 20-25%, thickened pericardium -continue IV lasix 20mg BID, coreg, and lisinopril at home doses -continue telemetry, patient has LifeVest and is compliant at home -Cardiology following, assistance appreciated #Chronic atrial fibrillation/rate controlled -continue eliquis and coreg -Cardiology following -continue telemetry #Vascular dementia-stable #Cerebral atherosclerosis -patient currently alert and oriented -maintain sleep-awake cycle to avoid delirium/worsening #General debility -PT /OT evaluation and recommendations pending #Advance care planning -Disease education conducted, care plan discussed, diagnoses discussed, prognosis discussed, patient is full code. Patient acknowledges understanding and agreement with care plan. NOK Stephanie Frazier was contacted [phone]. She has been having a hard time taking care of the patient at home. She would like him to come home with some assistance. +30 minutes. Discharge planning per case management We will closely monitor the patient and adjust management as needed Plan of care reviewed with the patient and his nurse History Interval history: Seen and examined the patient at the bedside Patient's chart and medications reviewed Patient has no new complaints No new overnight events reported by the nursing Vital signs reviewed Hospitalist Physical - Constitutional Vitals: Temp Pulse Resp BP Pulse Ox 98.3 F 56 L 18 97/58 96 04/10/22 07:33 04/10/22 07:33 04/10/22 08:10 04/10/22 07:33 04/10/22 08:10 General appearance: Present: mild distress, well-nourished - EENT Eyes: Present: PERRL, EOM intact - Respiratory Respiratory effort: normal Respiratory: bilateral: diminished, negative: rales, rhonchi, wheezing - Cardiovascular Rhythm: regular Heart Sounds: Present: S1 & S2 - Extremities Extremities: no ischemia, No edema - Abdominal General gastrointestinal: soft, non-tender, non-distended, normal bowel sounds - Integumentary Integumentary: Present: clear, warm - Psychiatric Psychiatric: cooperative, other - Neurologic Neurologic: moves all extremities, other HEART Score - HEART Score Troponin: Troponin T 0.100 ng/mL (0.00-0.029) H 04/06/22 18:28 Results - Labs CBC & Chem 7: 04/10/22 08:50 04/09/22 04:51 Labs: Laboratory Last Values WBC 6.5 K/mm3 (4.5-11.0) 04/10/22 08:50 RBC 4.19 M/mm3 (3.65-5.03) 04/10/22 08:50 Hgb 13.4 gm/dl (11.8-15.2) 04/10/22 08:50 Hct 39.1 % (35.5-45.6) 04/10/22 08:50 MCV 93 fl (84-94) 04/10/22 08:50 MCH 32 pg (28-32) 04/10/22 08:50 MCHC 34 % (32-34) 04/10/22 08:50 RDW 14.1 % (13.2-15.2) 04/10/22 08:50 Plt Count 160 K/mm3 (140-440) 04/10/22 08:50 Lymph % (Auto) 9.4 % (13.4-35.0) L 04/06/22 18:28 [place] % (Auto) 12.0 % (0.0-7.3) H 04/06/22 18:28 Eos % (Auto) 10.0 % (0.0-4.3) H 04/06/22 18:28 Baso % (Auto) 0.5 % (0.0-1.8) 04/06/22 18:28 Lymph # (Auto) 0.7 K/mm3 (1.2-5.4) L 04/06/22 18:28 [place] # (Auto) 0.9 K/mm3 (0.0-0.8) H 04/06/22 18:28 Eos # (Auto) 0.7 K/mm3 (0.0-0.4) H 04/06/22 18:28 Baso # (Auto) 0.0 K/mm3 (0.0-0.1) 04/06/22 18:28 Seg Neutrophils % 68.1 % (40.0-70.0) 04/06/22 18:28 Seg Neutrophils # 5.1 K/mm3 (1.8-7.7) 04/06/22 18:28 PT 17.9 Sec. (12.2-14.9) H 04/06/22 18:28 INR 1.32 (0.87-1.13) H 04/06/22 18:28 APTT 31.8 Sec. (24.2-36.6) 04/06/22 18:28 Sodium 133 mmol/L (137-145) L 04/08/22 04:00 Potassium 4.0 mmol/L (3.6-5.0) 04/08/22 04:00 Chloride 89.9 mmol/L (98-107) L 04/08/22 04:00 Carbon Dioxide 32 mmol/L (22-30) H 04/08/22 04:00 Anion Gap 15 mmol/L 04/08/22 04:00 BUN 41 mg/dL (9-20) H 04/08/22 04:00 Creatinine 1.0 mg/dL (0.8-1.3) 04/09/22 04:51 Estimated GFR > 60 ml/min 04/09/22 04:51 BUN/Creatinine Ratio 37 % 04/08/22 04:00 Glucose 101 mg/dL (75-100) H 04/08/22 04:00 POC Glucose 81 mg/dL (70-105) 04/09/22 08:20 Lactic Acid 1.80 mmol/L (0.7-2.0) 04/06/22 18:28 Calcium 9.1 mg/dL (8.4-10.2) 04/08/22 04:00 Magnesium 1.70 mg/dL (1.7-2.3) 04/06/22 14:29 Total Bilirubin 1.30 mg/dL (0.1-1.2) H 04/06/22 18:28 AST 31 units/L (5-40) 04/06/22 18:28 ALT 22 units/L (7-56) 04/06/22 18:28 Alkaline Phosphatase 64 units/L (35-129) 04/06/22 18:28 Total Creatine Kinase 38 units/L (55-170) L 04/06/22 18:28 Troponin T 0.100 ng/mL (0.00-0.029) H 04/06/22 18:28 NT-Pro-B Natriuret Pep 3636 pg/mL (0-900) H 04/06/22 14:29 Total Protein 6.4 g/dL (6.3-8.2) 04/06/22 18:28 Albumin 3.8 g/dL (3.9-5) L 04/06/22 18:28 Albumin/Globulin Ratio 1.5 % 04/06/22 18:28 Triglycerides 66 mg/dL (2-149) 04/06/22 18:28 Cholesterol 129 mg/dL (50-199) 04/06/22 18:28 LDL Cholesterol Direct 81 mg/dL (50-130) 04/06/22 18:28 HDL Cholesterol 41 mg/dL (40-59) 04/06/22 18: Cholesterol/HDL Ratio 3.14 % 04/06/22 18:28 TSH 0.629 mlU/mL (0.270-4.200) 04/06/22 14:29 Free T4 1.71 ng/dL (0.76-1.46) H 04/06/22 14:29 Urine Color Straw (Yellow) 04/06/22 17:43 Urine Turbidity Clear (Clear) 04/06/22 17:43 Specific [place] (Man) 1.010 (1.003-1.030) 04/06/22 17:43 Ur Protein (Man) Negative mg/dL (Negative) 04/06/22 17:43 Ur Ketones (Man) Negative (Negative) 04/06/22 17:43 Ur Nitrite (Man) Negative (Negative) 04/06/22 17:43 Urine Bilirubin (Man) Negative (Negative) 04/06/22 17:43 Leukocyte Esterase (Man) Negative (Negative) 04/06/22 17:43 Urine WBC (Auto) < 1.0 /HPF (0.0-6.0) 04/06/22 17:43 Urine RBC (Auto) 1.0 /HPF (0.0-6.0) 04/06/22 17:43 Urine RBC (Manual) Negative (Negative) 04/06/22 17:43 Salicylates < 0.3 mg/dL (2.8-20.0) L 04/06/22 18:28 Urine Opiates Screen Negative 04/06/22 17:43 Urine Methadone Screen Negative 04/06/22 17:43 Acetaminophen 5.0 ug/mL (10.0-30.0) L 04/06/22 18:28 Ur Barbiturates Screen Negative 04/06/22 17:43 Ur Phencyclidine Scrn Negative 04/06/22 17:43 Ur Amphetamines Screen Negative 04/06/22 17:43 U Benzodiazepines Scrn Negative 04/06/22 17:43 Urine Cocaine Screen Negative 04/06/22 17:43 U Marijuana (THC) Screen Negative 04/06/22 17:43 Drugs of Abuse Note Disclamer 04/06/22 17:43 Plasma/Serum Alcohol < 0.01 % (0-0.07) 04/06/22 18:28 Garvin/IV: Voiding Method Urinal Active Medications - Current Medications Current Medications: Generic Name Dose Route Start Last Admin Trade Name Freq PRN Reason Stop Dose Admin Acetaminophen 650 mg 04/06/22 18:29 Acetaminophen 325 Mg Tab PO Q4H PRN Pain MILD(1-3)/Fever >100.5/[place]O Albuterol 2.5 mg 04/06/22 18:29 Albuterol 2.5 Mg/3 Ml Nebu IH Q4HRT PRN Shortness Of Breath Apixaban 5 mg 04/06/22 22:00 04/10/22 09:41 Apixaban 5 Mg Tab PO 5 mg Q12HR KELI Administration Protocol Aspirin 81 mg 04/07/22 10:00 04/10/22 09:41 Aspirin 81 Mg Tab Chew PO 81 mg QDAY KELI Administration Atorvastatin Calcium 10 mg 04/07/22 10:00 04/10/22 09:41 Atorvastatin 10 Mg Tab PO 10 mg DAILY KELI Administration Carvedilol 3.125 mg 04/06/22 22:00 04/10/22 09:41 Carvedilol 3.125 Mg Tab PO Not Given BID KELI Furosemide 40 mg 04/08/22 10:00 04/10/22 09:42 Furosemide 40 Mg Tab PO Not Given DAILY KELI Hydromorphone HCl 0.5 mg 04/06/22 18:29 Hydromorphone 0.5 Mg/0.5 Ml Inj IV Q23H PRN Pain , Severe (7-10) Lisinopril 2.5 mg 04/06/22 22:00 04/10/22 09:44 Lisinopril 5 Mg Tab PO Not Given BID KELI Ondansetron HCl 4 mg 04/06/22 18:29 Ondansetron 4 Mg/2 Ml Inj IV Q8H PRN Nausea And Vomiting Oxycodone/Acetaminophen 1 tab 04/06/22 18:29 Oxycodone /Acetaminophen 5-325mg Tab PO Q16H PRN Pain, Moderate (4-6) Polyethylene Glycol 17 gm 04/07/22 18:21 04/07/22 18:28 Polyethylene Glycol 3350 17 Gm Powder PO 17 gm BID PRN Administration Constipation Sodium Chloride 10 ml 04/06/22 22:00 04/10/22 09:42 Sodium Chloride 0.9% 10 Ml Flush Syringe IV 10 ml BID KELI Administration Sodium Chloride 10 ml 04/06/22 18:29 Sodium Chloride 0.9% 10 Ml Flush Syringe IV PRN PRN LINE FLUSH Spironolactone 25 mg 04/07/22 10:00 04/10/22 09:42 Spironolactone 25 Mg Tab PO Not Given QDAY KELI
--- NOTE | 2022-04-11 09:33 | Progress Note ---
Assessment and Plan Assessment and plan: #Acute on chronic combined systolic and diastolic heart failure Continue NT failure medications Input output monitoring, low-sodium diet Fluid restriction, supportive care Cardiology following #dilated cardiomyopathy -TTE 04/07/2022: LVEF 20-25%, thickened pericardium -continue IV lasix 20mg BID, coreg, and lisinopril at home doses -continue telemetry, patient has LifeVest and is compliant at home -Cardiology following, assistance appreciated #Chronic atrial fibrillation/rate controlled -continue eliquis and coreg -Cardiology following -continue telemetry #Vascular dementia-stable #Cerebral atherosclerosis -patient currently alert and oriented -maintain sleep-awake cycle to avoid delirium/worsening #General debility -PT /OT evaluation and recommendations pending #Advance care planning -Disease education conducted, care plan discussed, diagnoses discussed, prognosis discussed, patient is full code. Patient acknowledges understanding and agreement with care plan. NOK Stephanie Frazier was contacted [phone]. She has been having a hard time taking care of the patient at home. She would like him to come home with some assistance. +30 minutes. Discharge planning per case management We will closely monitor the patient and adjust management as needed Plan of care reviewed with the patient and his nurse 04/11/22; patient feels better discharge planning per case management PT recommended subacute rehab, we will closely monitor Versus home with home health per disease case manager rn History Interval history: I have seen and examined the patient at the bedside this morning Patient's chart and medications reviewed No overnight events reported by the nursing staff Patient feels slightly better No new complaints Vital signs noted Hospitalist Physical - Constitutional Vitals: Temp Pulse Resp BP Pulse Ox 97.8 F 59 L 18 87/56 96 04/11/22 04:26 04/11/22 04:26 04/11/22 07:03 04/11/22 04:26 04/11/22 07:03 General appearance: Present: mild distress, well-nourished - EENT Eyes: Present: PERRL, EOM intact - Neck Neck: Present: supple, normal ROM - Respiratory Respiratory effort: normal Respiratory: bilateral: diminished, rales, negative: rhonchi, wheezing - Cardiovascular Rhythm: regular Heart Sounds: Present: S1 & S2 - Extremities Extremities: no ischemia, No edema - Abdominal General gastrointestinal: soft, non-tender, non-distended, normal bowel sounds - Integumentary Integumentary: Present: clear, warm - Psychiatric Psychiatric: appropriate mood/affect, cooperative - Neurologic Neurologic: CNII-XII intact, moves all extremities HEART Score - HEART Score Troponin: Troponin T 0.100 ng/mL (0.00-0.029) H 04/06/22 18:28 Results - Labs CBC & Chem 7: 04/10/22 08:50 04/09/22 04:51 Labs: Laboratory Last Values WBC 6.5 K/mm3 (4.5-11.0) 04/10/22 08:50 RBC 4.19 M/mm3 (3.65-5.03) 04/10/22 08:50 Hgb 13.4 gm/dl (11.8-15.2) 04/10/22 08:50 Hct 39.1 % (35.5-45.6) 04/10/22 08:50 MCV 93 fl (84-94) 04/10/22 08:50 MCH 32 pg (28-32) 04/10/22 08:50 MCHC 34 % (32-34) 04/10/22 08:50 RDW 14.1 % (13.2-15.2) 04/10/22 08:50 Plt Count 160 K/mm3 (140-440) 04/10/22 08:50 Lymph % (Auto) 9.4 % (13.4-35.0) L 04/06/22 18:28 [place] % (Auto) 12.0 % (0.0-7.3) H 04/06/22 18:28 Eos % (Auto) 10.0 % (0.0-4.3) H 04/06/22 18:28 Baso % (Auto) 0.5 % (0.0-1.8) 04/06/22 18:28 Lymph # (Auto) 0.7 K/mm3 (1.2-5.4) L 04/06/22 18:28 [place] # (Auto) 0.9 K/mm3 (0.0-0.8) H 04/06/22 18:28 Eos # (Auto) 0.7 K/mm3 (0.0-0.4) H 04/06/22 18:28 Baso # (Auto) 0.0 K/mm3 (0.0-0.1) 04/06/22 18:28 Seg Neutrophils % 68.1 % (40.0-70.0) 04/06/22 18:28 Seg Neutrophils # 5.1 K/mm3 (1.8-7.7) 04/06/22 18:28 PT 17.9 Sec. (12.2-14.9) H 04/06/22 18:28 INR 1.32 (0.87-1.13) H 04/06/22 18:28 APTT 31.8 Sec. (24.2-36.6) 04/06/22 18:28 Sodium 133 mmol/L (137-145) L 04/08/22 04:00 Potassium 4.0 mmol/L (3.6-5.0) 04/08/22 04:00 Chloride 89.9 mmol/L (98-107) L 04/08/22 04:00 Carbon Dioxide 32 mmol/L (22-30) H 04/08/22 04:00 Anion Gap 15 mmol/L 04/08/22 04:00 BUN 41 mg/dL (9-20) H 04/08/22 04:00 Creatinine 1.0 mg/dL (0.8-1.3) 04/09/22 04:51 Estimated GFR > 60 ml/min 04/09/22 04:51 BUN/Creatinine Ratio 37 % 04/08/22 04:00 Glucose 101 mg/dL (75-100) H 04/08/22 04:00 POC Glucose 81 mg/dL (70-105) 04/09/22 08:20 Lactic Acid 1.80 mmol/L (0.7-2.0) 04/06/22 18:28 Calcium 9.1 mg/dL (8.4-10.2) 04/08/22 04:00 Magnesium 1.70 mg/dL (1.7-2.3) 04/06/22 14:29 Total Bilirubin 1.30 mg/dL (0.1-1.2) H 04/06/22 18:28 AST 31 units/L (5-40) 04/06/22 18:28 ALT 22 units/L (7-56) 04/06/22 18:28 Alkaline Phosphatase 64 units/L (35-129) 04/06/22 18:28 Total Creatine Kinase 38 units/L (55-170) L 04/06/22 18:28 Troponin T 0.100 ng/mL (0.00-0.029) H 04/06/22 18:28 NT-Pro-B Natriuret Pep 3636 pg/mL (0-900) H 04/06/22 14:29 Total Protein 6.4 g/dL (6.3-8.2) 04/06/22 18:28 Albumin 3.8 g/dL (3.9-5) L 04/06/22 18:28 Albumin/Globulin Ratio 1.5 % 04/06/22 18:28 Triglycerides 66 mg/dL (2-149) 04/06/22 18:28 Cholesterol 129 mg/dL (50-199) 04/06/22 18:28 LDL Cholesterol Direct 81 mg/dL (50-130) 04/06/22 18:28 HDL Cholesterol 41 mg/dL (40-59) 04/06/22 18:28 Cholesterol/HDL Ratio 3.14 % 04/06/22 18:28 TSH 0.629 mlU/mL (0.270-4.200) 04/06/22 14:29 Free T4 1.71 ng/dL (0.76-1.46) H 04/06/22 14:29 Urine Color Straw (Yellow) 04/06/22 17:43 Urine Turbidity Clear (Clear) 04/06/22 17:43 Specific [place] (Man) 1.010 (1.003-1.030) 04/06/22 17:43 Ur Protein (Man) Negative mg/dL (Negative) 04/06/22 17:43 Ur Ketones (Man) Negative (Negative) 04/06/22 17:43 Ur Nitrite (Man) Negative (Negative) 04/06/22 17:43 Urine Bilirubin (Man) Negative (Negative) 04/06/22 17:43 Leukocyte Esterase (Man) Negative (Negative) 04/06/22 17:43 Urine WBC (Auto) < 1.0 /HPF (0.0-6.0) 04/06/22 17:43 Urine RBC (Auto) 1.0 /HPF (0.0-6.0) 04/06/22 17:43 Urine RBC (Manual) Negative (Negative) 04/06/22 17:43 Salicylates < 0.3 mg/dL (2.8-20.0) L 04/06/22 18:28 Urine Opiates Screen Negative 04/06/22 17:43 Urine Methadone Screen Negative 04/06/22 17:43 Acetaminophen 5.0 ug/mL (10.0-30.0) L 04/06/22 18:28 Ur Barbiturates Screen Negative 04/06/22 17:43 Ur Phencyclidine Scrn Negative 04/06/22 17:43 Ur Amphetamines Screen Negative 04/06/22 17:43 U Benzodiazepines Scrn Negative 04/06/22 17:43 Urine Cocaine Screen Negative 04/06/22 17:43 U Marijuana (THC) Screen Negative 04/06/22 17:43 Drugs of Abuse Note Disclamer 04/06/22 17:43 Plasma/Serum Alcohol < 0.01 % (0-0.07) 04/06/22 18:28 [place]/IV: Voiding Method Urinal Active Medications - Current Medications Current Medications: Generic Name Dose Route Start Last Admin Trade Name Freq PRN Reason Stop Dose Admin Acetaminophen 650 mg 04/06/22 18:29 Acetaminophen 325 Mg Tab PO Q4H PRN Pain MILD(1-3)/Fever >100.5/CAMACHO Albuterol 2.5 mg 04/06/22 18:29 Albuterol 2.5 Mg/3 Ml Nebu IH Q4HRT PRN Shortness Of Breath Apixaban 5 mg 04/06/22 22:00 04/10/22 21:36 Apixaban 5 Mg Tab PO 5 mg Q12HR KELI Administration Protocol Aspirin 81 mg 04/07/22 10:00 04/10/22 09:41 Aspirin 81 Mg Tab Chew PO 81 mg QDAY KELI Administration Atorvastatin Calcium 10 mg 04/07/22 10:00 04/10/22 09:41 Atorvastatin 10 Mg Tab PO 10 mg DAILY KELI Administration Carvedilol 3.125 mg 04/06/22 22:00 04/10/22 22:00 Carvedilol 3.125 Mg Tab PO Not Given BID KELI Furosemide 40 mg 04/08/22 10:00 04/10/22 09:42 Furosemide 40 Mg Tab PO Not Given DAILY KELI Hydromorphone HCl 0.5 mg 04/06/22 18:29 Hydromorphone 0.5 Mg/0.5 Ml Inj IV Q23H PRN Pain , Severe (7-10) Lisinopril 2.5 mg 04/06/22 22:00 04/10/22 22:00 Lisinopril 5 Mg Tab PO Not Given BID KEIL Ondansetron HCl 4 mg 04/06/22 18:29 Ondansetron 4 Mg/2 Ml Inj IV Q8H PRN Nausea And Vomiting Oxycodone/Acetaminophen 1 tab 04/06/22 18:29 Oxycodone /Acetaminophen 5-325mg Tab PO Q16H PRN Pain, Moderate (4-6) Polyethylene Glycol 17 gm 04/07/22 18:21 04/07/22 18:28 Polyethylene Glycol 3350 17 Gm Powder PO 17 gm BID PRN Administration Constipation Sodium Chloride 10 ml 04/06/22 22:00 04/10/22 21:36 Sodium Chloride 0.9% 10 Ml Flush Syringe IV 10 ml BID KELI Administration Sodium Chloride 10 ml 04/06/22 18:29 Sodium Chloride 0.9% 10 Ml Flush Syringe IV PRN PRN LINE FLUSH Spironolactone 25 mg 04/07/22 10:00 04/10/22 09:42 Spironolactone 25 Mg Tab PO Not Given QDAY KELI
[2022-04-11] MEDS: SPIRONOLACTONE 25 MG TAB PO SCH (09:52)
[2022-04-11] MEDS: carvediloL 3.125 MG TAB PO SCH ×2 (09:52→21:20)
[2022-04-11] MEDS: FUROSEMIDE 40 MG TAB PO SCH (09:52)
[2022-04-11] MEDS: LISINOPRIL 5 MG TAB PO SCH ×2 (09:53→21:19)
[2022-04-11] MEDS ORDERED: MIDODRINE 5 MG TAB PO SCH (10:00)
[2022-04-11] MEDS: APIXABAN 5 MG TAB PO SCH ×2 (10:38→21:20)
[2022-04-11] MEDS: ASPIRIN 81 MG TAB CHEW PO SCH (10:38)
[2022-04-11] MEDS: MIDODRINE 2.5 MG TAB PO SCH ×2 (13:27→17:31)
[2022-04-11] MEDS: POLYETHYLENE GLYCOL 3350 17 GM POWDER PO PRN (13:27)
--- NOTE | 2022-04-11 14:19 | Progress Note ---
Assessment and Plan - Patient Problems (1) Chronic systolic heart failure Current Visit: Yes Status: Acute Plan to address problem: Patient has chronic systolic left ventricular failure, chronic dilated nonischemic cardiomyopathy, chronic atrial fibrillation. Continue guideline directed medical therapy as outlined. Stable for cardiac discharge. (2) Chronic atrial fibrillation Current Visit: Yes Status: Acute Plan to address problem: Patient was on warfarin anticoagulation at the time of his presentation, but has now been switched to Eliquis 5 mg twice daily. Subjective Date of service: 04/11/22 Principal diagnosis: Weakness, systolic heart failure Interval history: Patient is comfortable, looks and feels better today, no new cardiac complaints. Objective Vital Signs Temp Pulse Resp BP Pulse Ox 04/11/22 11:33 98.3 F 61 18 98/63 100 04/11/22 07:03 18 96 04/11/22 04:26 97.8 F 59 L 16 87/56 100 04/11/22 04:00 18 96 04/10/22 23:34 98.3 F 63 16 90/63 98 04/10/22 22:00 66 85/56 04/10/22 19:19 99.1 F 66 16 85/56 100 - Physical Examination General: Appears Well, No Apparent Distress HEENT: Positive: PERRL, Mucus Membranes Moist Neck: Positive: neck supple, trachea midline Cardiac: Positive: irregularly irregular Lungs: Positive: Decreased Breath Sounds Neuro: Positive: Grossly Intact, No Lateralizing Findings Abdomen: Positive: Soft, Active Bowel Sounds Skin: Positive: Clear Extremities: Absent: edema
[2022-04-12 05:56] LABS: Hematocrit 40.1 % (35.5-45.6); Hemoglobin 13.5 gm/dl (11.8-15.2); Mean Corpuscular HGB Conc 34 % (32-34); Mean Corpuscular Volume 94 fl (84-94); Platelet Count 161 K/mm3 (140-440); Red Blood Count 4.27 M/mm3 (3.65-5.03); Red Cell Distribution Width 14.1 % (13.2-15.2)
[2022-04-12 08:44] VITALS: BP 116/79
[2022-04-12] MEDS: MIDODRINE 2.5 MG TAB PO SCH ×3 (08:57→17:06)
[2022-04-12] MEDS: APIXABAN 5 MG TAB PO SCH (09:03)
[2022-04-12] MEDS: ASPIRIN 81 MG TAB CHEW PO SCH (09:03)
[2022-04-12] MEDS: carvediloL 3.125 MG TAB PO SCH (11:41)
[2022-04-12] MEDS: FUROSEMIDE 40 MG TAB PO SCH (12:11)
[2022-04-12] MEDS: SPIRONOLACTONE 25 MG TAB PO SCH (12:11)
[2022-04-12] MEDS: LISINOPRIL 5 MG TAB PO SCH (12:11)
--- NOTE | 2022-04-12 12:13 | Progress Note ---
Assessment and Plan - Patient Problems (1) Chronic systolic heart failure Current Visit: Yes Status: Acute Plan to address problem: Patient has chronic systolic left ventricular failure, chronic dilated nonischemic cardiomyopathy, chronic atrial fibrillation. Continue guideline directed medical therapy as outlined. Stable for cardiac discharge. (2) Chronic atrial fibrillation Current Visit: Yes Status: Acute Plan to address problem: Patient was on warfarin anticoagulation at the time of his presentation, but has now been switched to Eliquis 5 mg twice daily. Subjective Date of service: 04/12/22 Principal diagnosis: Weakness, systolic heart failure Interval history: Patient is resting comfortably in bed, no new cardiac events reported. On cardiac monitor, there is well-controlled atrial fibrillation with ventricular rate in the 70s. Review of his telemetry histogram shows occasional, short bursts of nonsustained ventricular tachycardia. It will be noted that the patient is on active LifeVest monitoring. Objective Vital Signs Temp Pulse Resp BP Pulse Ox 04/12/22 11:41 116/79 04/12/22 07:27 98.4 F 64 18 116/79 97 04/12/22 04:09 97.4 F L 65 16 92/65 100 04/12/22 01:06 96 04/11/22 23:52 97.7 F 65 16 105/71 100 04/11/22 22:00 65 04/11/22 18:56 99.0 F 69 16 88/60 99 04/11/22 15:51 98.3 F 77 17 85/54 99 - Physical Examination General: Appears Well, No Apparent Distress HEENT: Positive: PERRL, Mucus Membranes Moist Neck: Positive: neck supple, trachea midline Cardiac: Positive: irregularly irregular Lungs: Positive: Decreased Breath Sounds Neuro: Positive: Grossly Intact, No Lateralizing Findings Abdomen: Positive: Soft, Active Bowel Sounds Skin: Positive: Clear Extremities: Absent: edema - Labs and Meds CBC 04/12/22 Range/Units 05:09 WBC 6.5 (4.5-11.0) K/mm3 RBC 4.27 (3.65-5.03) M/mm3 Hgb 13.5 (11.8-15.2) gm/dl Hct 40.1 (35.5-45.6) % Plt Count 161 (140-440) K/mm3 Comprehensive Metabolic Panel 04/12/22 Range/Units 05:09 Creatinine 0.9 (0.8-1.3) mg/dL
--- NOTE | 2022-04-12 13:53 | Discharge Summary ---
Providers - Providers Date of Admission: 04/06/22 18:29 Date of discharge: 04/12/22 Attending physician: FRANK GALAN 04/07/22 10:38 Consult to Physician [CONS] Routine Comment: Consulting Provider: CASSY BROOKS Physician Instructions: Reason For Exam: CHF exacerbation 04/07/22 17:28 Physical Therapy Evaluation and Treat [CONS] Routine Comment: Reason For Exam: debility Primary care physician: LICENSED PSYCHIATRIC TECHNICIAN Hospitalization Reason for admission: Generalized weakness/acute on chronic systolic congestive heart failure Condition: Stable Pertinent studies: Chest x-ray; no acute cardiopulmonary abnormality noted Echocardiogram; LVEF 20 to 25% mild posterior pericardial effusion severe concentric LVH Hospital course: 82-year-old male patient with significant past medical history of atrial fibrillation on therapeutic anticoagulation with Eliquis congestive heart failure General debility vascular dementia cerebral atherosclerosis was admitted through emergency room generalized weakness and altered level of consciousness worsening for the last 2 weeks worsening shortness of breath and decreased exercise tolerance patient also gives history of increased weight gain initial evaluation is consistent with acute on chronic systolic congestive heart failure patient was placed on NT failure medications subsequently evaluated by marketing administrative assistant and patient's echocardiogram LV ejection fraction 20 to 25% Patient symptoms slowly but gradually improved physical therapy evaluated the patient and recommended rolling walker and subacute rehab if family is not able to take care of the patient otherwise patient can be discharged home with home health services and home PT Case management assisted with discharge planning and after discussions with the family being discharged home with home health services Patient is hemodynamically and clinically stable with discharge Fall precautions, and continue supervision. Discharge diagnosis: #Acute on chronic combined systolic and diastolic heart failure Continue NT failure medications Input output monitoring, low-sodium diet Fluid restriction, supportive care Cardiology following #dilated cardiomyopathy -TTE 04/07/2022: LVEF 20-25%, thickened pericardium -continue IV lasix 20mg BID, coreg, and lisinopril at home doses -continue telemetry, patient has LifeVest and is compliant at home -Cardiology following, assistance appreciated #Chronic atrial fibrillation/rate controlled -continue eliquis and coreg -Cardiology following -continue telemetry #Vascular dementia-stable #Cerebral atherosclerosis -patient currently alert and oriented -maintain sleep-awake cycle to avoid delirium/worsening #General debility -PT /OT evaluation and recommendations pending Case management assisted with discharge planning With home health services and home health PT Patient is hemodynamically and clinically stable at discharge Fall precautions, and continue supervision Patient is stable at discharge Disposition: 06 HOME HEALTH CARE SERVICE Final Discharge Diagnosis (Prints w/discharge instructions): Acute on chronic combined systolic and diastolic congestive heart failure. Dilated cardiomyopathy EF 20 to 25%. Chronic atrial fibrillation rate controlled. Vascular dementia stable. Cerebral atherosclerosis stable. General debility Time spent for discharge: 35 minutes Core Measure Documentation - Palliative Care Palliative Care/ Comfort Measures: Not Applicable - Core Measures Any of the following diagnoses?: heart failure - Heart Failure Discharge Requirements ENOCH/ARB for LVSD if EF <40%: Yes Beta rashmi at discharge: Yes Exam - Constitutional Vitals: Temp Pulse Resp BP Pulse Ox 98.4 F 64 18 116/79 95 04/12/22 07:27 04/12/22 07:27 04/12/22 13:18 04/12/22 11:41 04/12/22 13:18 General appearance: Present: no acute distress, well-nourished - EENT Eyes: Present: PERRL, EOM intact - Neck Neck: Present: supple, normal ROM - Respiratory Respiratory effort: normal Respiratory: bilateral: diminished, rales, negative: rhonchi, wheezing - Cardiovascular Rhythm: regular Heart Sounds: Present: S1 & S2 - Extremities Extremities: no ischemia, No edema - Abdominal General gastrointestinal: Present: soft, non-tender, non-distended, normal bowel sounds - Integumentary Integumentary: Present: clear, warm - Musculoskeletal Musculoskeletal: strength equal bilaterally, generalized weakness - Psychiatric Psychiatric: appropriate mood/affect, cooperative - Neurologic Neurologic: moves all extremities Plan Activity: advance as tolerated, fall precautions Diet: other (Cardiac diet as tolerated) Additional Instructions: If you have worsening symptoms contact MD or go to the nearest emergency room as needed. Fall precautions. Aspiration precautions. Close supervision. Follow-up primary care physician, follow marketing administrative assistant per schedule Follow up with: CATRACHITA SMITH MD [Primary Care Provider] - 7 Days CASSY BROOKS MD [Staff Physician] - 14 Days Prescriptions: Spironolactone [Aldactone] 25 mg PO QDAY #30 Aspirin BABY CHEW TAB 81 mg PO DAILY #30 AtorvaSTATin 10 mg PO DAILY #30 carvediloL [Coreg] 3.125 mg PO BID #60 tablet Apixaban [Eliquis] 5 mg PO Q12HR #60 tablet Furosemide [Lasix] 40 mg PO DAILY #30 polyethylene glycoL 3350 [Miralax 3350] 17 gm PO BID PRN #30 powd.pack PRN Reason: Constipation oxyCODONE /ACETAMINOPHEN [Percocet 5/325 mg] 1 tab PO BID PRN #10 tablet PRN Reason: Pain, Moderate (4-6) Midodrine [Proamatine] 2.5 mg PO TID@0800,1200,1600 #60 tablet Lisinopril [Zestril] 5 mg PO DAILY #30
== END 2022-04-12 17:45 | disposition home health service (06) | DRG 292 ==
LOC: ED 15:32 → 4A 18:29
PROVIDERS: ADMIT Internal Medicine; ATTEND Internal Medicine
DX: I50.43 Acute on chronic combined systolic (congestive) and diastolic (congestive) heart failure (principal); I42.0 Dilated cardiomyopathy; I48.11 Longstanding persistent atrial fibrillation; I67.2 Cerebral atherosclerosis; F01.50 Vascular dementia, unspecified severity, without behavioral disturbance, psychotic disturbance, mood disturbance, and anxiety; Z79.899 Other long term (current) drug therapy; Z79.82 Long term (current) use of aspirin; Z79.01 Long term (current) use of anticoagulants; R53.81 Other malaise; Z82.49 Family history of ischemic heart disease and other diseases of the circulatory system
CPT/HCPCS: 36415; 71045; 80048; 80053; 80061; 80307; 80320; 81001; 82140; 82550; 82565; 82962; 83735; 83880; 84439; 84443; 84484; 85025; 85027; 85610; 85730; 93005; 93306; 94640; G0378; J3490; C8929; G0480; J1940; J7030; J7040